=== PATIENT | female | born 1950 | race Caucasian/White ===

== ENCOUNTER 2019-10-04 12:29 | Inpatient (IN) | payer OTHER, MEDICARE ==
[2019-10-04] MEDS ORDERED: FAMOTIDINE 20 MG/2 ML VIAL IV ONE (13:16)
[2019-10-04] MEDS ORDERED: HYDROMORPHONE HCL 1 MG/ML INJ ONE (13:16)
[2019-10-04] MEDS ORDERED: NA CHLORIDE 0.9% 1,000 ML ONE (13:16)
[2019-10-04] MEDS ORDERED: ONDANSETRON 4 MG/2 ML VIAL ONE (13:16)
[2019-10-04 13:26] LABS: Absolute Lymphocytes (CBC) 2.4 K/uL (0.7-4.9); Basophils % 1.2 % (0-1.3); Hematocrit 41.4 % (36.0-45.0); Lymphocytes % 37.9 % (15.3-44.8); MPV 8.9 fL (7.6-11.3); RBC Red Blood Cell Count 4.73 M/uL (3.86-4.86)
--- NOTE | 2019-10-04 13:30 | RAD REPORT ---
EXAM DESCRIPTION: RAD - Chest Single View - 10/04/2019 12:59 pm CLINICAL HISTORY: CHEST PAIN COMPARISON: Chest Pa And Lat (2 Views) dated 09/22/2018 TECHNIQUE: AP portable chest image was obtained 10/04/2019 12:59 pm . FINDINGS: Lungs are clear. Heart and vasculature are normal. No measurable pleural effusion and no p neumothorax. No acute bony abnormality seen. No acute aortic finding. Mediastinal and hilar granuloma tous type calcifications are seen. IMPRESSION: No acute cardiopulmonary process. No significant change from comparison.
[2019-10-04 13:33] LABS: ALT/SGPT 23 U/L (12-78); AST/SGOT 21 U/L (15-37); Albumin 3.9 g/dL (3.4-5.0); Alkaline Phosphatase 95 U/L (45-117); BUN Blood Urea Nitrogen 16 mg/dL (7-18); Bicarbonate 27 mmol/L (21-32); Bilirubin Direct 0.2 mg/dL (0-0.2); Bilirubin Total 0.5 mg/dL (0.2-1.0); Glucose Level 91 mg/dL (74-106); Magnesium 2.2 mg/dL (1.8-2.4); NT PRO-BNP 103 pg/mL (<125); Potassium 3.9 mmol/L (3.5-5.1); Protein, Total 8.1 g/dL (6.4-8.2); Sodium Level 144 mmol/L (136-145); Troponin (Emerg Dept Use Only) < 0.02 ng/mL (0.0-0.045)
[2019-10-04 13:35] LABS: Protime INR 1.01
--- NOTE | 2019-10-04 14:35 | EDPHYS ---
Physician Documentation [facility] Name: Mary Roberson Age: 68 yrs Sex: Female : 1950 Arrival Date: 10/04/2019 Time: 12:35 Bed 7 Private MD: ED Physician Maxim Glasgow HPI: 10/03 14:32 This 68 yrs old Female presents to ER via EMS with complaints of Chest Pain > ma2 29 y/o. 14:32 The patient or guardian reports chest pain that is located primarily in the substernal ma2 area. Onset: gradually, 1 hour(s) ago. Associated signs and symptoms: Pertinent negatives: abdominal pain, diaphoresis, dizziness, lower extremity swelling. Severity of pain: At its worst the pain was moderate in the emergency department the pain has resolved. The patient has not experienced similar symptoms in the past. Historical: - Allergies: 12:25 unknown antibiotics; rb1 - Home Meds: 12:28 losartan 100 mg oral tab 1 tab once daily [Active]; amlodipine 10 mg tab 1 tab once rb1 daily [Active]; carvedilol 6.25 mg oral tab 1 tab 2 times per day [Active]; atorvastatin 10 mg oral tab 1 tab once daily [Active]; famotidine 20 mg Oral tab 1 tab 2 times per day [Active]; Ventolin HFA 90 mcg/actuation Nebulizer HFAA 1 puff twice a day [Active]; Osphena 60 mg oral tab 0.5 tab every other day [Active]; aspirin 81 mg Oral chew 1 tab once daily [Active]; Tylenol Arthritis Pain 650 mg oral TbER 2 tabs twice a day [Active]; cetirizine 10 mg oral tab 1 tab once daily [Active]; ClearLax 17 gram/dose oral powd once daily [Active]; vitamin E 400 unit Oral cap daily [Active]; Emergen-C 1,000 mg oral pwep daily [Active]; Hair,Skin and Nails 5000 mcg oral tab [Active]; CoQ-10 100 mg oral cap [Active]; multi-probiotics [Active]; Cosamin DS oral oral [Active]; melatonin 0.5 mg Oral tab [Active]; - PMHx: 12:25 Hypertension; Fibromyalgia; carotid blockage; rb1 - PSHx: 12:25 Tonsillectomy; Appendectomy; Tubal ligation; right knee; rb1 - Immunization history:: Adult Immunizations up to date. - Social history:: Smoking status: Patient/guardian denies using Patient/guardian denies using alcohol, street drugs, The patient lives with family. - Family history:: not pertinent. ROS: 14:32 Constitutional: Negative for fever, chills, and weight loss. ma2 14:32 All other systems are negative. Exam: 14:32 Constitutional: This is a well developed, well nourished patient who is awake, alert, ma2 and in no acute distress. Chest/axilla: Normal chest wall appearance and motion. Nontender with no deformity. No lesions are appreciated. Cardiovascular: Regular rate and rhythm with a normal S1 and S2. No gallops, murmurs, or rubs. Normal PMI, no JVD. No pulse deficits. Respiratory: Lungs have equal breath sounds bilaterally, clear to auscultation and percussion. No rales, rhonchi or wheezes noted. No increased work of breathing, no retractions or nasal flaring. Abdomen/GI: Soft, non-tender, with normal bowel sounds. No distension or tympany. No guarding or rebound. No evidence of tenderness throughout. MS/ Extremity: Pulses equal, no cyanosis. Neurovascular intact. Full, normal range of motion. Neuro: Awake and alert, GCS 15, oriented to person, place, time, and situation. Cranial nerves II-XII grossly intact. Motor strength 5/5 in all extremities. Sensory grossly intact. Cerebellar exam normal. Normal gait. Vital Signs: 12:25 BP 182 / 64; Pulse 68; Resp 16; Temp 97.9(O); Pulse Ox 100% on R/A; rb1 12:28 BP 182 / 64; Pulse 68; Resp 16; Temp 97.9(O); Pulse Ox 100% on R/A; Weight 63.5 kg (R); rb1 Height 5 ft. 0 in. (152.40 cm) (R); 13:25 BP 178 / 65; Pulse 63; Resp 17; Pulse Ox 98% on R/A; rb1 14:25 BP 188 / 70; Pulse 67; Resp 17; Pulse Ox 99% on R/A; rb1 15:25 BP 186 / 72; Pulse 67; Resp 17; Pulse Ox 99% on R/A; rb1 12:28 Body Mass Index 27.34 (63.50 kg, 152.40 cm) rb1 MDM: 12:36 Patient medically screened. ma2 14:32 Differential diagnosis: abnormal EKG, gastroesophageal reflux disease (GERD), pleurisy, ma2 stable angina. HEART Score: History:. The patient was given aspirin in the Emergency Department. AMRITA Risk Score: not applicable. Data reviewed: vital signs, nurses notes. Counseling: I had a detailed discussion with the patient and/or guardian regarding: the historical points, exam findings, and any diagnostic results supporting the discharge/admit diagnosis, the presence of at least one elevated blood pressure reading (>120/80) during this emergency department visit, the need for outpatient follow up. Response to treatment: the patient's symptoms have markedly improved after treatment. 10/03 12:36 Order name: Basic Metabolic Panel; Complete Time: 14:17 ma2 10/03 12:36 Order name: CBC with Diff; Complete Time: 14:17 ma2 10/03 12:36 Order name: LFT's; Complete Time: 14:17 ma2 10/03 12:36 Order name: Magnesium; Complete Time: 14:17 ma2 10/03 12:36 Order name: NT PRO-BNP; Complete Time: 14:17 ma2 10/03 12:36 Order name: PT-INR; Complete Time: 14:17 ma2 10/03 12:36 Order name: Troponin (emerg Dept Use Only); Complete Time: 14:17 ma2 10/03 14:44 Order name: Basic Metabolic Panel EDMS 10/03 14:44 Order name: Basic Metabolic Panel EDMS 10/03 14:44 Order name: CBC with Automated Diff EDMS 10/03 14:44 Order name: CBC with Automated Diff EDMS 10/03 14:44 Order name: Troponin I EDMS 10/03 14:44 Order name: Troponin I EDMS 10/03 14:45 Order name: Troponin I EDMS 10/03 12:36 Order name: XRAY Chest (1 view); Complete Time: 14:17 ma2 10/03 12:36 Order name: EKG; Complete Time: 12:37 ma2 10/03 12:36 Order name: Cardiac monitoring; Complete Time: 13:27 ma2 10/03 12:36 Order name: EKG - Nurse/Tech; Complete Time: 13:27 ma2 10/03 12:36 Order name: IV Saline Lock; Complete Time: 13:27 ma2 10/03 12:36 Order name: Labs collected and sent; Complete Time: 13:27 ma2 10/03 14:44 Order name: CONS Physician Consult EDCT 10/03 14:44 Order name: Regular EDMS 10/03 14:44 Order name: EKG Electrocardiogram EDCT 10/03 14:44 Order name: EKG Electrocardiogram EDCT 10/03 14:44 Order name: EKG Electrocardiogram EDCT 10/03 14:44 Order name: EKG Electrocardiogram EDCT 10/03 12:36 Order name: O2 Per Protocol; Complete Time: 13:28 ma2 10/03 12:36 Order name: O2 Sat Monitoring; Complete Time: 14:10 ma2 Administered Medications: 13:20 Drug: NS 0.9% 1000 ml Route: IV; Rate: 1 bolus; Site: left hand; rb1 13:20 Drug: Dilaudid 1 mg Route: IVP; Site: left hand; rb1 13:35 Follow up: Response: No adverse reaction; Pain is decreased rb1 13:20 Drug: Zofran (Ondansetron) 4 mg Route: IVP; Site: left hand; rb1 13:35 Follow up: Response: No adverse reaction rb1 13:20 Drug: Pepcid 20 mg Route: IVP; Site: left hand; rb1 13:35 Follow up: Response: No adverse reaction rb1 Disposition: 10/04/19 14:35 Hospitalization ordered by Feliciano Diallo for Observation. Preliminary diagnosis is Chest pain on breathing. - Bed requested for Telemetry/MedSurg (observation). - Status is Observation. rb1 - Condition is Stable. - Problem is new. - Symptoms are unchanged. Signatures: Dispatcher [employer] [facility] Harper Miller RN RN dw Barber, Rebecca, RN RN rb1 Maxim Glagsow MD MD ma2 Corrections: (The following items were deleted from the chart) 15:07 14:35 Hospitalization Ordered by Feliciano Diallo MD for Observation. Preliminary diagnosis dw is Chest pain on breathing. Bed requested for Telemetry/MedSurg (observation). Status is Observation. Condition is Stable. Problem is new. Symptoms are unchanged. ma2 16:00 15:07 10/04/2019 14:35 Hospitalization Ordered by Feliciano Diallo MD for Observation. rb1 Preliminary diagnosis is Chest pain on breathing. Bed requested for Telemetry/MedSurg (observation). Status is Observation. Condition is Stable. Problem is new. Symptoms are unchanged. dw
--- NOTE | 2019-10-04 14:35 | ER ---
Nurse's Notes [facility] Name: Mary Roberson Age: 68 yrs Sex: Female : 1950 Arrival Date: 10/04/2019 Time: 12:35 Bed 7 Private MD: Diagnosis: Chest pain on breathing Presentation: 10/03 12:28 Chief complaint: EMS states: Pt. is A \T\ O x 4, c/o SOB and chest pain that radiates to rb1 the back and jaw. BP 226/92, EMS administered Nitro 0.4 mg SL x 1. BP 164/98, P 70, BS 86. Coronavirus screen: The patient has NOT traveled to [place] in the past 14 days. The patient has NOT had contact with known and/or suspected case of Coronavirus. Ebola Screen: Patient negative for fever greater than or equal to 101.5 degrees Fahrenheit, and additional compatible Ebola Virus Disease symptoms. Initial Sepsis Screen: Does the patient meet any 2 criteria? No. Patient's initial sepsis screen is negative. Does the patient have a suspected source of infection? No. Patient's initial sepsis screen is negative. Risk Assessment: Do you want to hurt yourself or someone else? Patient reports no desire to harm self or others. 12:28 Method Of Arrival: EMS: [facility] rb1 12:28 Acuity: LAURIE 3 rb1 Triage Assessment: 12:25 General: Appears in no apparent distress. comfortable, Behavior is calm, cooperative. rb1 Pain: Complains of pain in chest Pain radiates to back and jaw. Neuro: Level of Consciousness is awake, alert, obeys commands, Oriented to person, place, time, situation. Cardiovascular: Capillary refill < 3 seconds is brisk in bilateral fingers. Respiratory: Airway is patent Respiratory effort is even, unlabored, Respiratory pattern is regular, symmetrical. GI: No signs and/or symptoms were reported involving the gastrointestinal system. : No signs and/or symptoms were reported regarding the genitourinary system. Derm: Skin is pink, warm \T\ dry. Historical: - Allergies: 12:25 unknown antibiotics; rb1 - Home Meds: 12:28 losartan 100 mg oral tab 1 tab once daily [Active]; amlodipine 10 mg tab 1 tab once rb1 daily [Active]; carvedilol 6.25 mg oral tab 1 tab 2 times per day [Active]; atorvastatin 10 mg oral tab 1 tab once daily [Active]; famotidine 20 mg Oral tab 1 tab 2 times per day [Active]; Ventolin HFA 90 mcg/actuation Nebulizer HFAA 1 puff twice a day [Active]; Osphena 60 mg oral tab 0.5 tab every other day [Active]; aspirin 81 mg Oral chew 1 tab once daily [Active]; Tylenol Arthritis Pain 650 mg oral TbER 2 tabs twice a day [Active]; cetirizine 10 mg oral tab 1 tab once daily [Active]; ClearLax 17 gram/dose oral powd once daily [Active]; vitamin E 400 unit Oral cap daily [Active]; Emergen-C 1,000 mg oral pwep daily [Active]; Hair,Skin and Nails 5000 mcg oral tab [Active]; CoQ-10 100 mg oral cap [Active]; multi-probiotics [Active]; Cosamin DS oral oral [Active]; melatonin 0.5 mg Oral tab [Active]; - PMHx: 12:25 Hypertension; Fibromyalgia; carotid blockage; rb1 - PSHx: 12:25 Tonsillectomy; Appendectomy; Tubal ligation; right knee; rb1 - Immunization history:: Adult Immunizations up to date. - Social history:: Smoking status: Patient/guardian denies using Patient/guardian denies using alcohol, street drugs, The patient lives with family. - Family history:: not pertinent. Screenin:28 Abuse screen: Denies threats or abuse. Nutritional screening: No deficits noted. rb1 Tuberculosis screening: No symptoms or risk factors identified. Fall Risk None identified. Assessment: 12:28 General: See triage assessment. rb1 12:55 Reassessment: Called lab to come and draw the labs due to the pt. being a difficult rb1 stick. 13:47 Reassessment: Patient appears in no apparent distress at this time. Patient and/or rb1 family updated on plan of care and expected duration. Pain level reassessed. Patient is alert, oriented x 3, equal unlabored respirations, skin warm/dry/pink. Family at the bedside. 14:47 Reassessment: Patient appears in no apparent distress at this time. No changes from rb1 previously documented assessment. 15:25 Reassessment: Called report to ROSE Bennett. Information from the SBAR was given. All rb1 questions asked and answered. 15:31 Reassessment: Patient appears in no apparent distress at this time. Patient and/or rb1 family updated on plan of care and expected duration. Pain level reassessed. Patient is alert, oriented x 3, equal unlabored respirations, skin warm/dry/pink. Vital Signs: 12:25 BP 182 / 64; Pulse 68; Resp 16; Temp 97.9(O); Pulse Ox 100% on R/A; rb1 12:28 BP 182 / 64; Pulse 68; Resp 16; Temp 97.9(O); Pulse Ox 100% on R/A; Weight 63.5 kg (R); rb1 Height 5 ft. 0 in. (152.40 cm) (R); 13:25 BP 178 / 65; Pulse 63; Resp 17; Pulse Ox 98% on R/A; rb1 14:25 BP 188 / 70; Pulse 67; Resp 17; Pulse Ox 99% on R/A; rb1 15:25 BP 186 / 72; Pulse 67; Resp 17; Pulse Ox 99% on R/A; rb1 12:28 Body Mass Index 27.34 (63.50 kg, 152.40 cm) rb1 ED Course: 12:25 Arm band placed on right wrist. rb1 12:28 Patient has correct armband on for positive identification. Placed in gown. Bed in low rb1 position. Call light in reach. Side rails up X 1. quality assurance monitor chassis on. Pulse ox on. NIBP on. Warm blanket given. 12:28 Maintain EMS IV. Dressing intact. Good blood return noted. Site clean \T\ dry. Gauge \T\ rb 1 site: 18 G L hand. 12:35 Patient arrived in ED. rb1 12:35 Flavia Wells, RN is Primary Nurse. rb1 12:36 Maxim Glasgow MD is Attending Physician. ma2 12:39 Triage completed. rb1 12:57 X-ray completed. Portable x-ray completed in exam room. Patient tolerated procedure jb2 well. 12:58 EKG done, by technical training coordinator. reviewed by Maxim Glasgow MD. at1 13:04 XRAY Chest (1 view) In Process Unspecified. EDMS 14:35 Feliciano Diallo MD is Hospitalizing Provider. ma2 15:38 No provider procedures requiring assistance completed. Patient admitted, IV remains in rb1 place. Administered Medications: 13:20 Drug: NS 0.9% 1000 ml Route: IV; Rate: 1 bolus; Site: left hand; rb1 13:20 Drug: Dilaudid 1 mg Route: IVP; Site: left hand; rb1 13:35 Follow up: Response: No adverse reaction; Pain is decreased rb1 13:20 Drug: Zofran (Ondansetron) 4 mg Route: IVP; Site: left hand; rb1 13:35 Follow up: Response: No adverse reaction rb1 13:20 Drug: Pepcid 20 mg Route: IVP; Site: left hand; rb1 13:35 Follow up: Response: No adverse reaction rb1 Outcome: 14:35 Decision to Hospitalize by Provider. ma2 15:38 Admitted to Tele accompanied by tech, via wheelchair, room 412, with chart, Report rb1 called to ROSE Bennett 15:38 Condition: stable 15:38 Instructed on the need for admit. 15:42 Patient left the ED. rb1 Signatures: Dispatcher [employer] EDMS David Andino2 Alexandrea Watson, electronic news gathering camera person EKG Tat1 Flavia Wells, RN RN rb1 Maxim Glasgow MD MD ma2 Corrections: (The following items were deleted from the chart) 16:01 16:00 Patient left the ED. rb1 rb1
[2019-10-04 15:53] VITALS: BMI 27.3
[2019-10-04] MEDS: cloNIDine HCL 0.1 MG TAB PO PRN (16:38)
--- NOTE | 2019-10-04 18:13 | P.HP ---
Certification for Inpatient Patient admitted to: Observation With expected LOS: <2 Midnights Practitioner: I am a practitioner with admitting privileges, knowledge of patient current condition, hospital course, and medical plan of care. Services: Services provided to patient in accordance with Admission requirements found in Title 42 Section 412.3 of the Code of Federal Regulations Patient History Date of Service: 10/04/19 Reason for admission: RIGHT SIDE CHEST PAIN History of Present Illness: HAS HTN THAT IS LABILE, COMES WITH R SIDE CHEST WALL PAIN, RADIATION TO RIGHT SIDE OF JAW FOR AN HOUR, SHE RECEIVED PAIN MEDS FROM ER AND HAD RELIEF. SHE HAS NORMAL EKG AND NORMAL ENZYMES. HER BP WAS HIGH AT 200 SYSTOLIC. SHE IS NOW PAINFREE. Allergies No Known Allergies Allergy (Verified 03/27/17 09:29) Home Medications: Amlodipine [Norvasc*] 10 mg PO DAILY 03/26/17 Ascorbic Acid/Multivit-Min [Emergen-C 1,000 mg Packet] 1 packet PO SEECOM Cholecalciferol (Vitamin D3) [Vitamin D3] 1 cap PO DAILY 03/26/17 carvediloL [Coreg*] 12.5 mg PO BID 03/26/17 Acetaminophen [Tylenol Arthritis] 2 tab PO BEDTIME 10/04/19 Atorvastatin Calcium 1 tab PO BEDTIME 10/04/19 Famotidine 1 tab PO BID 10/04/19 Losartan Potassium 1 tab PO DAILY 10/04/19 - Past Medical/Surgical History Has patient received pneumonia vaccine in the past: Yes Diabetic: No -: HTN -: Fibromyalgia -: carotid blockage -: COPD -: Tonsillectomy -: Appy -: Tubal ligation -: Total knee Sx, Right - Social History Smoking Status: Former smoker Alcohol use: Yes CD- Drugs: No Caffeine use: Yes Place of Residence: Home Review of Systems 10-point ROS is otherwise unremarkable Physical Examination - Vital Signs Temperature: 96.9 F Blood Pressure: 157/70 Pulse: 69 Respirations: 16 Pulse Ox (%): 100 - Physical Exam General: Alert, Mild distress HEENT: Atraumatic, PERRLA, Mucous membr. moist/pink, EOMI, Sclerae nonicteric Neck: Supple, 2+ carotid pulse no bruit, No LAD, Without JVD or thyroid abnormality Respiratory: Clear to auscultation bilaterally, Normal air movement Cardiovascular: Regular rate/rhythm, Normal S1 S2 Gastrointestinal: Normal bowel sounds, No tenderness Musculoskeletal: No tenderness Integumentary: No rashes Neurological: Normal gait, Normal speech, Normal strength at 5/5 x4 extr, Normal tone, Normal affect Lymphatics: No axilla or inguinal lymphadenopathy - Studies Laboratory Data (last 24 hrs) 10/04/19 13:05: PT 12.0, INR 1.01 10/04/19 13:05: WBC 6.4, Hgb 14.0, Hct 41.4, Plt Count 247 10/04/19 13:05: Sodium 144, Potassium 3.9, BUN 16, Creatinine 0.66, Glucose 91, Magnesium 2.2, Total Bilirubin 0.5, AST 21, ALT 23, Alkaline Phosphatase 95 Assessment and Plan - Problems (Diagnosis) (1) Atypical chest pain Current Visit: Yes Status: Acute Plan: ORDER AOR DISSECTION PROTOCOL PAIN SEEMS NON CARDIAC IN ORIGIN. DR. FERREIRA OR COLLIN WILL SEE HER. (2) Labile essential hypertension Current Visit: Yes Status: Chronic Plan: CHRONIC ISSUE. RENAL DOPPLER ORDER. 24 HOUR URINE TEST FOR BP. - Advance Directives Does patient have a Living Will: Yes Does patient have a Durable POA for Healthcare: Yes
--- NOTE | 2019-10-04 19:30 | RAD REPORT ---
EXAM DESCRIPTION: CT - Angio Aorta For Dissection - 10/04/2019 7:03 pm CLINICAL HISTORY: . Chest and ABD pain COMPARISON: 2017 TECHNIQUE: Computed tomography angiography of the chest, abdomen pelvis were obtained. 100 cc Isovue 370 was administered intravenously. Coronal and sagittal reconstruction were performed. MIP 3D reconstruction was performed All CT scans are performed using dose optimization technique as appropriate and may include automated exposure control or mA/KV adjustment according to patient size. FINDINGS: An aortic dissection is not seen. An aortic aneurysm is not displayed. High-grade stenosis celiac artery. SMA and CASSY are patent . 2 left renal arteries. A high-grade stenosis inferior left renal artery. Moderate stenosis proximal l eft renal artery 7 x 3 millimeter right middle lobe nodule unchanged likely benign. Mild centrilobular emphysema A 10 millimeter nodule right lobe of thyroid gland A pericardial effusion is not seen. A pleural effusion is not noted. The liver,spleen, pancreas adrenals kidneys demonstrate no significant abnormality. No evidence of diverticulitis. A moderate amount stool within the colon IMPRESSION: Negative for an aortic dissection. 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 Follow-up ultrasound in 1 year is recommende d for re-evaluation
[2019-10-04] MEDS ORDERED: ACETAMINOPHEN 500 MG TAB PO ONE (20:11)
[2019-10-04 20:52] LABS: MPV 8.3 fL (7.6-11.3)
[2019-10-04 20:54] LABS: Platelet Estimate ADEQ
[2019-10-04] MEDS: ACETAMINOPHEN PO SCH (21:00)
[2019-10-04] MEDS ORDERED: ACETAMINOPHEN 500 MG TAB PO PRN (21:00)
[2019-10-04] MEDS: carvediloL 12.5 MG TAB PO SCH (21:22)
[2019-10-04] MEDS: ATORVASTATIN 10 MG TAB PO SCH (21:26)
[2019-10-04] MEDS: ENOXAPARIN 40 MG/0.4 ML SQ SCH (21:27)
[2019-10-04] MEDS: FAMOTIDINE 20 MG TAB PO SCH (22:41)
[2019-10-04] MEDS ORDERED: MELATONIN 3 MG TABLET PO ONE (22:48)
[2019-10-05 04:25] LABS: Absolute Lymphocytes (CBC) 2.5 K/uL (0.7-4.9); Basophils % 1.1 % (0-1.3); Hematocrit 34.8 % (36.0-45.0); Lymphocytes % 41.5 % (15.3-44.8); MPV 8.9 fL (7.6-11.3); RBC Red Blood Cell Count 3.93 M/uL (3.86-4.86)
[2019-10-05 04:42] LABS: BUN Blood Urea Nitrogen 14 mg/dL (7-18); Bicarbonate 29 mmol/L (21-32); Glucose Level 92 mg/dL (74-106); Potassium 3.9 mmol/L (3.5-5.1); Sodium Level 144 mmol/L (136-145)
--- NOTE | 2019-10-05 08:26 | EKG ---
Test Date: 2019-10-04 Test Time: 12:36:24 Crawler Tractor Operator: JAYDEN MEASUREMENT RESULTS: Intervals: Rate: 60 AL: 186 QRSD: 88 QT: 408 QTc: 408 [place]: P: 1 AL: 186 QRS: 19 T: 25 INTERPRETIVE STATEMENTS: Normal sinus rhythm Normal ECG Compared to ECG 03/26/2017 09:58:57 No significant changes Electronically Signed On 10-05-19 08:25:02 TECHNICAL TRAINING COORDINATOR by Jose Majano
[2019-10-05] MEDS ORDERED: HOME MED 1 EA UNK (Cholecalciferol (Vitamin D3) [Vitamin D3] 1 CAP) PO SCH (09:00)
[2019-10-05] MEDS ORDERED: HOME MED 1 EA UNK (Losartan Potassium [Losartan Potassium] 1 TAB) PO SCH (09:00)
[2019-10-05] MEDS ORDERED: VITAMIN D 5,000 UNIT CAP PO SCH (09:00)
--- NOTE | 2019-10-05 09:04 | EKG ---
Test Date: 2019-10-05 Test Time: 08:25:12 Admissions Coordinator: JAYDEN MEASUREMENT RESULTS: Intervals: Rate: 56 SD: 216 QRSD: 84 QT: 406 QTc: 391 [place]: P: 18 SD: 216 QRS: 18 T: 48 INTERPRETIVE STATEMENTS: Sinus bradycardia with 1st degree AV block Cannot rule out Anterior infarct, age undetermined Abnormal ECG Compared to ECG 10/04/2019 12:36:24 First degree AV block now present Myocardial infarct finding now present Sinus rhythm no longer present Electronically Signed On 10-05-19 09:03:46 BRAND EXECUTIVE by Jose Majano
[2019-10-05] MEDS ORDERED: REGADENOSON 0.4 MG/5 ML SYR IV ONE (09:18)
--- NOTE | 2019-10-05 09:18 | CON ---
History Of Present Illness: Ms. Roberson was having chest pain and came to the hospital. Since being he re, EKGs and enzymes look okay. 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 The patie nt does not have any history of atherosclerotic vascular disease that required any interventions. No stents or heart attacks or bypasses or strokes. She has longstanding hypertension, but her blood pr essure has been more labile recently. She does not have diabetes. She was a cigarette smoker but qu it more than 20 years ago. She has dyslipidemia. Medicine List: 1.Vitamin D3. 2.Coreg 12.5 b.i.d. 3.Amlodipine. 4.Atorvastatin 10. 5.Losartan 100. 6.Famotidine 20 b.i.d. 7.Melatonin at bedtime. 8.She uses Tylenol p.r.n. Physical Examination: Vital Signs: She is 5 feet tall, 140 pounds. General: Alert, oriented, pleasant, not in distress. Heart: No carotid bruit. Lungs: Clear. Cardiac: Normal. I do not appreciate any abdominal bruit. Since she has atherosclerosis noted on t he CT angio, I would recommend we do a pharmacologic stress test today and then consider either doing an angiogram of the aorta with possible stent to the renal artery and celiac artery, I think that in combination with a cardiac catheterization. Thank you very much for your kind referral of Ms. Roberson. I will follow her with you. MARTÍNEZ Voice ID: [id number] Report ID: [id number]
--- NOTE | 2019-10-05 11:26 | ECHO ---
HEIGHT: 5 ft 0 in WEIGHT: 140 lb 0 oz DATE OF STUDY: 10/05/[address]: Jose Majano MD 2-DIMENSIONAL: YES M.MODE: YES DOPPLER: YES COLOR FLOW: YES TDS: NO PORTABLE: NO DEFINITY: NO BUBBLE STUDY: NO DIAGNOSIS: HYPERTENSION/ CHEST PAIN CARDIAC HISTORY: CATHERIZATION: NO SURGERY: NO PROSTHETIC VALVE: NO PACEMAKER: NO MEASUREMENTS (cm) DIASTOLIC (NORMALS) SYSTOLIC (NORMALS) IVSd 1.1 (0.6-1.2) LA Diam 3.5 (1.9-4.0) LVEF 87% LVIDd 4.4 (3.5-5.7) LVIDs 1.9 (2.0-3.5) %FS 56% LVPWd 1.0 (0.6-1.2) Ao Diam 2.3 (2.0-3.7) 2 DIMENSIONAL ASSESSMENT: RIGHT ATRIUM: NORMAL LEFT ATRIUM: NORMAL RIGHT VENTRICLE: NORMAL LEFT VENTRICLE: NORMAL TRICUSPID VALVE: NORMAL MITRAL VALVE: NORMAL PULMONIC VALVE: NORMAL AORTIC VALVE: NORMAL PERICARDIAL EFFUSION: NONE AORTIC ROOT: NORMAL LEFT VENTRICULAR WALL MOTION: NORMAL. DOPPLER/COLOR FLOW: NORMAL. COMMENTS: NORMAL 2D ECHO WITH DOPPLER. TECHNOLOGIST: BETY GARNER
[2019-10-05] MEDS: FAMOTIDINE 20 MG TAB PO SCH ×2 (11:59→20:37)
[2019-10-05] MEDS: carvediloL 12.5 MG TAB PO SCH ×2 (11:59→20:37)
[2019-10-05] MEDS: LOSARTAN POTASSIUM 50 MG TABLET PO SCH (11:59)
[2019-10-05] MEDS: ENOXAPARIN 40 MG/0.4 ML SQ SCH (11:59)
[2019-10-05] MEDS: AMLODIPINE 10 MG TAB PO SCH (11:59)
--- NOTE | 2019-10-05 12:07 | RAD REPORT ---
EXAM DESCRIPTION: NM - Rest Stress Cardiac Imaging - 10/05/2019 12:00 pm CLINICAL HISTORY: CP Chest pain. COMPARISON: No comparisons TECHNIQUE: The patient was administered approximately 10mCi of Tc 99m Sestamibi prior to resting SPE CT imaging of the heart. The patient was then administered approximately 30 mCi of Tc 99m Sestamibi f ollowing exercise or pharmacologic stress. Multiplanar SPECT images were reviewed. FINDINGS: No stress induced ischemic defect is seen to suggest stress induced ischemia. No fixed def ect is seen to suggest hibernating myocardium or scarred myocardium. The end diastolic volume is 73 ml, the end systolic volume is 18 ml, and the ejection fraction is 75 %. IMPRESSION: No stress induced ischemia.
--- NOTE | 2019-10-05 13:02 | TREADPHA ---
DX: HYPERTENSION, CHEST PAIN Date of Study: 10/05/2019 Ht: 5 0 Wt: 140 lb 0 oz Consulting Physician: COLLIN MEDICATIONS: TYLENOL, NORVASC, LIPITOR, COREG, CATAPRES, LOVENOX, COZAAR HISTORY: 68 YEAR OLD FEMALE WITH HISTORY OF HYPERTENSION, HIGH CHOLESTEROL, GERD, AND FIBROMYALGIA. ADMITTED FOR SHORTNESS OF BREATH AND CHEST PAIN. DENIES PAIN AT TIME OF TESTING. PHYSICIAL EXAMINATION: RESTING B.P.: 173/65 RESTING H.R.: 60 RESTING EKG: SINUS WITH FIRST DEGREE AV BLOCK. PROTOCOL: LEXISCAN EXERCISE TIME: 3:30 B.P. AT PEAK STRESS: 159/60 IMPRESSION: LEXISCAN STRESS TEST PERFORMED. CARDIOLITE INJECTED PER PROTOCOL. NO SUPRAVENTRICULAR TACHYCARDIA, VENTRICULAR TACHYCARDIA OR ARRYTHMIA NOTED. PATIENT DENIED CHEST PAIN. TOLERATED WELL. SEE NUCLEAR MEDICINE REPORT. NON DIAGNOSTIC EKG WITH LEXISCAN STRESS.
[2019-10-05] MEDS: ATORVASTATIN 10 MG TAB PO SCH (20:37)
[2019-10-05] MEDS: cloNIDine HCL 0.1 MG TAB PO PRN (20:38)
[2019-10-05] MEDS: ACETAMINOPHEN PO SCH (20:41)
[2019-10-05] MEDS ORDERED: MELATONIN 0.5 MG PO SCH (21:00)
--- NOTE | 2019-10-05 21:05 | P.PN ---
Subjective Date of Service: 10/05/19 Chief Complaint: BP HIGH. Subjective: No C/O voiced SHE IS STABLE. WAITING FOR ST TEST THIS AM. DONE LATER AND IT NORMAL. SHE HAS BILATERAL RENAL ARTERY STENOSIS THAT SHE WILL GET STENTS IN AM AFTER ANGIOGRAM CONFIRMATION. Review of Systems 10-point ROS is otherwise unremarkable Physical Examination - Vital Signs Temperature: 97.2 F Blood Pressure: 188/81 Pulse: 65 Respirations: 16 Pulse Ox (%): 98 - Physical Exam General: In no apparent distress HEENT: Atraumatic, PERRLA, EOMI Neck: Supple, JVD not distended Respiratory: Clear to auscultation bilaterally, Normal air movement Cardiovascular: Regular rate/rhythm, Normal S1 S2 Gastrointestinal: Normal bowel sounds, No tenderness Musculoskeletal: No tenderness Integumentary: No rashes Neurological: Normal speech, Normal tone, Normal affect Lymphatics: No axilla or inguinal lymphadenopathy - Studies Medications List Reviewed: Yes Assessment And Plan - Current Problems (Diagnosis) (1) Atypical chest pain Current Visit: Yes Status: Acute Plan: ORDER AOR DISSECTION PROTOCOL PAIN SEEMS NON CARDIAC IN ORIGIN. DR. FERREIRA OR COLLIN WILL SEE HER. NEG ST TEST. (2) Labile essential hypertension Current Visit: Yes Status: Chronic Plan: CHRONIC ISSUE. RENAL DOPPLER ORDER. 24 HOUR URINE TEST FOR BP. STENTS FOR RENAL ARTERY STENOSIS IN AM.
[2019-10-06 04:23] LABS: Absolute Lymphocytes (CBC) 2.3 K/uL (0.7-4.9); Basophils % 1.6 % (0-1.3); Hematocrit 37.3 % (36.0-45.0); Lymphocytes % 40.7 % (15.3-44.8); MPV 8.9 fL (7.6-11.3); RBC Red Blood Cell Count 4.21 M/uL (3.86-4.86)
[2019-10-06] MEDS: AMLODIPINE 10 MG TAB PO SCH (06:10)
[2019-10-06] MEDS: LOSARTAN POTASSIUM 50 MG TABLET PO SCH (06:10)
[2019-10-06] MEDS: carvediloL 12.5 MG TAB PO SCH (06:11)
[2019-10-06] MEDS: FAMOTIDINE 20 MG TAB PO SCH (07:09)
[2019-10-06] MEDS ORDERED: HEPA 1000U/500MLS 2,000 UNIT/1,000 ML BAG IV ONE (08:06)
[2019-10-06] MEDS ORDERED: NA CHLORIDE 0.9% 500 ML ONE (08:30)
[2019-10-06] MEDS ORDERED: MIDAZOLAM HCL 2 MG/2 ML INJ ONE ×2 (08:35→08:52)
[2019-10-06] MEDS ORDERED: FENTANYL CITR 100 MCG/2 ML ONE (08:35)
[2019-10-06] MEDS ORDERED: ACETYLCYST 20% 4 ML VIAL IH ONE (09:19)
[2019-10-06 10:22] VITALS: O2SAT 97
[2019-10-06] MEDS ORDERED: NA CHLORIDE 0.9% 1,000 ML IV ONE (10:46)
[2019-10-06] MEDS ORDERED: ACETYLCYST 20% 800 MG/4 ML VIAL PO ONE (10:46)
--- NOTE | 2019-10-06 10:47 | OP ---
Surgeon: Peter Monahan MD Zinc Plate Grainer: Padmini Freeman. Patient will receive the IV fluid hydration as well as Mucomyst. She received approximately 250 cc o f contrast and did not want to do an intervention today to avoid an excessive dye load. Procedures: Abdominal angiogram with runoff, bilateral selective renal angiogram and selective sandro c artery angiogram. Indication: Abnormal CT angiogram of the abdomen, abdominal pain, and hypertension. Patient was bro ught to the cath lab technologist as an inpatient on 10/06/2019. She was prepped and draped in routine sterile fa shion, given Versed for sedation. A 6-Spanish sheath introduced in the right common femoral artery jones ccessfully. A pigtail catheter was advanced in the mid abdominal aorta. Angiography was done reveal ing possible celiac artery stenosis and obvious bilateral renal artery stenosis. Multiple views were obtained in lateral views and as well as GHANAIAN caudal views and then selective angiography was done us ing a PERKINS catheter into the celiac artery showing about a 50% celiac artery stenosis in the celiac t runk, although I could not tell for sure if this could be the arcuate ligament as well. Following th at, the renal arteries were selected. There was an accessory left renal artery that was small and pa tent. The main left renal artery and right renal artery were both selected and angiography was done showing bilateral renal artery stenosis about 80% to 90%. The aorta and the iliacs were normal. Complications: None. Blood Loss: 5 cc. A StarClose was used to close the procedure. Anesthesia: Total conscious sedation was 30 minutes. 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 Plan: To do a staged renal artery stent. EDUARDO/AUREA Voice ID: [id number] Report ID: [id number]
[2019-10-06 16:44] VITALS: BP 172/72; TEMP 96.9
[2019-10-06] MEDS ORDERED: ACETAMINOPHEN 325 MG TABLET PO PRN (16:45)
[2019-10-06] MEDS ORDERED: NITROGLYCERIN 0.4 MG/TAB SL PRN (16:46)
[2019-10-06] MEDS ORDERED: NA CHLORIDE 0.9% 1,000 ML IV SCH (17:00)
[2019-10-06 17:36] LABS: Potassium 3.7 mmol/L (3.5-5.1)
--- NOTE | 2019-10-06 21:47 | P.DS ---
Admission Date: 10/06/19 Discharge Date: 10/06/19 Disposition: ROUTINE DISCHARGE Discharge Condition: FAIR Reason for Admission: BP HIGH. - Problems (1) Atypical chest pain Status: Acute (2) Labile essential hypertension Status: Chronic Brief History of Present Illness: HAS HTN THAT IS LABILE, COMES WITH R SIDE CHEST WALL PAIN, RADIATION TO RIGHT SIDE OF JAW FOR AN HOUR, SHE RECEIVED PAIN MEDS FROM ER AND HAD RELIEF. SHE HAS NORMAL EKG AND NORMAL ENZYMES. HER BP WAS HIGH AT 200 SYSTOLIC. SHE IS NOW PAINFREE. Hospital Course: MS FRENCH COMES WITH CHEST PAIN THAT IS ATYPICAL. SHE HAS HAD FLUCTUATING BP. I ORDERED CT ANGIO THAT PROVED THAT SHE HAS BILATERAL RENAL ARTERY STNOSIS. THIS WAS CONFIRMED BY DR. MONAHAN WITH ANGIOGRAM. TO REDUCE ONE TIME ANGIOGRAM LOAD PATIENT WILL GO THROUGH SPEARATE STENTING OF BOTH ARTERIES. SHE IS STABLE FOR DC. Vital Signs/Physical Exam: Temp Pulse Resp BP Pulse Ox 96.9 F 64 18 172/72 H 98 10/06/19 16:00 10/06/19 16:00 10/06/19 16:00 10/06/19 16:00 10/06/19 16:00 Laboratory Data at Discharge: WBC 5.7 K/uL (4.3-10.9) 10/06/19 03:39 Hgb 12.6 g/dL (12.0-15.0) 10/06/19 03:39 Hct 37.3 % (36.0-45.0) 10/06/19 03:39 Plt Count 191 K/uL (152-406) 10/06/19 03:39 PT 12.0 SECONDS (9.2-12.8) 10/04/19 13:05 INR 1.01 10/04/19 13:05 Sodium 143 mmol/L (136-145) 10/06/19 17:06 Potassium 3.7 mmol/L (3.5-5.1) 10/06/19 17:06 BUN 11 mg/dL (7-18) 10/06/19 17:06 Creatinine 0.66 mg/dL (0.55-1.3) 10/06/19 17:06 Glucose 96 mg/dL (74-106) 10/06/19 17:06 Magnesium 2.2 mg/dL (1.8-2.4) 10/04/19 13:05 Total Bilirubin 0.5 mg/dL (0.2-1.0) 10/04/19 13:05 AST 21 U/L (15-37) 10/04/19 13:05 ALT 23 U/L (12-78) 10/04/19 13:05 Alkaline Phosphatase 95 U/L (45-117) 10/04/19 13:05 Troponin I < 0.02 ng/mL (0.0-0.045) 10/04/19 20:44 Home Medications: Amlodipine [Norvasc*] 10 mg PO DAILY 03/26/17 Cholecalciferol (Vitamin D3) [Vitamin D3] 1 cap PO DAILY 03/26/17 carvediloL [Coreg*] 12.5 mg PO BID 03/26/17 Acetaminophen [Tylenol Arthritis] 2 tab PO BEDTIME 10/04/19 Atorvastatin Calcium 1 tab PO BEDTIME 10/04/19 Famotidine 1 tab PO BID 10/04/19 Losartan Potassium 1 tab PO DAILY 10/04/19 Melatonin 0.5 mg PO BEDTIME 10/04/19 Patient Discharge Instructions: DR. MONAHAN WILL TAKE CARE OF THE STENOSIS LATER ON. Diet: AHA Followup: Peter Monahan MD [ACTIVE - CAN ADMIT] - (call to schedule an appointment) Feliciano Diallo MD [Primary Care Provider] - (call to schedule an appointment )
[2019-10-07] MEDS ORDERED: NA CHLORIDE 0.9% 1,000 ML IV SCH (01:00)
[2019-10-11 09:53] LABS: Urine 24HR Volume Metan 2650 mL
[2019-10-11 15:18] LABS: Ur Total Volume (Vanillylmande 2650 mL/24 h
[2019-10-12 12:18] LABS: 24 HR VOLUME 2650 mL/24 h; Epinephrine Level REPORT
== END 2019-10-06 18:14 | disposition home or self-care (01) | DRG 313 ==
LOC: ER 12:29 → ERHOLD 14:41 → 4TH 15:32 → OBSVTOIN 10-06 15:38
PROVIDERS: ADMIT Internal Medicine; ATTEND Internal Medicine
PROC: B40DYZZ Plain Radiography of Aorta and Bilateral Lower Extremity Arteries using Other Contrast (ICD-10-PCS; principal; 2019-10-06)
PROC: B40 Imaging, Lower Arteries, Plain Radiography (ICD-10-PCS; 2019-10-06)
PROC: B40BYZZ Plain Radiography of Other Intra-Abdominal Arteries using Other Contrast (ICD-10-PCS; 2019-10-06)
DX: R07.89 Other chest pain (principal); I10 Essential (primary) hypertension; I70.1 Atherosclerosis of renal artery
CPT/HCPCS: 36252; 36415; 71045; 71275; 74175; 78452; 80048; 80076; 82384; 83735; 83835; 83880; 84484; 84585; 85025; 85049; 85610; 93005; 93017; 93306; 96374; 96375; 99285; A9500; C1760; C1887; C1893; G0378; J1170; J1650; J2250; J2405; J2785; J3010; J7030; J7040; Q9967

== ENCOUNTER 2019-10-13 06:25 | Day surgery (SDC) | payer OTHER, MEDICARE ==
[2019-10-13] MEDS ORDERED: HEPA 1000U/500MLS 1,000 UNIT/500 ML BAG IV ONE (06:52)
[2019-10-13] MEDS ORDERED: LIDOCAINE 1% MPF 30 ML VIAL ONE (06:53)
[2019-10-13] MEDS ORDERED: NA CHLORIDE 0.9% 500 ML ONE (06:59)
[2019-10-13] MEDS ORDERED: MIDAZOLAM HCL 2 MG/2 ML INJ ONE (07:18)
[2019-10-13] MEDS ORDERED: FENTANYL CITR 100 MCG/2 ML ONE (07:18)
[2019-10-13] MEDS ORDERED: ATROPINE SULF 1 MG/10 ML SYR IV ONE (07:19)
[2019-10-13] MEDS ORDERED: HEPARIN 5000 UNIT/ML 1 ML VIAL ONE (08:04)
[2019-10-13] MEDS ORDERED: PRASUGREL (EFFIENT) 10 MG TAB ONE (08:05)
[2019-10-13] MEDS ORDERED: ACETAMINOPHEN 325 MG TABLET ONE (08:46)
--- NOTE | 2019-10-13 09:30 | OP ---
Date of Procedure: 10/13/2019 Surgeon: Peter Monahan MD Corrections Lieutenant: Kannan Hager. Procedure: Right renal artery stent. Indication: Right renal artery stenosis of 80% with uncontrolled hypertension. The patient also has known celiac artery stenosis as well as left renal artery stenosis. She had an angiography approxim ately 2 weeks ago with significant amount of contrast. We decided to do her renal stent in a staged manner. She was brought to the labor law professor today as an outpatient, prepped and draped in the routine st erile fashion, given Versed for sedation. A 6-Polish sheath introduced in the right common femoral a rtery successfully. Angiography there was normal. Angio-Seal was used to close the case. A 6-Frenc h short renal guide was used to cannulate the ostium of the right renal artery. A [place] wire was us ed to cross the lesion. A 5 x 12 Herculink biliary stent was deployed at 11 atmosphere with 0% resid ual. There were no complications. Blood Loss: 5 mL. Postoperative Diagnosis: Successful primary stent of the right renal artery. The patient received h eparin 5000 units. She received Effient 60 mg. She will be at bedrest for 2 hours and go home today . She will see me in the office in 2 weeks. Anesthesia: Total conscious sedation was 30 minutes. EDUARDO/AUREA Voice ID: [id number] Report ID: [id number]
[2019-10-13 09:56] VITALS: TEMP 97
[2019-10-13 10:01] VITALS: O2SAT 98
[2019-10-13 10:48] VITALS: BP 137/52
== END 2019-10-13 10:50 | disposition home or self-care (01) ==
LOC: OR 06:25 → CCL 06:25
DX: I70.1 Atherosclerosis of renal artery (principal); I77.4 Celiac artery compression syndrome; E78.5 Hyperlipidemia, unspecified; Z79.899 Other long term (current) drug therapy; Z87.891 Personal history of nicotine dependence
CPT/HCPCS: 36200; 36251; 37236; 85347; C1725; C1760; J1644; J2250; J3010; J7040

== ENCOUNTER 2019-12-08 21:28 | Observation (INO) | payer OTHER, MEDICARE ==
--- OUTSIDE RECORDS SUMMARY | 2019-12-08 21:30 | XMS REPORT | Clinical Summary ---
:1950 Author Organization [facility] Address [address] [place] [address] Care Team Providers Name Role Phone MD Imani Primary Care Provider Allergies Active Allergy Reactions Severity Noted Date Comments Levofloxacin Other (See Comments) 05/20/2018 CAUSES SHOULDER AND KNEE PAIN Medications Medication Sig Dispensed Refills Start Date End Date Status amLODIPine (NORVASC) Take 10 mg by 0 02/22/2018 Active 10 mg tablet mouth every evening. atorvastatin 0 02/12/2018 Active (LIPITOR) 10 MG tablet betamethasone 0 04/06/2018 Activ e dipropionate (DIPROLENE) 0.05 % ointment carvedilol (COREG) Take 6.25 mg by 0 02/27/2018 Active 6.25 MG tablet mouth 2 (two) times a day with meals. VOLTAREN 1 % gel 0 03/18/2018 Ac tive DULoxetine (CYMBALTA) Take 30 mg by 0 04/29/2018 Active 30 MG capsule mouth every evening. TOTAL DOSE 90 MG DULoxetine (CYMBALTA) Take 60 mg by 0 03/30/2018 Active 60 MG capsule mouth every evening. TOTAL DOSE 90 MG ketoconazole 0 04/06/2018 Active (NIZORAL) 2 % cream hydrocortisone 2.5 % 0 04/06/2018 Active cream losartan-hydrochlorot 0 02/12/2018 Active hiazide (HYZAAR) 100-12.5 mg per tablet mupirocin (BACTROBAN) 0 04/09/2018 Active 2 % ointment LYRICA 75 mg capsule Take 50 mg by 0 03/18/2018 Active mouth daily. ranitidine (ZANTAC) Take 150 mg by 0 Active 150 MG tablet mouth 2 (two) times a day. docusate sodium Take 1 capsule 60 capsule 0 10/21/2018 Active (COLACE) 100 MG (100 mg total) capsuleIndications: by mouth 2 (two) Presence of right times a day. artificial knee joint albuterol sulfate Inhale 2 (two) 0 Active (VENTOLIN HFA INHL) times a day. ospemifene (OSPHENA) Take 1 tablet by 0 05/03/2018 Active 60 mg tablet mouth every other day. naltrexone HCl Take 2 capsules 0 06/17/2018 Active (NALTREXONE ORAL) by mouth daily. promethazine/dextrome Take by mouth 4 0 Active thorphan (four) times a (PROMETHAZINE-DM day. ORAL) fluticasone (FLONASE) 2 sprays by Each 0 Active 50 mcg/actuation Nare route nasal spray daily. acetaminophen Take by mouth. 0 A ctive (TYLENOL ARTHRITIS ORAL) NON FORMULARY 0 Active NON FORMULARY 0 Active omega-3s/dha/epa/fish Take by mouth. 0 Active oil (OMEGA 3 ORAL) NON FORMULARY 0 Active calcium carb,gluc/mag Take by mouth. 0 Active ox,gluc (CALCIUM MAGNESIUM ORAL) ubidecarenone (CO Take by mouth. 0 Active Q-10 ORAL) NON FORMULARY 0 Active HYDROcodone-acetamino 1-2 tablets by 90 tablet 0 12/23/2018 phen (NORCO) 7.5-325 mouth every 4-6 mg per hours as needed tabletIndications: for post op pain Presence of right artificial knee joint amoxicillin (AMOXIL) Take two tablets 4 capsule 0 01/10/2019 0 01/11/2019 500 MG one hour prior capsuleIndications: to dental Presence of right procedure and artificial knee joint two tablets after. Active Problems Problem Noted Date Osteoarthritis of right knee 09/15/2018 Overview: Added automatically from request for erika franco [id number] Lumbar spondylosis 05/26/2016 Encounters Date Type Specialty Care Team Description 02/22/2019 Office Visit Orthopedic Surgery [facility], Pres ence of right artificial knee joint (Primary Dx) 01/10/2019 Office Visit Orthopedic Surgery [facility], Pres ence of right artificial knee joint (Primary Dx) 12/23/2018 Telephone Orthopedic Surgery [facility], Pres ence of right MD artificial knee joint (Primary Dx) after 12/07/2018 Family History Medical History Relation Name Comments Cancer Father Radha Lam Prostate, Rectal Heart disease Father Radha Lam Clotting disorder Mother Anna Padgett Too l viraj ago, can t remember Relation Name Status Comments Father Radha Lam Mother Anna Padgett Social History Tobacco Use Types Packs/Day Years Used Date Former Smoker Cigarettes 0.25 30 08/03/1968 - 0 08/03/1999 Smokeless Tobacco: Never Used Alcohol Use Drinks/Week oz/Week Comments No Sex Assigned at Date Recorded Not on file Job Start Date Occupation Industry Not on file Not on file Not on file Travel History Travel Start Travel End No recent travel history available. Last Filed Vital Signs Vital Sign Reading Time Taken Comments Blood Pressure - - Pulse - - Temperature - - Respiratory Rate - - Oxygen Saturation - - Inhaled Oxygen Concentration - - Weight 71.2 kg (157 lb) 02/22/2019 2:48 PM CDT Height 157.5 cm (5' 2") 02/22/2019 2:48 PM CDT Body Mass Index 28.72 02/22/2019 2:48 PM CDT Plan of Treatment Health Maintenance Due Date Last Done Comments BREAST CANCER SCREENING 12/15/1999 COLONOSCOPY SCREENING 12/15/1999 SHINGLES VACCINES (#1) 12/15/1999 65+ PNEUMOCOCCAL VACCINE (1 of 2 - PCV13) 2014 INFLUENZA VACCINE 03/03/2020 Implants Implanted Type Area Sales Engineering Manager Device Shelf Model / Identifier Expiration Serial / Lot Date Biomet Cc Cruciate Tray 67mm - [id number] IMPLANT Right: [employer] 08/25/2028 [id number] / Implanted: Qty: 1 on 10/20/2018 by [facility] at [facility] DEVICES Knee / [id number] Van Ps Open Intl Fem-Rt 60 - [id number] [id number] IMPLANT Right: [employer] 09/28/2027 [id number] / Implanted: Qty: 1 on 10/20/2018 by [facility] at [facility] DEVICES Knee / [id number] Patella, Series A Asymmetric Pat 31x8 ,Ea - [id number] IPM IMPL ANT Right: [employer] 08/20/2023 [id number] / Implanted: Qty: 1 on 10/20/2018 by [facility] at [facility] DEVICES Knee / [id number] Vangrd Ps Tib Brg 10x63/67 - [id number] IPM IMPLANT Right: [employer] 11/11/2022 [id number] / Implanted: Qty: 1 on 10/20/2018 by [facility] at [facility] DEVICES Knee / [id number] Cement Bone Biomet R 40g - [id number] Surgical Right: [employer]ISA [employer] 05/02/2022 [id number] / Implanted: Qty: 2 on 10/20/2018 by [facility] at [facility] Bone Cement Knee / [id number] Results Not on fileafter 12/07/2018 Insurance Payer Benefit Plan / Subscriber ID Effective Dates Phone Addre ss Type Group MEDICARE MEDICARE PART A xxxxxxxxxxx 2014-Present [place], [place] Medicare AND B AARP AARP SUPPLEMENT xxxxxxxxxxx 2016-Presen Commercial t Advance Directives For more information, please contact: [phone] Type Date Recorded Patient Sql Ssis Developer Explanati on Advance Directives, Living Will 10/14/2018 7:09 AM and Medical Power of Mold Tooler
[2019-12-08] MEDS ORDERED: HYDRALAZINE HCL 20 MG/ML VIAL ONE (22:49)
[2019-12-08 23:18] LABS: Absolute Lymphocytes (CBC) 2.1 K/uL (0.7-4.9); Basophils % 1.4 % (0-1.3); Lymphocytes % 36.4 % (15.3-44.8); Protime INR 0.95; RBC Red Blood Cell Count 3.94 M/uL (3.86-4.86)
--- NOTE | 2019-12-08 23:20 | RAD REPORT ---
EXAM DESCRIPTION: RAD - Chest Single View - 12/08/2019 10:48 pm CLINICAL HISTORY: high bp Chest pain. COMPARISON: Chest Single View dated 10/04/2019; Chest Pa And Lat (2 Views) dated 09/22/2018 FINDINGS: Portable technique limits examination quality. The lungs are grossly clear. The heart is normal in size. No displaced fractures. IMPRESSION: No acute intrathoracic process suspected.
[2019-12-08 23:29] LABS: ALT/SGPT 19 U/L (12-78); AST/SGOT 13 U/L (15-37); Albumin 3.6 g/dL (3.4-5.0); Alkaline Phosphatase 83 U/L (45-117); BUN Blood Urea Nitrogen 23 mg/dL (7-18); Bicarbonate 26 mmol/L (21-32); Bilirubin Direct < 0.1 mg/dL (0-0.2); Bilirubin Total 0.3 mg/dL (0.2-1.0); Glucose Level 100 mg/dL (74-106); Magnesium 2.2 mg/dL (1.8-2.4); NT PRO-BNP 286 pg/mL (<125); Protein, Total 7.2 g/dL (6.4-8.2); Sodium Level 143 mmol/L (136-145); Troponin (Emerg Dept Use Only) < 0.02 ng/mL (0.0-0.045)
[2019-12-08 23:47] LABS: Urine Blood NEGATIVE (NEG); Urine Glucose NEGATIVE (NEG); Urine Protein NEGATIVE (NEG)
[2019-12-09] MEDS ORDERED: MORPHINE 4 MG/ML SYR ONE (01:03)
[2019-12-09] MEDS ORDERED: ASPIRIN 81 MG CHEWABLE TABLET ONE (01:03)
--- NOTE | 2019-12-09 01:04 | ER ---
Nurse's Notes [facility] Name: Mary Roberson Age: 68 yrs Sex: Female : 1950 Arrival Date: 12/08/2019 Time: 21:32 Bed 14 Private MD: Diagnosis: Chest pain, unspecified;Unspecified abdominal pain;Hypertensive heart disease Presentation: 12/07 21:59 Chief complaint: Patient states: I checked my BP its 224/85mmHg and its continually rr5 high and I am having shortness of breath, abdominal pain, shoulder blade pain. denies chest pain. Coronavirus screen: Proceed with normal triage. Ebola Screen: Patient negative for fever greater than or equal to 101.5 degrees Fahrenheit, and additional compatible Ebola Virus Disease symptoms Patient denies exposure to infectious person. Patient denies travel to an Ebola-affected area in the 21 days before illness onset. Initial Sepsis Screen: Does the patient meet any 2 criteria? No. Patient's initial sepsis screen is negative. Does the patient have a suspected source of infection? No. Patient's initial sepsis screen is negative. Risk Assessment: Do you want to hurt yourself or someone else? Patient reports no desire to harm self or others. Note october 13 2019 had a angioplasty under dr. olivares. Onset of symptoms was October 2019. 21:59 Method Of Arrival: Ambulatory rr5 21:59 Acuity: LAURIE 3 rr5 Triage Assessment: 12/08 00:04 General: Appears in no apparent distress. comfortable, Behavior is calm, cooperative. mg2 Respiratory: Onset: The symptoms/episode began/occurred gradually, the patient has mild shortness of breath. Historical: - Allergies: 12/07 22:10 Levaquin; rr5 - Home Meds: 22:10 amlodipine 10 mg tab 1 tab once daily [Active]; aspirin 81 mg Oral chew 1 tab once rr5 daily [Active]; atorvastatin 10 mg Oral tab 1 tab once daily [Active]; carvedilol 6.25 mg Oral tab 1 tab 2 times per day [Active]; cetirizine 10 mg Oral tab 1 tab once daily [Active]; ClearLax 17 gram/dose Oral powd once daily [Active]; CoQ-10 100 mg Oral cap [Active]; Cosamin DS Oral [Active]; Emergen-C 1,000 mg Oral pwep daily [Active]; famotidine 20 mg Oral tab 1 tab 2 times per day [Active]; Hair,Skin and Nails 5000 mcg Oral tab [Active]; losartan 100 mg Oral tab 1 tab once daily [Active]; melatonin 0.5 mg Oral tab [Active]; multi-probiotics [Active]; Osphena 60 mg Oral tab 0.5 tab Every other day [Active]; Tylenol Arthritis Pain 650 mg Oral TbER 2 tabs twice a day [Active]; Ventolin HFA 90 mcg/actuation Nebulizer HFAA 1 puff twice a day [Active]; vitamin E 400 unit Oral cap daily [Active]; clopidogrel oral oral [Active]; - PMHx: 22:10 Fibromyalgia; Hypertension; GERD; Carotid blockage; renal artery blockage; rr5 - Immunization history:: Adult Immunizations up to date. - Social history:: Smoking status: Patient/guardian denies using alcohol, street drugs, tobacco products. Screenin:18 Abuse screen: Denies threats or abuse. Denies injuries from another. Nutritional mg2 screening: No deficits noted. Tuberculosis screening: No symptoms or risk factors identified. Fall Risk IV access (20 points). Assessment: 23:00 General: Appears in no apparent distress. comfortable. Pain: Complains of pain in head. mg2 Neuro: Level of Consciousness is awake, alert, obeys commands, Oriented to person, place, time, situation. Respiratory: Airway is patent Respiratory effort is even, unlabored, Breath sounds are coarse. 23:56 Cardiovascular: Rhythm is regular. Respiratory: Reports shortness of breath. GI: No mg2 signs and/or symptoms were reported involving the gastrointestinal system. : No signs and/or symptoms were reported regarding the genitourinary system. EENT: No signs and/or symptoms were reported regarding the EENT system. Derm: Skin is intact, is healthy with good turgor, Skin is pink, warm \T\ dry. normal. Musculoskeletal: Circulation, motion, and sensation intact. Capillary refill < 3 seconds. 12/08 00:03 Reassessment: Patient appears in no apparent distress at this time. Patient and/or mg2 family updated on plan of care and expected duration. Pain level reassessed. Patient is alert, oriented x 3, equal unlabored respirations, skin warm/dry/pink. 01:53 Reassessment: patient got nauseous after using the restroom, provider informed and mg2 ordered to give Zofran. Vital Signs: 12/07 21:59 BP 223 / 78; Pulse 66; Resp 18; Temp 98; Pulse Ox 96% ; Weight 64.86 kg; Height 5 ft. 0 rr5 in. (152.40 cm); Pain 6/10; 23:17 BP 167 / 59 RA; Pulse 69; Resp 18; Pulse Ox 97% on R/A; mg2 23:17 BP 162 / 53 LA (auto/reg); Pulse 66; Resp 18; Pulse Ox 99% on R/A; mg2 12/08 00:53 BP 190 / 70; Pulse 62; Resp 18; Pulse Ox 98% on R/A; mg2 01:00 BP 200 / 67; Pulse 62; Resp 18; Pulse Ox 100% on R/A; mg2 02:05 BP 151 / 51; Pulse 50; Resp 18; Pulse Ox 99% on R/A; mg2 02:22 BP 142 / 51; Pulse 55; Resp 18; Temp 98; Pulse Ox 100% on R/A; mg2 12/07 21:59 Body Mass Index 27.93 (64.86 kg, 152.40 cm) rr5 ED Course: 12/07 21:32 Patient arrived in ED. bp1 22:07 Triage completed. rr5 22:11 Arm band placed on right wrist. rr5 22:14 Devan Rendon PA is PHCP. cp 22:14 Ra Schroeder MD is Attending Physician. cp 22:32 Venkata Alvarez RN is Primary Nurse. mg2 22:35 No provider procedures requiring assistance completed. Inserted saline lock: 20 gauge mg2 in right antecubital area, using aseptic technique. Blood collected. by ROSE Stephens. 22:48 XRAY Chest (1 view) In Process Unspecified. EDMS 23:13 Radiology exam delayed due to lab results not completed at this time. (BUN/Creatinine). kw1 23:19 Patient has correct armband on for positive identification. mg2 12/08 00:12 CT Aorta for Dissection In Process Unspecified. EDMS 01:03 Feliciano Diallo MD is Hospitalizing Provider. cp 02:23 Patient admitted, IV remains in place. mg2 Administered Medications: 12/07 22:47 Drug: hydrALAZINE 10 mg Route: IV; Rate: calculated rate; Site: right antecubital; mg2 12/08 00:04 Follow up: Response: No adverse reaction; Blood pressure is lowered; IV Status: mg2 Completed infusion 01:02 Drug: Aspirin Chewable Tablet 243 mg Route: PO; mg2 01:53 Follow up: Response: No adverse reaction mg2 01:03 Drug: morphine 4 mg Route: IVP; Site: right antecubital; mg2 01:53 Follow up: Response: No adverse reaction mg2 01:23 Drug: hydrALAZINE 10 mg Route: IV; Rate: calculated rate; Site: right antecubital; mg2 01:51 Follow up: Response: No adverse reaction; IV Status: Completed infusion mg2 01:50 Drug: Zofran (Ondansetron) 4 mg Route: IVP; Site: right antecubital; mg2 Outcome: 01:04 Decision to Hospitalize by Provider. cp 02:26 Admitted to Med/surg accompanied by nurse, via wheelchair, room 214, with chart, Report mg2 called to ROSE Hyatt 02:26 Condition: stable 02:26 Instructed on the need for admit, Demonstrated understanding of instructions. 02:35 Patient left the ED. mg2 Signatures: Dispatcher [employer] EDMS Devan Rendon PA PA cp Ayana Ochoa kw1 Venkata Alvarez RN RN mg2 Angelo Vazquez RN RN rr5 Magi Almodovar Corrections: (The following items were deleted from the chart) 12/07 22:40 22:10 PSHx: Angioplasty; rr5 rr5 23:57 23:00 Neuro: Level of Consciousness is awake, alert, obeys commands, Oriented to mg2 person, place, time, situation, mg2
--- NOTE | 2019-12-09 01:04 | EDPHYS ---
Physician Documentation [facility] Name: Mary Roberson Age: 68 yrs Sex: Female : 1950 Arrival Date: 12/08/2019 Time: 21:32 Bed 14 Private MD: ED Physician Ra Schroeder HPI: 12/07 22:25 This 68 yrs old Female presents to ER via Ambulatory with complaints of High cp Blood Pressure, Shortness Of Breath, Abdominal Pain, Back Pain. 22:25 The patient has elevated blood pressure and discovered this at home, with a home device.cp 22:25 Associated signs and symptoms: Pertinent positives: chest tightness, shortness of cp breath, abdominal pain, Pertinent negatives: vomiting. Severity of symptoms: in the emergency department the blood pressure is improved, mildly. Historical: - Allergies: 22:10 Levaquin; rr5 - Home Meds: 22:10 amlodipine 10 mg tab 1 tab once daily [Active]; aspirin 81 mg Oral chew 1 tab once rr5 daily [Active]; atorvastatin 10 mg Oral tab 1 tab once daily [Active]; carvedilol 6.25 mg Oral tab 1 tab 2 times per day [Active]; cetirizine 10 mg Oral tab 1 tab once daily [Active]; ClearLax 17 gram/dose Oral powd once daily [Active]; CoQ-10 100 mg Oral cap [Active]; Cosamin DS Oral [Active]; Emergen-C 1,000 mg Oral pwep daily [Active]; famotidine 20 mg Oral tab 1 tab 2 times per day [Active]; Hair,Skin and Nails 5000 mcg Oral tab [Active]; losartan 100 mg Oral tab 1 tab once daily [Active]; melatonin 0.5 mg Oral tab [Active]; multi-probiotics [Active]; Osphena 60 mg Oral tab 0.5 tab Every other day [Active]; Tylenol Arthritis Pain 650 mg Oral TbER 2 tabs twice a day [Active]; Ventolin HFA 90 mcg/actuation Nebulizer HFAA 1 puff twice a day [Active]; vitamin E 400 unit Oral cap daily [Active]; clopidogrel oral oral [Active]; - PMHx: 22:10 Fibromyalgia; Hypertension; GERD; Carotid blockage; renal artery blockage; rr5 - Immunization history:: Adult Immunizations up to date. - Social history:: Smoking status: Patient/guardian denies using alcohol, street drugs, tobacco products. ROS: 22:30 Constitutional: Negative for body aches, chills, fever, poor PO intake. cp 22:30 Eyes: Negative for injury, pain, redness, and discharge. cp 22:30 ENT: Negative for drainage from ear(s), ear pain, sore throat, difficulty swallowing, difficulty handling secretions. 22:30 Cardiovascular: Positive for chest tightness, Negative for edema, palpitations. 22:30 Respiratory: Positive for shortness of breath, Negative for cough, wheezing. 22:30 Abdomen/GI: Positive for abdominal pain, Negative for vomiting, diarrhea, constipation. 22:30 Back: Positive for pain at rest, of the between scapula. 22:30 : Negative for urinary symptoms. 22:30 Skin: Negative for rash. 22:30 Neuro: Positive for headache, Negative for altered mental status, dizziness, syncope, weakness. 22:30 All other systems are negative. Exam: 22:33 ECG was reviewed by the Attending Physician. cp 22:40 Constitutional: The patient appears in no acute distress, alert, awake, cp non-diaphoretic, non-toxic, well developed, well nourished. 22:40 Head/Face: Normocephalic, atraumatic. cp 22:40 Eyes: Periorbital structures: appear normal, Pupils: equal, round, and reactive to cp light and accomodation, Extraocular movements: intact throughout, Conjunctiva: normal, no exudate, no injection, Sclera: no appreciated abnormality, Lids and lashes: appear normal, bilaterally. 22:40 ENT: External ear(s): are unremarkable, Nose: is normal, Mouth: Lips: moist, Oral cp mucosa: pink and intact, moist, Posterior pharynx: is normal, airway is patent, no erythema, no exudate. 22:40 Chest/axilla: Inspection: normal, Palpation: is normal, no crepitus, no tenderness. 22:40 Cardiovascular: Rate: normal, Rhythm: regular, Edema: is not appreciated, JVD: is not appreciated. 22:40 Respiratory: the patient does not display signs of respiratory distress, Respirations: normal, no use of accessory muscles, no retractions, labored breathing, is not present, Breath sounds: are clear throughout, no decreased breath sounds, no stridor, no wheezing. 22:40 Abdomen/GI: Inspection: abdomen appears normal, Bowel sounds: active, all quadrants, Palpation: soft, in all quadrants, moderate abdominal tenderness, in the right upper quadrant and left upper quadrant, rebound tenderness, is not appreciated, voluntary guarding, is elicited in the right upper quadrant and left upper quadrant. 22:40 Back: pain, that is mild, of the between scapula, ROM is normal, vertebral tenderness, is not appreciated. 22:40 Skin: no rash present. 22:40 Neuro: Orientation: to person, place \T\ time. Mentation: is normal, Cerebellar function: is grossly normal, Motor: moves all fours, strength is normal, Sensation: is normal. Vital Signs: 21:59 BP 223 / 78; Pulse 66; Resp 18; Temp 98; Pulse Ox 96% ; Weight 64.86 kg; Height 5 ft. 0 rr5 in. (152.40 cm); Pain 6/10; 23:17 BP 167 / 59 RA; Pulse 69; Resp 18; Pulse Ox 97% on R/A; mg2 23:17 BP 162 / 53 LA (auto/reg); Pulse 66; Resp 18; Pulse Ox 99% on R/A; mg2 12/08 00:53 BP 190 / 70; Pulse 62; Resp 18; Pulse Ox 98% on R/A; mg2 01:00 BP 200 / 67; Pulse 62; Resp 18; Pulse Ox 100% on R/A; mg2 02:05 BP 151 / 51; Pulse 50; Resp 18; Pulse Ox 99% on R/A; mg2 02:22 BP 142 / 51; Pulse 55; Resp 18; Temp 98; Pulse Ox 100% on R/A; mg2 12/07 21:59 Body Mass Index 27.93 (64.86 kg, 152.40 cm) rr5 MDM: 12/07 22:21 Patient medically screened. cp 23:00 Differential diagnosis: hypertensive crisis, Malignant HTN, aortic dissection. cp 12/08 00:50 Data reviewed: vital signs, nurses notes, lab test result(s), EKG, radiologic studies, cp CT scan, plain films, I have discussed the patient's presentation/case with the attending Emergency Department Physician; and as a result, I will admit patient. Physician consultation: Feliciano Diallo MD was called at 00:51, left message on voicemail. 12/07 22:19 Order name: Basic Metabolic Panel; Complete Time: 23:50 mg2 12/07 23:56 Interpretation: Normal except: CL 109; BUN 23; GFR 80. cp 12/07 22:19 Order name: CBC with Diff; Complete Time: 23:50 mg2 12/07 22:19 Order name: LFT's; Complete Time: 23:50 mg2 12/07 22:19 Order name: Magnesium; Complete Time: 23:50 mg2 12/07 22:19 Order name: NT PRO-BNP; Complete Time: 23:50 mg2 12/07 22:19 Order name: PT-INR; Complete Time: 23:50 mg2 12/07 22:19 Order name: Troponin (emerg Dept Use Only); Complete Time: 23:50 mg2 12/07 22:58 Order name: Urine Dipstick--Ancillary (enter results); Complete Time: 23:50 ar5 12/08 01:49 Order name: Basic Metabolic Panel EDMS 12/08 01:49 Order name: Basic Metabolic Panel EDMS 12/08 01:49 Order name: CBC with Automated Diff EDMS 12/08 01:49 Order name: CBC with Automated Diff EDMS 12/08 01:49 Order name: Troponin I EDMS 12/08 01:49 Order name: Troponin I EDMS 12/07 22:19 Order name: XRAY Chest (1 view); Complete Time: 23:50 mg2 12/07 22:19 Order name: EKG; Complete Time: 22:20 mg2 12/07 22:19 Order name: Cardiac monitoring; Complete Time: 22:34 mg2 12/07 22:19 Order name: EKG - Nurse/Tech; Complete Time: 22:34 mg2 12/07 22:37 Order name: CT Aorta for Dissection cp 12/08 01:49 Order name: EKG Electrocardiogram EDMS 12/08 01:49 Order name: EKG Electrocardiogram EDMS 12/08 01:49 Order name: EKG Electrocardiogram EDMS 12/08 01:49 Order name: EKG Electrocardiogram EDMS 12/08 01:49 Order name: EKG Electrocardiogram EDMS 12/08 01:49 Order name: Troponin I EDMS 12/07 22:19 Order name: IV Saline Lock; Complete Time: 22:34 mg2 12/07 22:19 Order name: Labs collected and sent; Complete Time: 22:34 mg2 12/07 22:19 Order name: O2 Per Protocol; Complete Time: 22:35 mg2 12/07 22:19 Order name: O2 Sat Monitoring; Complete Time: 22:35 mg2 12/07 22:36 Order name: Blood Pressure Recheck: bilateral upper extremity; Complete Time: 22:48 cp 12/07 22:36 Order name: Urine Dipstick-Ancillary (obtain specimen); Complete Time: 22:39 cp EC/07 22:33 Rate is 57 beats/min. Rhythm is regular. ID interval is prolonged at 226 msec. QRS cp interval is normal. QT interval is normal. Interpreted by me. Reviewed by me. Administered Medications: 22:47 Drug: hydrALAZINE 10 mg Route: IV; Rate: calculated rate; Site: right antecubital; mg2 12/08 00:04 Follow up: Response: No adverse reaction; Blood pressure is lowered; IV Status: mg2 Completed infusion 01:02 Drug: Aspirin Chewable Tablet 243 mg Route: PO; mg2 01:53 Follow up: Response: No adverse reaction mg2 01:03 Drug: morphine 4 mg Route: IVP; Site: right antecubital; mg2 01:53 Follow up: Response: No adverse reaction mg2 01:23 Drug: hydrALAZINE 10 mg Route: IV; Rate: calculated rate; Site: right antecubital; mg2 01:51 Follow up: Response: No adverse reaction; IV Status: Completed infusion mg2 01:50 Drug: Zofran (Ondansetron) 4 mg Route: IVP; Site: right antecubital; mg2 Disposition: 02:44 Co-signature as Attending Physician, Ra Schroeder MD. rn Disposition: 12/09/19 01:04 Hospitalization ordered by Feliciano Diallo for Observation. Preliminary diagnosis are Chest pain, unspecified, Unspecified abdominal pain, Hypertensive heart disease. - Bed requested for Telemetry/MedSurg (observation). - Status is Observation. mg2 - Condition is Stable. - Problem is new. - Symptoms have improved. Signatures: Dispatcher [employer] EDHarper Garcia RN RN dw Nieto, Roman, MD MD rn Page, Corey, PA PA cp Gardose, Michele, RN RN mg2 Angelo Vazquez RN RN rr5 Corrections: (The following items were deleted from the chart) 12/07 22:40 22:10 PSHx: Angioplasty; rr5 rr5 12/08 02:14 01:04 Hospitalization Ordered by Feliciano Diallo MD for Observation. Preliminary diagnosis dw is Chest pain, unspecified; Unspecified abdominal pain; Hypertensive heart disease. Bed requested for Telemetry/MedSurg (observation). Status is Observation. Condition is Stable. Problem is new. Symptoms have improved. cp 02:35 02:14 12/09/2019 01:04 Hospitalization Ordered by Feliciano Diallo MD for Observation. mg2 Preliminary diagnosis is Chest pain, unspecified; Unspecified abdominal pain; Hypertensive heart disease. Bed requested for Telemetry/MedSurg (observation). Status is Observation. Condition is Stable. Problem is new. Symptoms have improved. dw
[2019-12-09] MEDS ORDERED: HYDRALAZINE HCL 20 MG/ML VIAL ONE (01:27)
[2019-12-09] MEDS ORDERED: ACETAMINOPHEN 500 MG TAB PO PRN (01:45)
[2019-12-09] MEDS ORDERED: ONDANSETRON 4 MG/2 ML VIAL IV PRN (01:45)
[2019-12-09] MEDS ORDERED: MORPHINE 4 MG/ML SYR IV PRN (01:45)
[2019-12-09] MEDS ORDERED: ONDANSETRON 4 MG/2 ML VIAL ONE (01:51)
[2019-12-09 04:23] VITALS: BMI 28.0
[2019-12-09] MEDS: cloNIDine HCL 0.1 MG TAB PO PRN ×2 (08:25→11:30)
[2019-12-09] MEDS ORDERED: ASPIRIN EC 81 MG TAB PO SCH (09:00)
[2019-12-09] MEDS ORDERED: ALBUTEROL SULFATE IH PRN (09:02)
[2019-12-09] MEDS ORDERED: BETAMETHASONE DIPROPIONATE 0.05% TOP PRN (09:02)
[2019-12-09 09:14] VITALS: O2SAT 94
[2019-12-09] MEDS ORDERED: [UNRECOGNIZED DRUG - OTHER] PO SCH (09:15)
--- NOTE | 2019-12-09 10:18 | P.HP ---
Certification for Inpatient Patient admitted to: Observation With expected LOS: <2 Midnights Practitioner: I am a practitioner with admitting privileges, knowledge of patient current condition, hospital course, and medical plan of care. Services: Services provided to patient in accordance with Admission requirements found in Title 42 Section 412.3 of the Code of Federal Regulations Patient History Date of Service: 12/09/19 Reason for admission: UNCONTROLLED BP. History of Present Illness: MS. FRENCH HAS BILATERAL RENAL ARTERY STENOSIS. SHE WENT THROUGH ONE SIDE STENT AND PLAN WAS TO SEE IF SHE IS CONTROLLED WITH IT. UNFORTUNATELY HER BP ONCE AGAIN WENT TO 220 SYSTOLIC. SHE IS IN [facility] NOW. SHE IS STABLE AND HAS NO CHEST PAIN. SHE NEEDED CLONIDINE TO REDUCE BP. I TALKED TO DR. FERREIRA AND HE SAID HE WILL DO STENT NEXT WEEK. Allergies levofloxacin [From Levaquin] Allergy (Unknown, Verified 12/09/19 03:21) unknown Home Medications: carvediloL [Coreg*] 12.5 mg PO BID 03/26/17 Acetaminophen [Tylenol Arthritis] 2 tab PO BEDTIME 10/04/19 Atorvastatin Calcium 1 tab PO BEDTIME 10/04/19 Famotidine 1 tab PO BID 10/04/19 Melatonin 0.5 mg PO BEDTIME 10/04/19 Albuterol Sulfate [Ventolin Hfa] 1 spray IH BIDP PRN 12/09/19 Aspirin Chewable [Aspirin Chewable*] 1 tab PO DAILY 12/09/19 Betameth Dip 0.05% [Diprosone 0.05% OINTMENT*] 1 florina TOP BIDP PRN 12/09/19 Cetirizine HCl 1 tab PO DAILY 12/09/19 Clopidogrel Bisulfate [Plavix*] 1 tab PO DAILY 12/09/19 Losartan/Hydrochlorothiazide [Losartan-Hctz 100-25 mg Tab] 1 tab PO DAILY 12/09/19 Ospemifene [Osphena] 30 mg PO SEECOM 12/09/19 Polyethylene Glycol 3350 [Clearlax] 1 packet PO DAILY 12/09/19 Sertraline [Zoloft*] 25 mg PO DAILY 12/09/19 Vitamin E 1 tab PO DAILY 12/09/19 - Past Medical/Surgical History Has patient received pneumonia vaccine in the past: Yes Diabetic: No -: HTN -: Fibromyalgia -: carotid blockage -: COPD -: renal artery blockage -: osteoarthritis -: Tonsillectomy -: Appendectomy -: Tubal ligation -: Total knee replacement, Right -: renal artery stent - Family History Father -: Heart disease, Hypertension, Lung disease, Cancer Notes: prostate CA, rectal CA Mother -: Liver disease Notes: liver cirrhosis - Social History Smoking Status: Former smoker Alcohol use: No CD- Drugs: No Caffeine use: Yes Place of Residence: Home Review of Systems 10-point ROS is otherwise unremarkable Physical Examination - Vital Signs Temperature: 96.9 F Blood Pressure: 159/68 Pulse: 72 Respirations: 16 Pulse Ox (%): 98 - Physical Exam General: Alert, In no apparent distress HEENT: Atraumatic, PERRLA, Mucous membr. moist/pink, EOMI, Sclerae nonicteric Neck: Supple, 2+ carotid pulse no bruit, No LAD, Without JVD or thyroid abnormality Respiratory: Clear to auscultation bilaterally, Normal air movement Cardiovascular: Regular rate/rhythm, Normal S1 S2 Gastrointestinal: Normal bowel sounds, No tenderness Musculoskeletal: No tenderness Integumentary: No rashes Neurological: Normal gait, Normal speech, Normal strength at 5/5 x4 extr, Normal tone, Normal affect Lymphatics: No axilla or inguinal lymphadenopathy - Studies Laboratory Data (last 24 hrs) 12/08/19 22:30: PT 11.2, INR 0.95 12/08/19 22:30: WBC 5.8, Hgb 11.2 L, Hct 34.0 L, Plt Count 169 12/08/19 22:30: Sodium 143, Potassium 4.0, BUN 23 H, Creatinine 0.72, Glucose 100, Magnesium 2.2, Total Bilirubin 0.3, AST 13 L, ALT 19, Alkaline Phosphatase 83 Assessment and Plan - Problems (Diagnosis) (1) Malignant essential hypertension Current Visit: Yes Status: Acute Plan: TALKED TO DR. FERREIRA. PLAN ABOVE. FOR NOW CLONIDINE PRN. (2) Bilateral renal artery stenosis Current Visit: Yes Status: Chronic Plan: ABOVE. THIS IS 23 HOUR SUMMARY. SHE MAY GO HOME TODAY. - Advance Directives Does patient have a Living Will: Yes Does patient have a Durable POA for Healthcare: Yes
--- NOTE | 2019-12-09 10:35 | EKG ---
Test Date: 2019-12-08 Test Time: 22:25:27 Metal Leaf Layer: RR MEASUREMENT RESULTS: Intervals: Rate: 57 IN: 226 QRSD: 84 QT: 420 QTc: 408 Anderson: P: 43 IN: 226 QRS: 54 T: 54 INTERPRETIVE STATEMENTS: Sinus bradycardia with 1st degree AV block Otherwise normal ECG Compared to ECG 10/05/2019 08:25:12 Myocardial infarct finding no longer present Electronically Signed On 12-09-19 10:34:41 CDT by Peter Monahan
[2019-12-09 12:46] VITALS: TEMP 97.6
[2019-12-09 13:09] VITALS: BP 140/70
--- NOTE | 2019-12-09 16:12 | RAD REPORT ---
EXAM DESCRIPTION: CT Angiography Chest, Abdomen and Pelvis With Intravenous Contrast CLINICAL HISTORY: The patient is 68 years old and is Female; abdominal pain, back pain;SOB TECHNIQUE: Axial computed tomographic angiography images of the chest, abdomen and pelvis with intra venous contrast. Sagittal and coronal reformatted images were created and reviewed. This CT exam was performed using one or more of the following dose reduction techniques: automated exposure cont rol, adjustment of the mA and/or kV according to patient size, and/or use of iterative reconstruction technique. MIP reconstructed images were created and reviewed. COMPARISON: No relevant prior studies available. FINDINGS: ARTIFACTS: The exam is suboptimal secondary to motion artifact. VASCULATURE: AORTA: Atherosclerosis of the aorta is present. No aortic aneurysm. No dissection. PULMONARY ARTERIES: Unremarkable as visualized. No pulmonary embolism is identified. GREAT VESSELS OF AORTIC ARCH: No acute findings. No dissection. No arterial occlusion or sig nificant stenosis. CELIAC TRUNK AND MESENTERIC ARTERIES: Focal significant narrowing at the level of the celiac axis to approximately 3 mm for length of approximately 7 mm is present. The celiac axis beyond this point is widely patent. RENAL ARTERIES: Stent at the level of the right renal artery is present. No occlusion or signi ficant stenosis. ILIAC ARTERIES: No acute findings. No occlusion or significant stenosis. CHEST: LUNGS: The lungs are hyperinflated with bilateral centrilobular emphysematous change. PLEURAL SPACE: Unremarkable. No significant effusion. No pneumothorax. HEART: Unremarkable. No cardiomegaly. No significant pericardial effusion. THYROID: A heterogeneous 0.8 cm nodule within the right lobe of the thyroid is present. ABDOMEN: LIVER: Unremarkable. No mass. GALLBLADDER AND BILE DUCTS: The gallbladder is contracted. No calcified stones. No ductal di lation. PANCREAS: Unremarkable. No ductal dilation. No mass. SPLEEN: Unremarkable. No splenomegaly. ADRENALS: Unremarkable. No mass. KIDNEYS AND URETERS: Unremarkable. No hydronephrosis. No solid mass. STOMACH AND BOWEL: The stomach is decompressed. The small bowel is normal in caliber. A moderate amount of stool is present throughout colon. There is no mucosal thickening or evidence of bowel obst ruction. A 2 cm right ovarian cyst is present. The uterus and left ovary are normal. PELVIS: APPENDIX: No findings to suggest acute appendicitis. BLADDER: The bladder is well distended. REPRODUCTIVE: Unremarkable as visualized. CHEST, ABDOMEN and PELVIS: INTRAPERITONEAL SPACE: Trace free fluid is present within the pelvis which is likely physiologic . No free air. BONES/JOINTS: Minimal multilevel degenerative change of the spine is present. No acute fractur e. No dislocation. SOFT TISSUES: Unremarkable. LYMPH NODES: Calcified mediastinal and left hilar lymph nodes are present. IMPRESSION: 1. No evidence of aortic aneurysm or dissection. 2. Focal area of significant narrowing at the level of the celiac axis as described. 3. Right thyroid nodule. No follow-up imaging is recommended. 4. Right ovarian cyst. No follow-up imaging is recommended. Electronically signed by: Araceli Patricio MD 12/09/2019 12:18 AM CDT Workstati Due to temporary technical issues with the PACS/Fluency reporting system, reports are being signed by the in house radiologist as a courtesy to ensure prompt reporting. The interpreting radiologist is f ully responsible for the content of the report.
[2019-12-09] MEDS ORDERED: MELATONIN 0.5 MG PO SCH (21:00)
[2019-12-09] MEDS ORDERED: FAMOTIDINE PO SCH (21:00)
[2019-12-09] MEDS ORDERED: ATORVASTATIN CALCIUM PO SCH (21:00)
[2019-12-09] MEDS ORDERED: CARVEDILOL 12.5 MG PO SCH (21:00)
[2019-12-09] MEDS ORDERED: ACETAMINOPHEN PO SCH (21:00)
--- NOTE | 2019-12-10 05:37 | CON ---
Date of Consultation: 12/09/2019 I saw the patient on 12/09/2019. Reason For Consultation: Hypertension, chest pain, renal artery stenosis, cerebrovascular disease. History Of Present Illness: Ms. Roberson is a 68-year-old woman, who is very well known to me from previ ous office visits and admissions. She has known bilateral renal artery stenosis with severe uncontro lled hypertension. Approximately a month ago, she underwent a right renal stent successfully. When I saw her in the office after that, her blood pressure was well controlled. We had plan to do the le ft renal artery stent in a staged manner. She came into the emergency room with chest pain, hyperten manuel, abdominal pain, shortness of breath, back pain. During her initial admissions, she had had an abdominal angiogram showing her bilateral renal artery stenosis, but she also had what appeared to be a ligament around her celiac artery trunk. No intervention was done at that time. From a chest serena n standpoint, she has had a normal echo and a normal stress test in my office. She does have known c erebrovascular disease that is not that severe at this point, but we will continue to watch that. He r chest pain was in the upper chest area that radiated to the back. Her EKG, chest x-ray, and blood work have ruled her out for an NM. Her blood pressure is better controlled now. Past Medical History: As stated above. Allergies: LEVAQUIN. Review of Systems: Negative. Social History: Negative. Family History: Negative. Medications At Home: Aspirin, amlodipine, Lipitor, Coreg, Pepcid, losartan, Ventolin inhalers, and P lavix. Physical Examination: General: When I saw her, her pressure was down to 140/70. She was in sinus rhythm. Her O2 saturati on on room air was 94%. HEENT: Negative. Neck: Supple without any bruit, lymphadenopathy, JVD, or thyromegaly. Chest: Clear to auscultation and percussion. Cardiac: Regular rhythm and rate. No murmurs, gallops, or rubs. Abdomen: Benign. Extremities: No clubbing, cyanosis, or edema. Diagnostic Data: All within normal limits except for slightly elevated BNP at 286. Impression And Plan: Hypertension, labile. We will plan to do her left renal stent in the next week or 2 as an outpatient. The case was discussed with Dr. Diallo. She can certainly go home from our [facility]. Her CVD is stable. She has gastroesophageal reflux disease and fibromyalgia that are wel l controlled. 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 We will readdres s that if she continued to have any abdominal pain. Regarding her chest pain, I am not worried about coronary artery disease. She has had a negative stress test in the past. Ms. Roberson does realize oscar t she needs her left renal artery done and I will schedule that next week or the week after. EDUARDO/AUREA Voice ID: [id number] Report ID: [id number]
[2019-12-10] MEDS ORDERED: HOME MED 1 EA UNK (Losartan/Hydrochlorothiazide [Losartan-Hctz 100-25 Mg Tab] 1 TAB) PO SCH (09:00)
[2019-12-10] MEDS ORDERED: HOME MED 1 EA UNK (Aspirin Chewable [Aspirin Chewable*] 1 TAB) PO SCH (09:00)
[2019-12-10] MEDS ORDERED: SERTRALINE 25 MG PO SCH (09:00)
[2019-12-10] MEDS ORDERED: CLOPIDOGREL BISULFATE PO SCH (09:00)
[2019-12-10] MEDS ORDERED: VITAMIN E PO SCH (09:00)
[2019-12-10] MEDS ORDERED: HOME MED 1 EA UNK (Cetirizine Hcl [Cetirizine Hcl] 1 TAB) PO SCH (09:00)
[2019-12-10] MEDS ORDERED: POLYETHYLENE GLYCOL PO SCH (09:00)
== END 2019-12-09 13:01 | disposition home or self-care (01) ==
LOC: ER 21:28 → 2ND 12-09 02:28
PROVIDERS: ADMIT Internal Medicine; ATTEND Internal Medicine
DX: I10 Essential (primary) hypertension (principal); I70.1 Atherosclerosis of renal artery; R07.9 Chest pain, unspecified; R10.9 Unspecified abdominal pain; R06.02 Shortness of breath; M54.9 Dorsalgia, unspecified; I65.29 Occlusion and stenosis of unspecified carotid artery; M79.7 Fibromyalgia; K21.9 Gastro-esophageal reflux disease without esophagitis; J44.9 Chronic obstructive pulmonary disease, unspecified; M19.90 Unspecified osteoarthritis, unspecified site; Z79.82 Long term (current) use of aspirin; Z79.02 Long term (current) use of antithrombotics/antiplatelets; Z88.3 Allergy status to other anti-infective agents; Z87.891 Personal history of nicotine dependence; Z82.49 Family history of ischemic heart disease and other diseases of the circulatory system; Z80.42 Family history of malignant neoplasm of prostate; Z80.0 Family history of malignant neoplasm of digestive organs
CPT/HCPCS: 96365; 93005; 85025; 80048; 36415; 83735; 85610; 80076; 81003; 84484 ×3; 83880; 71275; 74175; 71045; 96375; 99285; 96366; Q9967; J0360 ×2; J2405; G0378 ×2

== ENCOUNTER 2019-12-15 13:03 | Inpatient (IN) | payer OTHER, MEDICARE ==
[~2019-12-15 13:03] MED LIST: NA CHLORIDE 0.9% 500 ML ONE
--- OUTSIDE RECORDS SUMMARY | 2019-12-15 13:06 | XMS REPORT | Clinical Summary ---
:1950 Author Organization [facility] Address [address] [place] [address] Care Team Providers Name Role Phone MD [...] Added automatically from request for erika franco [id number] Lumbar spondylosis 05/26/2016 Encounters Date Type Specialty Care Team Description 02/22/2019 Office Visit Orthopedic Surgery Sloan Ro, Pres ence of right artificial knee joint (Primary Dx) 01/10/2019 Office Visit Orthopedic Surgery Sloan Ro, Pres ence of right artificial knee joint (Primary Dx) 12/23/2018 Telephone Orthopedic Surgery Sloan Ro, Pres ence of right MD artificial knee joint (Primary Dx) after 2018 Family History Medical History Relation Name Comments [...] INFLUENZA VACCINE 03/03/2020 Implants Implanted Type Area Chart Clerk Device Shelf Model / Identifier Expiration Serial / Lot Date Biomet Cc Cruciate Tray 67mm - [id number] IMPLANT Right: [employer] 08/25/2028 [id number] / Implanted: Qty: 1 on 10/20/2018 by Sloan Ro M D at [facility] DEVICES Knee / [id number] Van Ps Open Intl Fem-Rt 60 - [id number] [id number] IMPLANT Right: [employer] 09/28/2027 [id number] / Implanted: Qty: 1 on 10/20/2018 by Sloan Ro M D at [facility] DEVICES Knee / [id number] Patella, Series A Asymmetric Pat 31x8 ,Ea - [id number] IPM IMPL ANT Right: [employer] 08/20/2023 [id number] / Implanted: Qty: 1 on 10/20/2018 by Sloan Ro M D at [facility] DEVICES Knee / [id number] Vangrd Ps Tib Brg 10x63/67 - [id number] IPM IMPLANT Right: [employer] 11/11/2022 [id number] / Implanted: Qty: 1 on 10/20/2018 by Sloan Ro M D at [facility] DEVICES Knee / [id number] Cement Bone Biomet R 40g - [id number] Surgical Right: [employer] 05/02/2022 [id number] / Implanted: Qty: 2 on 10/20/2018 by Sloan Ro M D at [facility] Bone Cement Knee / [id number] Results Not on fileafter 2018 Insurance Payer Benefit Plan / Subscriber ID Effective Dates Phone Addre ss Type Group MEDICARE MEDICARE PART A xxxxxxxxxxx 2014-Present [place], [place] Medicare AND B AARP AARP SUPPLEMENT xxxxxxxxxxx 2016-Presen Commercial t Advance Directives For more information, please contact: [phone] Type Date Recorded Patient Sales Assistant Institutional Sales Explanati on Advance Directives, Living Will 10/14/2018 7:09 AM and Medical Power of Machine Pan Greaser
[2019-12-15] MEDS ORDERED: HEPARIN 5000 UNIT/ML 1 ML VIAL ONE ×3 (15:52→16:14)
[2019-12-15] MEDS ORDERED: HEPA 1000U/500MLS 2,000 UNIT/1,000 ML BAG IV ONE (15:52)
[2019-12-15] MEDS ORDERED: MIDAZOLAM HCL 2 MG/2 ML INJ ONE ×2 (15:53→16:35)
[2019-12-15] MEDS ORDERED: ATROPINE SULF 1 MG/10 ML SYR IV ONE (15:53)
[2019-12-15] MEDS ORDERED: FENTANYL CITR 100 MCG/2 ML ONE ×3 (15:53→19:00)
[2019-12-15] MEDS ORDERED: NICARDIPINE HCL 25 MG/10 ML IV ONE (16:07)
[2019-12-15] MEDS ORDERED: HYDRALAZINE HCL 20 MG/ML VIAL ONE ×2 (16:16→16:39)
[2019-12-15] MEDS ORDERED: CLOPIDOGREL 75 MG TABLET ONE (16:59)
[2019-12-15] MEDS ORDERED: ACETAMINOPHEN 325 MG TABLET PO ONE (18:26)
[2019-12-15] MEDS ORDERED: cloNIDine HCL 0.1 MG TAB PO ONE ×2 (18:50→19:20)
[2019-12-15] MEDS ORDERED: cloNIDine HCL 0.1 MG TAB ONE ×2 (18:55→19:31)
[2019-12-15] MEDS ORDERED: AMLODIPINE 10 MG TAB ONE (19:44)
[2019-12-15] MEDS ORDERED: FUROSEMIDE 20 MG/ 2ML VIAL ONE (20:40)
[2019-12-15] MEDS ORDERED: NITROGLYCERIN 0.4 MG/TAB SL PRN (22:42)
--- NOTE | 2019-12-15 23:23 | OP ---
Date of Procedure: 12/15/2019 Surgeon: LAMONT SYED Communication Studies Professor: Dr. Lamont Syed. Name Of Procedures: 1.Selective left renal angiogram. 2.Percutaneous coronary intervention of severe ostial left renal stenosis 95% using a 5.0 x 12 mm He rculink Elite Biliary stent, lesion length is 10 mm. AMRITA-3 flow before and after the procedure and 0% residual stenosis post percutaneous coronary intervention .. Indication: Severe left renal stenosis with severe uncontrolled hypertension. Director Of Individual Giving: Peter Monahan M.D. Indications: Access right radial artery, 6-Kazakh that was aborted due to spasm and closed with TR b and. The second access is right femoral artery 6-Kazakh closed with a 6-Kazakh Angio-Seal with good hemostasis. Description Of The Procedure: The patient was brought into the cardiac catheterization laboratory, p repped and draped in the usual sterile fashion and attempt to use right radial artery filled due to v asospasm and we prepped the right groin under the ultrasound guidance and fluoroscopy, right femoral artery was accessed. 6-Kazakh pinnacle sheath was placed. Then, we used a 6-Kazakh CASSY guide over t he J-wire into the abdominal aorta, selectively engaged the left renal artery and we took standard vi ews and then we passed a short run-through wire across the stenosis and then we took a 5 mm x 12 mm H erculink Elite stent and this was then deployed successfully with 0% residual stenosis post PCI AMRITA- 3 flow and no complications. Wires and guides were removed out of the body and then removed the flores th, we closed the access with a 6-Kazakh Angio-Seal. No complications. Impression: Severe left renal artery stenosis with severe uncontrolled hypertension. Recommendation: 1.Aspirin and Plavix and statin. 2.Discharge home once discharge criteria are met. SR/MODL Voice ID: [id number] Report ID: [id number]
[2019-12-16] MEDS: ACETAMINOPHEN 325 MG TABLET PO PRN ×2 (04:39→08:08)
[2019-12-16 04:55] LABS: Absolute Lymphocytes (CBC) 1.6 K/uL (0.7-4.9); Basophils % 1.3 % (0-1.3); Hematocrit 34.6 % (36.0-45.0); Lymphocytes % 24.4 % (15.3-44.8); MPV 8.8 fL (7.6-11.3); RBC Red Blood Cell Count 4.04 M/uL (3.86-4.86)
[2019-12-16 05:09] LABS: Potassium 3.4 mmol/L (3.5-5.1)
[2019-12-16 05:43] VITALS: BMI 27.6
[2019-12-16] MEDS ORDERED: carvediloL 25 MG TAB PO SCH (06:00)
[2019-12-16 08:14] VITALS: TEMP 97.4
[2019-12-16 08:22] VITALS: O2SAT 98
[2019-12-16] MEDS ORDERED: AMLODIPINE 10 MG TAB PO SCH ×2 (09:00)
[2019-12-16] MEDS ORDERED: LOSARTAN/HCTZ 50-12.5 PO SCH (09:00)
[2019-12-16 09:17] VITALS: BP 141/58
--- NOTE | 2019-12-17 21:12 | PN ---
Date of Progress Note: 12/16/2019 Ms. Roberson was admitted as an outpatient initially on 12/15/2019 for an outpatient left renal stent. I am seeing the patient on 12/16/2019. After the procedure, Ms. Roberson had severe hypertension in the 1 90 to 210 systolic. She was having shortness of breath. She was anxious. It was difficult to send her home in those conditions. She has received IV hydralazine, clonidine, and Norvasc and finally, h er blood pressure subsided, but she was admitted overnight for observation. This morning, patient is asymptomatic. Her right groin is intact. Her vital signs are stable. She is afebrile. She is in a sinus rhythm. Her blood pressure is 130/78. She will go home on beta-blockers, Hyzaar, Norvasc. She has now both of her renal artery stented and hopefully, that will help her blood pressure subside . I will see Ms. Roberson in the office in the next week or 2. Case was discussed with Dr. Diallo. EDUARDO/AUREA Voice ID: [id number] Report ID: [id number]
== END 2019-12-16 09:20 | disposition home or self-care (01) | DRG 675 ==
LOC: CCL 13:03 → 3RD-ICU 18:30
PROVIDERS: ATTEND Internal Medicine
PROC: 047K3DZ Dilation of Right Femoral Artery with Intraluminal Device, Percutaneous Approach (ICD-10-PCS; principal; 2019-12-15)
PROC: B4171ZZ Fluoroscopy of Left Renal Artery using Low Osmolar Contrast (ICD-10-PCS; 2019-12-15)
DX: I70.1 Atherosclerosis of renal artery (principal); I10 Essential (primary) hypertension; E78.5 Hyperlipidemia, unspecified; J44.9 Chronic obstructive pulmonary disease, unspecified; K21.9 Gastro-esophageal reflux disease without esophagitis; M19.90 Unspecified osteoarthritis, unspecified site; F17.210 Nicotine dependence, cigarettes, uncomplicated; F41.9 Anxiety disorder, unspecified
CPT/HCPCS: 36252; 36415; 37236; 80048; 85025; 85347; C1725; C1760; C1887; C1893; J0360; J1644; J1940; J2250; J3010; J7040

== ENCOUNTER 2020-10-28 10:53 | Observation (INO) | payer OTHER, MEDICARE ==
--- OUTSIDE RECORDS SUMMARY | 2020-10-28 10:56 | XMS REPORT | Continuity of Care Document ---
:1950 Author Organization [facility] t Address [address] [place] [address] Care Team Providers Name Role Phone Rocio Hinkle MD Attending Clinician Doctor Unassigned, Name Attending Clinician Unavailable GERMÁN Attending Clinician Unavailable ELIOT Attending Clinician Unavailable Problems This patient has no known problems. Allergies, Adverse Reactions, Alerts This patient has no known allergies or adverse reactions. Medications This patient has no known medications. Procedures This patient has no known procedures. Encounters Start End Encounter Admission Attending Care Care Encounter Source Date/Time Date/Time Type Type Clinicians Facility Department ID 2020-07-24 2020-07-24 [facility] [id number] 12:42:07 23:59:00 Encounter [facility] [id number] [place] [id number] [place] [id number] 2020-07-24 2020-07-24 Orders Doctor MARLEY [id number] 00:00:00 00:00:00 Only [place]assigned[place] [id number] [place] [facility] [id number] 2020-02-09 2020-02-09 Outpatient YANELY DUNLAP [facility] [id number] [place] 00:00:00 00:00:[address] 2020-02-01 2020-02-01 Outpatient DUNLAP YANELY [facility] [id number] [place] 00:00:00 00:00:[address] 2020-01-23 2020-01-23 [id number] [place] 00:00:00 00:00:00 AURELIANO [address] 2020-01-23 2020-01-23 Outpatient [facility] [id number] [place] 00:00:00 00:00:00 AURELIANO [address] Results This patient has no known results.
[2020-10-28 11:26] LABS: Absolute Lymphocytes (CBC) 1.5 K/uL (0.7-4.9); Basophils % 1.8 % (0-1.3); Hematocrit 32.1 % (36.0-45.0); Lymphocytes % 27.1 % (15.3-44.8)
[2020-10-28 11:28] LABS: Protime INR 0.96
--- NOTE | 2020-10-28 11:35 | RAD REPORT ---
EXAM DESCRIPTION: CT - Head Brain Wo Cont - 10/28/2020 11:22 am CLINICAL HISTORY: Syncope COMPARISON: 2016 TECHNIQUE: Computed axial tomography of the head was obtained. IV contrast was not requested. All CT scans are performed using dose optimization technique as appropriate and may include automated exposure control or mA/KV adjustment according to patient size. FINDINGS: An intracranial bleed is not seen . The ventricles are normal in caliber. No extra-axial fluid collection is noted. Fluid within the sinuses/ mastoids is not seen. Chronic sinusitis is present IMPRESSION: No acute intracranial abnormality is seen. If patient's symptoms persist MRI of the bra in would be recommended.
[2020-10-28 11:46] LABS: BUN Blood Urea Nitrogen 23 mg/dL (7-18); Bicarbonate 25 mmol/L (21-32); Glucose Level 116 mg/dL (74-106); Magnesium 2.1 mg/dL (1.8-2.4); Potassium 4.5 mmol/L (3.5-5.1); Sodium Level 142 mmol/L (136-145); Troponin (Emerg Dept Use Only) < 0.02 ng/mL (0.0-0.045)
--- NOTE | 2020-10-28 12:09 | EDPHYS ---
Physician Documentation [facility] Name: Mary Roberson Age: 69 yrs Sex: Female : 1950 Arrival Date: 10/28/2020 Time: 10:59 Bed 6 Private MD: ED Physician Ra Schroeder HPI: 10/28 11:50 This 69 yrs old Female presents to ER via EMS with complaints of Syncope. rn 11:50 The patient has experienced syncope, lost consciousness. Onset: The symptoms/episode rn began/occurred just prior to arrival. Duration: The patient has had multiple episodes, that last 1 minute(s). Associated injury: The patient did not suffer any apparent associated injury. Associated signs and symptoms: Pertinent positives: dizziness, headache, Pertinent negatives: abdominal pain, chest pain, combativeness, confusion, diaphoresis, diarrhea. Current symptoms: Currently, the patient is not experiencing any symptoms. The patient has experienced similar episodes in the past. The patient has not recently seen a physician. Reports 2 episodes today of passing out, was seated both times, reports lasted approx 1 minute, assoc with dizziness. There is a period of time she was not aware of what happened on the first episode, thinks she remembers during second episode but not sure. No chest pain/sob/cough/abd pain. . Historical: - Allergies: 11:05 Levaquin; ca1 - PMHx: 11:05 Carotid blockage; Fibromyalgia; GERD; Hypertension; renal artery blockage; ca1 - PSHx: 11:05 renal Stents; ca1 - Immunization history:: Adult Immunizations up to date. - Social history:: Smoking status: Patient denies any tobacco usage or history of. - Family history:: not pertinent. - Hospitalizations: : No recent hospitalization is reported. ROS: 11:50 Constitutional: Negative for fever, chills, and weight loss, Eyes: Negative for injury, rn pain, redness, and discharge, Neck: Negative for injury, pain, and swelling, Cardiovascular: Negative for chest pain, palpitations, and edema, Respiratory: Negative for shortness of breath, cough, wheezing, and pleuritic chest pain, Abdomen/GI: Negative for abdominal pain, nausea, vomiting, diarrhea, and constipation, Back: Negative for injury and pain, : Negative for injury, bleeding, discharge, and swelling, MS/Extremity: Negative for injury and deformity, Skin: Negative for injury, rash, and discoloration, Neuro: Negative for weakness, numbness, tingling, and seizure. Exam: 11:50 Constitutional: This is a well developed, well nourished patient who is awake, alert, rn and in no acute distress. Head/Face: Normocephalic, atraumatic. Eyes: Pupils equal round and reactive to light, extra-ocular motions intact. Periorbital areas with no swelling, redness, or edema. Cardiovascular: Regular rate and rhythm. No pulse deficits. Respiratory: No increased work of breathing, no retractions or nasal flaring. Abdomen/GI: soft, non-tender Skin: Warm, dry, no cyanosis MS/ Extremity: Pulses equal, no cyanosis. Neurovascular intact. Full, normal range of motion. Equal circumference. Neuro: Awake and alert, GCS 15, oriented to person, place, time, and situation. Cranial nerves II-XII grossly intact. Motor strength 5/5 in all extremities. Sensory grossly intact. Cerebellar exam normal. 12:04 ECG was reviewed by the Attending Physician. rn Vital Signs: 11:00 BP 165 / 78; Pulse 60; Resp 16 S; Temp 98(O); Pulse Ox 99% on R/A; ca1 12:00 BP 158 / 57; Pulse 61; Resp 18 S; Pulse Ox 99% on R/A; ca1 13:00 BP 157 / 65; Pulse 59; Resp 16 S; Pulse Ox 99% on R/A; ca1 14:00 BP 150 / 64; Pulse 66; Resp 17; Pulse Ox 100% on R/A; hb 15:00 BP 148 / 68; Pulse 62; Resp 15; Pulse Ox 99% on R/A; hb 16:00 BP 144 / 56; Pulse 64; Resp 15; Pulse Ox 99% on R/A; hb NIH Stroke Scale Scores: 11:00 NIHSS Score: 0 ca1 MDM: 11:00 Patient medically screened. rn 12:06 Differential Diagnosis: cardiac arrhythmia, cerebrovascular accident, idiopathic rn syncope, seizure, transient ischemic attack, vasovagal episode. Data reviewed: vital signs, nurses notes, lab test result(s), EKG, radiologic studies, CT scan, and as a result, I will admit patient. Counseling: I had a detailed discussion with the patient and/or guardian regarding: the historical points, exam findings, and any diagnostic results supporting the discharge/admit diagnosis, lab results, radiology results, the need for further work-up and treatment in the hospital. Admission orders: after a detailed discussion of the patient's condition and case, the admit orders are written by me. ED course: Pt with 2 episodes of syncope while sitting, no acute etiology found, spoke with Dr. Diallo, will admit for observation. . 10/28 11:00 Order name: Basic Metabolic Panel; Complete Time: 11: 10/28 11:00 Order name: CBC with Diff; Complete Time: 11: 10/28 11:00 Order name: Magnesium; Complete Time: 10/28 11:00 Order name: Protime (+inr); Complete Time: 10/28 11:00 Order name: Ptt, Activated; Complete Time: 10/28 11:00 Order name: Troponin (emerg Dept Use Only); Complete Time: : 10/28 11:00 Order name: EKG; Complete Time: 11: 10/28 11:07 Order name: CT Head Brain wo Cont; Complete Time: 11: 10/28 12:31 Order name: Urine Dipstick--Ancillary (enter results) 10/28 12:32 Order name: Urine Dipstick-Ancillary [facility] 10/28 12:42 Order name: COVID-19 : Document "Date of Symptom Onset" if Symptomatic. 10/28 14:10 Order name: CORONAVIRUS [facility] 10/28 14:50 Order name: SARS-COV-2 RT PCR [facility] 10/28 11:00 Order name: Cardiac monitoring; Complete Time: 11: 10/28 11:00 Order name: EKG - Nurse/Tech; Complete Time: 11:35 rn 10/28 11:00 Order name: IV Saline Lock; Complete Time: : rn 10/28 11:00 Order name: Labs collected and sent; Complete Time: : 10/28 11:00 Order name: NPO; Complete Time: 11: 10/28 11:00 Order name: O2 Per Protocol; Complete Time: : rn 10/28 11:00 Order name: O2 Sat Monitoring; Complete Time: : rn 10/28 11:00 Order name: Urine Dipstick-Ancillary (obtain specimen); Complete Time: 12:22 rn EC:04 Rate is 57 beats/min. Rhythm is regular. QRS Mcdonald is Normal. MO interval is prolonged. rn QRS interval is normal. QT interval is normal. No Q waves. T waves are Normal. No ST changes noted. Clinical impression: Sinus bradycardia. Interpreted by me. Reviewed by me. Administered Medications: 12:15 Drug: NS 0.9% 500 ml Route: IV; Rate: bolus; Site: right antecubital; ca1 13:00 Follow up: Response: No adverse reaction; IV Status: Completed infusion; IV Intake: ca1 500ml Disposition: 10/28/20 12:08 Hospitalization ordered by Feliciano Diallo for Observation. Preliminary diagnosis is Syncope and collapse. - Bed requested for Telemetry/MedSurg (observation). - Status is Observation. hb - Condition is Stable. - Problem is new. - Symptoms have improved. NIH Stroke Scale - NIH Stroke Score Date: 10/28/2020 Time: 11:00 Total Score = 0 1a. Level of Consciousness (LOC) - 0(Alert) 1b. Level of Consciousness (LOC) (Year \\T\\ Age) - 0(Both) 1c. LOC Commands (Open \\T\\ Closes Eyes/Slurry Man) - 0(Both) 2. Best Gaze (Lateral Gaze Paresis) - 0(Normal) 3. Visual Field Loss - 0(No visual loss) 4. Facial Palsy - 0(Normal) 5a. Left Arm: Motor (10-second hold) - 0(No drift) 5b. Right Arm: Motor (10-second hold) - 0(No drift) 6a. Left Leg: Motor (5-second hold - always test supine) - 0(No drift) 6b. Right Leg: Motor (5-second hold - always test supine) - 0(No drift) 7. Limb Ataxia (finger/nose \\T\\ heel/vela - test with eyes open) - 0(Absent) 8. Sensory Loss (pinprick arms/legs/face) - 0(Normal) 9. Best Language: Aphasia (description/naming/reading) - 0(No aphasia) 10. Dysarthria (speech clarity - read or repeat words) - 0(Normal) 11. Extinction and Inattention (visual/tactile/auditory/spatial/personal) - 0(No abnormality) Initials: ca1 Signatures: Dispatcher [employer] Harper Maguire, RN RN Ra Schroeder MD MD rn Baxter, Heather, RN RN Ellie Arias RN RN ca1 Corrections: (The following items were deleted from the chart) 14:59 12:08 Hospitalization Ordered by Feliciano Diallo MD for Observation. Preliminary dw diagnosis is Syncope and collapse. Bed requested for Telemetry/MedSurg (observation). Status is Observation. Condition is Stable. Problem is new. Symptoms have improved. rn 16:31 14:59 10/28/2020 12:08 Hospitalization Ordered by Feliciano Diallo MD for hb Observation. Preliminary diagnosis is Syncope and collapse. Bed requested for Telemetry/MedSurg (observation). Status is Observation. Condition is Stable. Problem is new. Symptoms have improved. dw
--- NOTE | 2020-10-28 12:09 | ER ---
Nurse's Notes [facility] Name: Mary Roberson Age: 69 yrs Sex: Female : 1950 Arrival Date: 10/28/2020 Time: 10:59 Bed 6 Private MD: Diagnosis: Syncope and collapse Presentation: 10/28 11:00 Chief complaint: EMS states: had a 2 episode of a syncopal episode this morning an hour ca1 BAND SAWYER. Reports previous episode 1 - 2 about 5 - 6 months ago. Syncopal episode described as "black outs with twitches then comes back A\\T\\Ox3. Reports episodes last approximately < 1 minute. ECG12L unremarkable. BGL 116. BP 170/90 has not taken BP meds yet this morning. HR 80s. Coronavirus screen: Client denies travel out of the [place] in the last 14 days. At this time, the client does not indicate any symptoms associated with coronavirus-19. Ebola Screen: Patient negative for fever greater than or equal to 101.5 degrees Fahrenheit, and additional compatible Ebola Virus Disease symptoms Patient denies exposure to infectious person. Patient denies travel to an Ebola-affected area in the 21 days before illness onset. No symptoms or risks identified at this time. Initial Sepsis Screen: Does the patient meet any 2 criteria? No. Patient's initial sepsis screen is negative. Does the patient have a suspected source of infection? No. Patient's initial sepsis screen is negative. Risk Assessment: Do you want to hurt yourself or someone else? Patient reports no desire to harm self or others. Onset of symptoms was October 28, 2020 at 10:00. 11:00 Acuity: LAURIE 3 ca1 11:00 Method Of Arrival: EMS: [facility] ca1 Triage Assessment: 11:05 General: Appears in no apparent distress. comfortable, Behavior is calm, cooperative, ca1 appropriate for age. Pain: Complains of pain in face and scalp Pain began 1 hour ago. EENT: No deficits noted. No signs and/or symptoms were reported regarding the EENT system. Neuro: Level of Consciousness is awake, alert, obeys commands, Oriented to person, place, time, situation, Coating Machine Operator Helper are equal bilaterally Moves all extremities. Speech is normal, Facial symmetry appears normal, Pupils are PERRLA, Intact Reports headache. Neuro: Reports a syncopal episode. Cardiovascular: Heart tones S1 S2 present Capillary refill < 3 seconds Patient's skin is warm and dry. Rhythm is sinus rhythm. Respiratory: Airway is patent Respiratory effort is even, unlabored, Respiratory pattern is regular, symmetrical, Breath sounds are clear bilaterally. GI: Abdomen is round non-distended, Bowel sounds present X 4 quads. : No signs and/or symptoms were reported regarding the genitourinary system. Derm: Skin is intact, is healthy with good turgor, Skin is pink, warm \\T\\ dry. Musculoskeletal: Circulation, motion, and sensation intact. Capillary refill < 3 seconds. Historical: - Allergies: 11:05 Levaquin; ca1 - PMHx: 11:05 Carotid blockage; Fibromyalgia; GERD; Hypertension; renal artery blockage; ca1 - PSHx: 11:05 renal Stents; ca1 - Immunization history:: Adult Immunizations up to date. - Social history:: Smoking status: Patient denies any tobacco usage or history of. - Family history:: not pertinent. - Hospitalizations: : No recent hospitalization is reported. Screenin:07 Abuse screen: Denies threats or abuse. Denies injuries from another. Nutritional ca1 screening: No deficits noted. Tuberculosis screening: No symptoms or risk factors identified. Fall Risk IV access (20 points). Total Alva Fall Scale indicates No Risk (0-24 pts). Assessment: 11:07 Reassessment: see triage notes. Neuro: Level of Consciousness is awake, alert, obeys ca1 commands, Oriented to person, place, time, situation. Cardiovascular: Heart tones S1 S2 present Capillary refill < 3 seconds Patient's skin is warm and dry. Rhythm is sinus rhythm. 12:00 Reassessment: Patient appears in no apparent distress at this time. Patient and/or ca1 family updated on plan of care and expected duration. Pain level reassessed. Patient is alert, oriented x 3, equal unlabored respirations, skin warm/dry/pink. 13:00 Reassessment: Patient appears in no apparent distress at this time. Patient and/or ca1 family updated on plan of care and expected duration. Pain level reassessed. Patient is alert, oriented x 3, equal unlabored respirations, skin warm/dry/pink. 14:00 Reassessment: Patient appears in no apparent distress at this time. Patient and/or hb family updated on plan of care and expected duration. Pain level reassessed. Patient is alert, oriented x 3, equal unlabored respirations, skin warm/dry/pink. 15:00 Reassessment: Patient appears in no apparent distress at this time. Patient and/or hb family updated on plan of care and expected duration. Pain level reassessed. Patient is alert, oriented x 3, equal unlabored respirations, skin warm/dry/pink. 16:00 Reassessment: Patient appears in no apparent distress at this time. Patient and/or hb family updated on plan of care and expected duration. Pain level reassessed. Patient is alert, oriented x 3, equal unlabored respirations, skin warm/dry/pink. Vital Signs: 11:00 BP 165 / 78; Pulse 60; Resp 16 S; Temp 98(O); Pulse Ox 99% on R/A; ca1 12:00 BP 158 / 57; Pulse 61; Resp 18 S; Pulse Ox 99% on R/A; ca1 13:00 BP 157 / 65; Pulse 59; Resp 16 S; Pulse Ox 99% on R/A; ca1 14:00 BP 150 / 64; Pulse 66; Resp 17; Pulse Ox 100% on R/A; hb 15:00 BP 148 / 68; Pulse 62; Resp 15; Pulse Ox 99% on R/A; hb 16:00 BP 144 / 56; Pulse 64; Resp 15; Pulse Ox 99% on R/A; hb NIH Stroke Scale Scores: 11:00 NIHSS Score: 0 ca1 ED Course: 10:59 Patient arrived in ED. ca1 11:00 Ra Schroeder MD is Attending Physician. rn 11:04 Triage completed. ca1 11:05 Arm band placed on right wrist. ca1 11:06 Ellie Arias, RN is Primary Nurse. ca1 11:07 Patient has correct armband on for positive identification. Placed in gown. Bed in low ca1 position. Call light in reach. Side rails up X2. pvc monitor on. Pulse ox on. NIBP on. 11:07 Door closed. Lights dimmed. Warm blanket given. ca1 11:07 No provider procedures requiring assistance completed. Maintain EMS IV. Dressing ca1 intact. Good blood return noted. Site clean \\T\\ dry. Gauge \\T\\ site: 20 G RAC. 11:12 Initial lab(s) drawn, by me, sent to lab. hb 11:22 CT Head Brain wo Cont In Process Unspecified. EDMS 12:08 Feliciano Diallo MD is Hospitalizing Provider. rn 13:04 Urine Dipstick--Ancillary (enter results) Sent. sv 13:33 Ellie Arias, RN is Primary Nurse. ca1 14:11 CORONAVIRUS Sent. mh5 14:11 COVID-19 : Document "Date of Symptom Onset" if Symptomatic. Sent. 5 16:00 Patient admitted, IV remains in place. hb Administered Medications: 12:15 Drug: NS 0.9% 500 ml Route: IV; Rate: bolus; Site: right antecubital; ca1 13:00 Follow up: Response: No adverse reaction; IV Status: Completed infusion; IV Intake: ca1 500ml Intake: 13:00 IV: 500ml; Total: 500ml. ca1 Outcome: 12:08 Decision to Hospitalize by Provider. rn 16:17 Admitted to Tele accompanied by tech, via wheelchair, room 213, with chart, Report hb called to Yesica ROSE 16:17 Condition: stable 16:17 Instructed on the need for admit, Demonstrated understanding of instructions. 16:31 Patient left the ED. NIH Stroke Scale - NIH Stroke Score Date: 10/28/2020 Time: 11:00 Total Score = 0 1a. Level of Consciousness (LOC) - 0(Alert) 1b. Level of Consciousness (LOC) (Year \\T\\ Age) - 0(Both) 1c. LOC Commands (Open \\T\\ Closes Eyes/Hosiery Mender) - 0(Both) 2. Best Gaze (Lateral Gaze Paresis) - 0(Normal) 3. Visual Field Loss - 0(No visual loss) 4. Facial Palsy - 0(Normal) 5a. Left Arm: Motor (10-second hold) - 0(No drift) 5b. Right Arm: Motor (10-second hold) - 0(No drift) 6a. Left Leg: Motor (5-second hold - always test supine) - 0(No drift) 6b. Right Leg: Motor (5-second hold - always test supine) - 0(No drift) 7. Limb Ataxia (finger/nose \\T\\ heel/vela - test with eyes open) - 0(Absent) 8. Sensory Loss (pinprick arms/legs/face) - 0(Normal) 9. Best Language: Aphasia (description/naming/reading) - 0(No aphasia) 10. Dysarthria (speech clarity - read or repeat words) - 0(Normal) 11. Extinction and Inattention (visual/tactile/auditory/spatial/personal) - 0(No abnormality) Initials: ca1 Signatures: Dispatcher [employer] Agatha Lara, RN RN Ra Suarez MD MD rn Baxter, Heather, RN RN hb Martinez, Maria [facility] Ellie Arias RN RN ca1 Corrections: (The following items were deleted from the chart) 11:09 11:07 pvc monitor on. Pulse ox on. NIBP on. ca1 ca1
[2020-10-28] MEDS ORDERED: NA CHLORIDE 0.9% 500 ML ONE (12:27)
[2020-10-28 13:56] LABS: Urine Blood NEGATIVE (Negative); Urine Glucose NEGATIVE (Negative); Urine Protein NEGATIVE (NEG)
[2020-10-28] MEDS ORDERED: ONDANSETRON 4 MG/2 ML VIAL IV PRN (16:21)
[2020-10-28] MEDS ORDERED: NA CHLORIDE 0.9% 1,000 ML IV SCH (16:21)
[2020-10-28 18:21] VITALS: BMI 24.6
[2020-10-28] MEDS ORDERED: cloNIDine HCL 0.1 MG TAB PO PRN (18:32)
--- NOTE | 2020-10-28 18:42 | P.SSS ---
Patient History Date of Service: 10/28/20 Reason for admission: PASSED OUT TWICE History of Present Illness: MS FRENCH HAS SEVERE HYPERTENSION, RENAL ARTERY STENOSIS SP STENTS, COMES WITH TWO EPISODES OF SYNCOPE TODAY WHILE SHE WAS SITTING AND NOT IN STRESS. SHE HAD NO WEAKNESS, PARALYSIS ETC. SHE HAD NO CHEST PAIN OR PALPITATIONS. AFTER THIS EPISODES FOR A MINUTE OR TWO SHE WAS A LITTLE CONFUSED AND THERE WAS ON INCONTINENCE OF URINE. SHE IS BACK TO HER BASELINE WHEN I SEE HER THIS AM IN ER. Allergies levofloxacin [From Levaquin] Allergy (Mild, Verified 10/28/20 17:22) Hives/Rash Home medications list reviewed: Yes Home Medications: Acetaminophen [Tylenol Arthritis] 2 tab PO BIDP PRN 10/04/19 Atorvastatin Calcium 1 tab PO BEDTIME 10/04/19 Famotidine 1 tab PO BID 10/04/19 Melatonin 0.5 mg PO BEDTIME 10/04/19 Albuterol Sulfate [Ventolin Hfa] 1 spray IH BIDP PRN 12/09/19 Aspirin Chewable [Aspirin Chewable*] 1 tab PO DAILY 12/09/19 Betameth Dip 0.05% [Diprosone 0.05% OINTMENT*] 1 florina TOP BIDP PRN 12/09/19 Cetirizine HCl 1 tab PO DAILY 12/09/19 Clopidogrel Bisulfate [Plavix*] 1 tab PO DAILY 12/09/19 Losartan/Hydrochlorothiazide [Losartan-Hctz 100-25 mg Tab] 1 tab PO DAILY 12/09/19 Ospemifene [Osphena] 30 mg PO SEECOM 12/09/19 Sertraline [Zoloft*] 25 mg PO DAILY 12/09/19 Vitamin E 1 tab PO DAILY 12/09/19 Amlodipine [Norvasc] 5 mg PO DAILY #30 tab 12/16/19 Biotin 5,000 mcg PO DAILY 12/16/19 Carvedilol [Coreg] 25 mg PO BID 12/16/19 Cosamin Asu Advanced 1 cap PO BID 12/16/19 Curaphen Extra Strength 1 tab PO BID 12/16/19 Multi-Probiotic Sinus Support 1 cap PO BID 12/16/19 [place]-3 Fatty Acids/Dha/Epa [Ovega-3 Softgel] 1 cap PO BID 12/16/19 Polyethylene Glycol 3350 [Clearlax] 17 gm PO DAILY 12/16/19 Qunol Coq10 100 mg PO DAILY 12/16/19 Sulfurzyme 1 cap PO BID 12/16/19 [place] Blm 1 cap PO BID 12/16/19 cloNIDine HCL [Catapres] 1 tab PO TIDP PRN 12/16/19 - Past Medical/Surgical History Has patient received pneumonia vaccine in the past: Yes Diabetic: No -: HTN -: COPD -: Fibromyalgia -: renal artery blockage -: osteoarthritis -: carotid blockage -: Tonsillectomy -: Appendectomy -: Tubal ligation -: Total knee replacement, Right -: renal artery stent - Family History Father -: Heart disease, Hypertension, Lung disease, Cancer, Kidney disease Notes: prostate CA, rectal CA Mother -: Liver disease Notes: liver cirrhosis Sister -: Heart disease - Social History Smoking Status: Former smoker Alcohol use: No CD- Drugs: No Caffeine use: Yes Place of Residence: Home Review of Systems 10-point ROS is otherwise unremarkable Physical Examination - Vital Signs Temperature: 97.8 F Blood Pressure: 193/77 Pulse: 60 Respirations: 16 Pulse Ox (%): 96 - Physical Exam General: Alert, In no apparent distress HEENT: Atraumatic, PERRLA, Mucous membr. moist/pink, EOMI, Sclerae nonicteric Neck: Supple, 2+ carotid pulse no bruit, No LAD, Without JVD or thyroid abnormality Respiratory: Clear to auscultation bilaterally, Normal air movement Cardiovascular: Regular rate/rhythm, Normal S1 S2 Gastrointestinal: Normal bowel sounds, No tenderness Musculoskeletal: No tenderness Integumentary: No rashes Neurological: Normal gait, Normal speech, Normal strength at 5/5 x4 extr, Normal tone, Normal affect Lymphatics: No axilla or inguinal lymphadenopathy - Studies Laboratory Data (last 24 hrs) 10/28/20 11:12: PT 11.0, INR 0.96, APTT 29.5 10/28/20 11:12: WBC 5.70, Hgb 10.4 L, Hct 32.1 L, Plt Count 257 10/28/20 11:12: Sodium 142, Potassium 4.5, BUN 23 H, Creatinine 0.78, Glucose 116 H, Magnesium 2.1 - Diagnosis (Problem(s)) (1) Syncopal episodes Current Visit: Yes Status: Acute Plan: POSSIBLE ATYPICAL SEIZURES. THERE WAS NO EVENT THAT TRIGGERED THIS. SHE HAS NO SIGNS OF ARRYTHMIA. THIS CAN BE V FIB, V TACH BUT SHE HAS NO STRUCTURAL DISEASE AND ALSO SHE HAS NO ACTIVE CAD. WILL DO MRI STROKE PROTOCOL IN AM. THERE ARE NO CLINICAL DEFICITS. (2) Malignant essential hypertension Current Visit: No Status: Acute Plan: I STARTED HER HOME MEDS AFTER REVIEWING MY RECORDS. HER BP HAS BEEN VERY DIFFICULT TO CONTROL AND NEEDS MULTIPLE MEDS DESPITE RENAL ARTERY STENTS. SHE HAD CAROTID ARTERY DOPPLER A YEAR AGO WITH NO MAJOR BLOCKAGE. SHE HAD 50% PLAQUE. SHE IS ON ANTIPLATELET THERAPY - Disposition Disposition: ROUTINE DISCHARGE
[2020-10-28] MEDS: NA CHLORIDE 0.9% 1,000 ML IV SCH (19:00)
[2020-10-28] MEDS ORDERED: DIPROSONE 0.05% TOP PRN (19:12)
[2020-10-28] MEDS ORDERED: ALBUTEROL INHALER 60 PUFF/8 GM IH PRN (19:12)
[2020-10-28] MEDS ORDERED: OSPEMIFENE 60 MG PO SCH (19:15)
[2020-10-28] MEDS: NALTREXONE 3 MG PO SCH (21:00)
[2020-10-28] MEDS ORDERED: ATORVASTATIN 10 MG TAB PO SCH (21:00)
[2020-10-28] MEDS: carvediloL 25 MG TAB PO SCH (21:00)
[2020-10-28] MEDS ORDERED: GUANFACINE HCL 1 MG TAB PO SCH (21:00)
[2020-10-28] MEDS: PANTOPRAZOLE 40MG TABLET PO SCH (21:03)
[2020-10-28] MEDS: ACETAMINOPHEN 500 MG TAB PO PRN (22:36)
[2020-10-29 06:05] LABS: Absolute Lymphocytes (CBC) 1.9 K/uL (0.7-4.9); Basophils % 1.6 % (0-1.3); Hematocrit 30.2 % (36.0-45.0); Lymphocytes % 30.2 % (15.3-44.8); MPV 7.9 fL (7.6-11.3); RBC Red Blood Cell Count 3.47 M/uL (3.86-4.86)
[2020-10-29] MEDS: NA CHLORIDE 0.9% 1,000 ML IV SCH (06:12)
[2020-10-29] MEDS ORDERED: ALPRAZOLAM 0.25 MG TABLET PO ONE (06:29)
[2020-10-29 07:07] LABS: Potassium 3.9 mmol/L (3.5-5.1)
[2020-10-29 08:42] VITALS: O2SAT 95
--- NOTE | 2020-10-29 08:59 | RAD REPORT ---
EXAM DESCRIPTION: MRI - Brain W/Wo Cont - 10/29/2020 8:37 am CLINICAL HISTORY: AMS, WEAKNESS COMPARISON: MRA Head Wo Cont dated 10/29/2020; MRA Neck W/Wo Cont dated 10/29/2020; Head Brain Wo Cont dated 10/28/2020 TECHNIQUE: Sagittal and axial T1-weighted images were obtained. Axial PD/heavily T2-weighted and T2- FLAIR images were obtained along with axial DWI/ADC mapping sequences. Coronal heavily T2 weighted s equence obtained. Axial and coronal post-contrast T1-weighted images were also obtained. A 16 ml Mul tihance contrast following utilized. FINDINGS: No intracranial hemorrhage, mass or acute infarction. There is no edema or shift of midli ne structures. No extra-axial fluid collections. Maria-matter/white matter junction is preserved. Sig nal voids are seen as a normal finding in the major intracranial vessels. Patient has atrophy changes are mild. Ventricles are in proportion to any volume loss. Nonenhancing T2 white matter signal abnor malities are present typically chronic ischemic change in a patient this age. Post-contrast images show normal enhancement. No dural thickening. Mastoid air cells are clear. Patient has prominent mucosal thickening and sinus wall thickening in th e maxillary sinus on the right and mild mucosal thickening in the left maxillary sinus. Ethmoid and s phenoid mucosal thickening changes also present. IMPRESSION: Mild atrophy and mild chronic ischemic changes are present. No infarction or acute intra cranial process. Mucosal thickening throughout multiple paranasal sinuses. No air-fluid level seen.
[2020-10-29] MEDS ORDERED: AMLODIPINE 2.5 MG TAB PO SCH (09:00)
[2020-10-29] MEDS ORDERED: COENZYME Q10 PO SCH (09:00)
[2020-10-29] MEDS ORDERED: SERTRALINE HCL 50 MG TAB PO SCH (09:00)
[2020-10-29] MEDS: NALTREXONE 3 MG PO SCH (09:00)
[2020-10-29] MEDS ORDERED: CLOPIDOGREL 75 MG TABLET PO SCH (09:00)
[2020-10-29] MEDS ORDERED: AMLODIPINE 5 MG TAB PO SCH (09:00)
[2020-10-29] MEDS ORDERED: SPIRONOLACTONE 25 MG TABLET PO SCH (09:00)
--- NOTE | 2020-10-29 09:02 | RAD REPORT ---
EXAM DESCRIPTION: MRI - MRA Head Wo Cont - 10/29/2020 8:37 am CLINICAL HISTORY: AMS, weakness, stroke-like symptoms COMPARISON: MRI brain same date, CT head October 28 TECHNIQUE: Axial and coronal 3D [id number] image acquisition was performed. 3D rotational images were generated with source and reconstruction images reviewed. Horizontal and vertical axis rotation al views generated using MIP protocol. FINDINGS: No aneurysm or vascular malformation identified. Major venous sinuses are patent. Atherosc lerotic changes in the cavernous and supraclinoid portions of each internal carotid artery are presen t but do not cause significant luminal narrowing. There are mild atherosclerotic changes in the bilat eral A1 AUDREY branches and proximal left posterior cerebral artery. Middle cerebral arteries show mild atherosclerotic change with no named branch occlusion. No vasculitis. Patient has a large right poste rior communicating artery. The right P1 segment of the posterior cerebral artery is absent as an leroy omic variant. No basilar artery or distal vertebral artery stenosis. IMPRESSION: Mild atherosclerotic changes throughout the intracranial vasculature and the distal inte rnal carotid arteries. No occlusion or significant flow restricting lesion identifiable.
--- NOTE | 2020-10-29 09:09 | RAD REPORT ---
EXAM DESCRIPTION: MRI - MRA Neck W/Wo Cont - 10/29/2020 8:37 am CLINICAL HISTORY: AMS, weakness, stroke-like symptoms COMPARISON: MRI brain same date, MRA head same date TECHNIQUE: MR angiography of the cervical vasculature performed. Coronal imaging plane acquisition u tilized. A 16 MultiHance contrast volume was utilized. Coronal reformatted images were generated and reviewed. Vertical axis 3D rotational projections obtained using maximum intensity projection protoco l. FINDINGS: Exam has motion degradation limitation. A 3 vessel aortic arch configuration with no origins stenosis. Vertebral artery origins also appear t o be without significant narrowing. Vertebral arteries are codominant with no dissection, stenosis or suspicious finding. No basilar artery abnormality seen. Bilateral common carotid and internal carotid arteries show no significant atherosclerotic narrowing and no dissection change. There is mild tortuosity of the bulb and proximal AUDREY on the right. IMPRESSION: No dissection or significant atherosclerotic change of the carotid and vertebral neck va sculature.
[2020-10-29] MEDS: carvediloL 25 MG TAB PO SCH (09:20)
[2020-10-29] MEDS: PANTOPRAZOLE 40MG TABLET PO SCH (09:21)
[2020-10-29] MEDS: ACETAMINOPHEN 500 MG TAB PO PRN (09:34)
[2020-10-29 14:15] VITALS: BP 163/70; TEMP 98.6
--- NOTE | 2020-10-31 13:31 | EEG ---
CHART: [id number] TEST ID#: [id number] DATE OF STUDY: 10/29/2020 THE EEG WAS RECORDED PORTABLE IN THE PATIENT'S ROOM ON A 17 CHANNEL MACHINE. ELECTRODES WERE APPLIED IN THE USUAL MANNER USING THE INTERNATIONAL 10-20 SYSTEM. THE WAKING BACKGROUND RHYTHM IN THIS RECORD CONSISTS OF VERY WELL DEVELOPED AND WELL ORGANIZED WAVES OF 10 HZ., MAXIMAL IN THE POSTERIOR HEAD REGIONS WHICH ATTENUATE NORMALLY WITH EYE OPENING. LOW-VOLTAGE 18-22 HZ ACTIVITY IS EXPRESSED IN THE FRONTAL REGIONS. THERE ARE NO FOCAL OR LATERALIZING FEATURES. NO EPILEPTIFORM ACTIVITY APPEARS. SLEEP DID NOT OCCUR. HYPERVENTILATION WAS NOT PERFORMED. PHOTIC STIMULATION PRODUCED FAIR DRIVING BILATERALLY. IMPRESSION: NORMAL EEG FOR THE AGE OF THE PATIENT IN [place], DROWSINESS AND SLEEP.
== END 2020-10-29 14:56 | disposition home or self-care (01) ==
LOC: ER 10:53 → ERHOLD 12:26 → 2ND 16:16
PROVIDERS: ADMIT Internal Medicine; ATTEND Internal Medicine
DX: R55 Syncope and collapse (principal); I10 Essential (primary) hypertension; I70.1 Atherosclerosis of renal artery; I65.29 Occlusion and stenosis of unspecified carotid artery; J44.9 Chronic obstructive pulmonary disease, unspecified; M79.7 Fibromyalgia; K21.9 Gastro-esophageal reflux disease without esophagitis; M19.90 Unspecified osteoarthritis, unspecified site; Z87.891 Personal history of nicotine dependence; Z20.822 Contact with and (suspected) exposure to COVID-19; Z79.82 Long term (current) use of aspirin; Z79.02 Long term (current) use of antithrombotics/antiplatelets; Z88.3 Allergy status to other anti-infective agents; Z96.651 Presence of right artificial knee joint; Z82.49 Family history of ischemic heart disease and other diseases of the circulatory system; Z80.42 Family history of malignant neoplasm of prostate; Z80.0 Family history of malignant neoplasm of digestive organs; Z84.1 Family history of disorders of kidney and ureter; Z83.6 Family history of other diseases of the respiratory system
CPT/HCPCS: 93005; 95819; 85025 ×2; 80048 ×2; 36415; 83735; 85610; 85730; 81003; 84484; 70450; 70553; 70544; 70549; 96360; 99285; U0003; A9577; J7040; J7030 ×2; G0378

== ENCOUNTER 2020-11-19 06:33 | Day surgery (SDC) | payer OTHER, MEDICARE ==
--- NOTE | 2020-11-16 12:29 | RAD REPORT ---
EXAM DESCRIPTION: RAD - Chest Pa And Lat (2 Views) - 11/16/2020 12:13 pm CLINICAL HISTORY: preop Chest pain. COMPARISON: Chest Single View dated 12/08/2019; Chest Single View dated 10/04/2019; Chest Pa And Lat (2 Views) dated 09/22/2018 FINDINGS: The lungs are clear. The heart is upper limit of normal in size. No displaced fractures.
[2020-11-16 12:39] LABS: Absolute Lymphocytes (CBC) 1.9 K/uL (0.7-4.9); Basophils % 2.1 % (0-1.3); Lymphocytes % 30.2 % (15.3-44.8); MPV 8.4 fL (7.6-11.3); RBC Red Blood Cell Count 3.94 M/uL (3.86-4.86)
[2020-11-16 12:43] LABS: Protime INR 1.02
[2020-11-16 12:48] LABS: Potassium 4.7 mmol/L (3.5-5.1)
[2020-11-19] MEDS ORDERED: LIDOCAINE 1% 20 ML MDV ONE (06:58)
[2020-11-19] MEDS ORDERED: HEPA 1000U/500MLS 1,000 UNIT/500 ML BAG IV ONE (06:59)
[2020-11-19] MEDS ORDERED: NA CHLORIDE 0.9% 500 ML ONE (07:04)
[2020-11-19] MEDS ORDERED: MIDAZOLAM HCL 2 MG/2 ML INJ ONE ×2 (07:41→07:42)
[2020-11-19] MEDS ORDERED: ATROPINE SULF 1 MG/10 ML SYR IV ONE (07:42)
[2020-11-19] MEDS ORDERED: FENTANYL CITR 100 MCG/2 ML ONE (07:42)
[2020-11-19 08:20] VITALS: TEMP 95.8
[2020-11-19 09:49] VITALS: BP 142/44; O2SAT 97
--- NOTE | 2020-11-19 18:00 | OP ---
Surgeon: Peter Monahan MD Activities Director Scouting: Jackelin Freeman. Reason For Admission: Reason for admission to the warehouse laborer as an outpatient was selective bilateral carotid angiogram because of abnormal carotid Doppler and cerebrovascular disease. Indication And Procedure In Detail: Ms. Roberson is a 69-year-old. Has history of hypertension, dyslipi demia, peripheral arterial disease. Admitted today 11/19/2020 to the warehouse laborer as an outpatient, prep ped and draped in the routine sterile fashion, given Versed and fentanyl for sedation. A 6-Colombian sh eath introduced in the right common femoral artery successfully using the Seldinger technique and 10 mL of Xylocaine. Angiography there was normal. Angio-Seal was used to close the case. A JR4 cathet er was used to select the right common carotid artery. Angiography there showed normal right common carotid. She had a 40% to 50% right internal carotid. The right external carotid was normal. The c atheter was then moved to the left common carotid artery. Angiography there showed a normal left com mon carotid, a 50% left external carotid. She had a 50% to 60% stenosis in the left ICA with ulcerat ed plaque. A 6-Colombian sheath and catheters were used. No complications. Blood Loss: 5 mL. Postoperative Diagnoses: [id number] CVD, bilateral. For now, the patient is not a candidate for surgery. Her stenosis is less than 70%. We will continu e medical therapy. I will have her go up on the Lipitor from 10 mg to 40 mg daily. She can go home today after 2 hours of bedrest and I wi ll see her in the office soon. EDUARDO/AUREA Voice ID: [id number] Report ID: [id number]
== END 2020-11-19 10:00 | disposition home or self-care (01) ==
LOC: CCL 06:33
DX: I65.23 Occlusion and stenosis of bilateral carotid arteries (principal); I70.1 Atherosclerosis of renal artery; I10 Essential (primary) hypertension; E78.2 Mixed hyperlipidemia; J44.1 Chronic obstructive pulmonary disease with (acute) exacerbation; K21.9 Gastro-esophageal reflux disease without esophagitis; M15.0 Primary generalized (osteo)arthritis; Z87.891 Personal history of nicotine dependence; Z01.810 Encounter for preprocedural cardiovascular examination; Z20.822 Contact with and (suspected) exposure to COVID-19
CPT/HCPCS: 93005; 85025; 80048; 36415; 85610; 85730; 71046; 36222; U0003; C1893; C1760; J2250; J3010; J7040; J1644

== ENCOUNTER 2022-03-24 06:30 | Day surgery (SDC) | payer OTHER, MEDICARE ==
[2022-03-21 16:24] LABS: Absolute Lymphocytes (CBC) 1.5 K/uL (0.7-4.9); Hematocrit 29.2 % (36.0-45.0); Lymphocytes % 25.6 % (15.3-44.8); MCV 82.8 fL (80-100); MPV 7.3 fL (7.6-11.3); RBC Red Blood Cell Count 3.53 M/uL (3.86-4.86)
--- NOTE | 2022-03-21 16:25 | RAD REPORT ---
EXAM DESCRIPTION: Bean Naylor (2 Views)03/21/2022 4:16 pm CLINICAL HISTORY: Preop/hypertension COMPARISON: 2020 FINDINGS: The lungs appear clear of acute infiltrate. The heart is normal size IMPRESSION: No acute abnormalities displayed
[2022-03-21 16:27] LABS: Protime INR 1.06
[2022-03-21 16:57] LABS: Potassium 5.7 mmol/L (3.5-5.1)
[2022-03-24] MEDS ORDERED: NA CHLORIDE 0.9% 500 ML ONE (06:56)
[2022-03-24] MEDS ORDERED: HEPA 1000U/500MLS 2,000 UNIT/1,000 ML BAG IV ONE (06:59)
[2022-03-24] MEDS ORDERED: LIDOCAINE 1% MPF 30 ML VIAL ONE (06:59)
[2022-03-24] MEDS ORDERED: FENTANYL CITR 100 MCG/2 ML ONE (07:01)
[2022-03-24] MEDS ORDERED: MIDAZOLAM HCL 2 MG/2 ML INJ ONE ×2 (07:02→07:45)
[2022-03-24] MEDS ORDERED: ATROPINE SULF 1 MG/10 ML SYR IV ONE (07:02)
[2022-03-24 07:43] LABS: Potassium 5.2 mmol/L (3.5-5.1)
--- NOTE | 2022-03-24 08:15 | EKG ---
Test Date: 2022-03-21 Test Time: 15:54:39 Distributor Advertising Material: ELICEO MEASUREMENT RESULTS: Intervals: Rate: 53 ND: 218 QRSD: 86 QT: 414 QTc: 388 [place]: P: 16 ND: 218 QRS: 19 T: 33 INTERPRETIVE STATEMENTS: Sinus bradycardia with 1st degree AV block Otherwise normal ECG Compared to ECG 02/16/2021 12:59:22 No significant changes Electronically Signed On 03-24-22 08:07:09 CDT by Peter Monahan
[2022-03-24 10:28] VITALS: BP 112/43; O2SAT 99
--- NOTE | 2022-03-24 18:06 | OP ---
Date of Procedure: 03/24/2022 Surgeon: Peter Monahan MD Psychiatric Nurse Practitioner: Ms. Tonia Dodge. Procedures: Selective bilateral carotid angiogram and common femoral artery angiogram. Indications: Ms. Roberson is 71, history of CVD and severe stenosis on the right side by carotid Doppler . Procedure In Detail: Brought to the catheter builder today as an outpatient, prepped and draped in routine s terile fashion. Given Versed and fentanyl for sedation. A 6-Nepali sheath introduced in the right c ommon femoral artery. Common femoral artery angiogram was normal. Angio-Seal was used to close the case. A JR4 catheter was used to select the right common carotid and the left common carotid artery. This showed 60% right internal carotid artery stenosis, 30% left internal carotid artery stenosis. Both ECAs and common carotids were normal. Total conscious sedation was 30 minutes, no complication s. Blood loss was 5 mL. Postoperative Diagnosis: Moderate CVD. I will have the films reviewed by [facility] Surgery in [place]. The patient will go home in 2 hours of bedr est. I will see her in the office in 2 weeks. EDUARDO/AUREA Voice ID: [id number] Report ID: [id number]
== END 2022-03-24 10:00 | disposition home or self-care (01) ==
LOC: CCL 06:30
DX: I65.23 Occlusion and stenosis of bilateral carotid arteries (principal); I10 Essential (primary) hypertension; R00.1 Bradycardia, unspecified; I44.0 Atrioventricular block, first degree; I70.1 Atherosclerosis of renal artery; E78.2 Mixed hyperlipidemia; J44.1 Chronic obstructive pulmonary disease with (acute) exacerbation; K21.9 Gastro-esophageal reflux disease without esophagitis; M15.0 Primary generalized (osteo)arthritis; G40.909 Epilepsy, unspecified, not intractable, without status epilepticus; Z79.899 Other long term (current) drug therapy; Z87.891 Personal history of nicotine dependence
CPT/HCPCS: 93005; 85025; 80048 ×2; 36415 ×2; 85610; 85730; 71046; 36222; C1893; C1760; G0269; J2250 ×2; J3010; J7040; J1644

== ENCOUNTER 2022-05-25 08:16 | Emergency (ER) | payer OTHER, MEDICARE ==
--- OUTSIDE RECORDS SUMMARY | 2022-05-25 08:22 | XMS REPORT | Continuity of Care Document ---
:1950 Author Organization [facility] t Address [address] [place] [address] Care Team Providers Name Role Phone Feliciano Lyons Primary Care Physician LOIDA BAZZI Attending Clinician Unavailable RAUL HINKLE Attending Clinician Unavailable JAYDEN RODRIGUEZ Attending Clinician Unavailable AIDEN PALUMBO Attending Clinician Unavailable JAYDEN RODRIGUEZ Attending Clinician Unavailable Carolyn Parkinson MA Attending Clinician Unavailable Raul Hinkle MD Attending Clinician Doctor Unassigned, [place] Attending Clinician Unavailable Only, Adc Test Attending Clinician Unavailable LUDWIG BAILEY Attending Clinician Unavailable YANELY DUNLAP Attending Clinician Unavailable AURELIANO MCCABE Attending Clinician Unavailable RAUL HINKLE Admitting Clinician Unavailable Raul Hinkle MD Admitting Clinician Payers Payer Name Policy Type Policy Number Effective Date Expiration Date Gilbert amezcua MEDICARE PART A AND [id number] 2021 B 00:00:00 MEDICARE PART A \T\ [id number] 2014 B 00:00:00 [facility] [id number] 2019 MEDICARE SUPPLEMENT 00:00:00 Problems Condition Condition Condition Status Onset Resolution Last Treating Co mments Source Name Details Category Date Date Treatment Clinician Date Discomfort Discomfort Disease Active [facility] of chest of chest 02-06 Health wall wall 00:00: 00 Stenosis Stenosis Disease Active [facility] of both of both 02-06 Health renal renal 00:00: arteries arteries 00 Bronchitis Bronchitis Disease Active U T 12-09 Health 00:00: 00 Osteoarthr Osteoarthr Disease Active Overview : Methodi itis of itis of 2-[address] right knee right knee 00:00: g of this Hosp[facility] 00 note l might be different from the original. 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) Active Problem 03/01/2021 [facility] Lumbar Lumbar Problem Active 2021-03-01 Luke tk radiculopa radiculopa 02:06:14 l thy thy Bilyl (disorder) (disorder) Active Problem 03/01/2021 [facility] Atypical Atypical Problem Active 2021-03-01 Memoria facial facial 02:06:14 l pain pain Billy (finding) (finding) Active Problem 03/01/2021 [facility] Dizziness Dizziness Problem Active 2021-03-01 Memoria (finding) (finding) 02:06:14 l Active [place] Problem 03/01/2021 [facility] Headache Headache Problem Active 2021-03-01 Memoria (finding) (finding) 02:06:14 l Active [place] Problem 03/01/2021 [facility] Hypertensi Hypertens Problem Active 2021-03-01 Memoria ve [place] 02:06:14 l disorder, disorder, Herm cyndi systemic systemic arterial arterial (disorder) (disorder) Active Problem 03/01/2021 [facility] Hyperlipid Hyperlipi Problem Active 2021-03-01 Memoria emia demia 02:06:14 l (disorder) (disorder) He rmann Active Problem 03/01/2021 [facility] Allergies, Adverse Reactions, Alerts Allergy Allergy Status Severity Reaction(s) Onset Inactive Treating Comm ents Source Name Type Date Date Clinician Sulfa Allergy Active Unknown [facility] Antibiot to 2-16 Health ics substanc 00:00: e 00 Levoflox Allergy Active Unknown 2017-08 CAUSES [facility] acin to 0-18 SHOULDER Health substanc 00:00: AND KNEE e 00 PAIN Levoflox Propensi Active Other (See 2017-08 CAUSES Me thodi acin ty to Comments) 0-[address] adverse 00:00: AND KNEE Hospita reaction 00 PAIN l s to drug NO KNOWN Drug Active Univers ALLERGIE Class ity of S [facility] Family History Family Member Diagnosis Comments Start Date Stop Date Source Natural father Cancer [facility] Natural father Heart disease [facility] Natural mother Clotting disorder [facility] Social History Social Habit Start Date Stop Date Quantity Comments Source History [facility] Alcohol Std Drinks History [facility] Alcohol Binge History [facility] Health Alcohol Comment History of tobacco Passive smoker [facility] use Exposure to 2022-05-02 2022-05-12 Not sure [facility] SARS-CoV-2 (event) 00:00:00 21:50:00 Tobacco use and 2022-03-26 2022-03-26 Smokeless tobacco [facility] exposure 00:00:00 00:00:00 non-user History SDOH 2021-09-18 2021-09-18 1 [facility] Alcohol Frequency 00:00:00 00:00:00 Alcohol intake 2020-01-23 2020-01-23 Current Protestant 00:00:00 00:00:00 non-drinker of Hospital alcohol (finding) Cigarette 2018-09-07 2018-09-07 Protestant pack-years 00:00:00 00:00:00 Hospital Cigarettes smoked 2018-09-07 2018-09-[address] current (pack per 00:00:00 00:00:00 Hospita l day) - Reported Sex Ass[birth year] At [birth year] Protestant 00:00:00 00:00:00 Hospital Smoking Status Start Date Stop Date Source Unknown if ever smoked [facility] Never smoked tobacco [facility] Social History 2021-02-26 15:25:07 2021-02-26 15:25: [facility] Medications Ordered Filled Start Stop Current Ordering Indication Dosage Frequency Signature Comments Components Source Medication Medication Date Date Medication? Clinician (SIG) Name Name predniSONE 2021-08- Yes [id number] Take 20 mg UT (Deltasone) 0-07 13-12 (4 tabs) Hea lth 5 MG tablet 00:00: 05:59 daily for 00 :00 30 days, 10 mg (2 tabs) daily for 30 days and 5 mg (1 tab) for days. predniSONE 2021-08- Yes [id number] Take 20 mg UT (Deltasone) 0-12 11-12 (4 tabs) Hea lth 5 MG tablet 00:00: 05:59 daily for 00 :00 30 days, 10 mg (2 tabs) daily for 30 days and 5 mg (1 tab) for days. levoFLOXaci 2021- No UT n 03-26- Health (Levaquin) 13:24: 00:00 125 MG 24 :00 split tablet spironolact 2021-0 Yes 50mg QD Take 50 mg UT one 8-24 by mouth 1 Health (Aldactone) 13:24: (one) time 100 MG 20 each day. tablet spironolact 2021-0 Yes 50mg QD Take 50 mg UT one 8-24 by mouth 1 Health (Aldactone) 13:24: (one) time 100 MG 20 each day. tablet spironolact 2021-0 Yes 50mg QD Take 50 mg UT one 8-24 by mouth 1 Health (Aldactone) 13:24: (one) time 100 MG 20 each day. tablet Gentamicin 2-0 Yes [id number] COMPOUND: UT Sulfate 7-18 Mix 80 mg Health powder 00:00: in 00 SinusRinse . Irrigate each side BID methylPREDN 2022-0 Yes [id number] 5mg Q.5D 5 mg 2 UT ISolone 7-18 (two) Health powder 00:00: times a 00 day. Gentamicin 2-0 Yes [id number] COMPOUND: UT Sulfate 7-18 Mix 80 mg Health powder 00:00: in 00 SinusRinse . Irrigate each side BID methylPREDN 2022-0 Yes [id number] 5mg Q.5D 5 mg 2 UT ISolone 7-18 (two) Health powder 00:00: times a 00 day. Gentamicin 2-0 Yes [id number] COMPOUND: UT Sulfate 7-18 Mix 80 mg Health powder 00:00: in 00 SinusRinse . Irrigate each side BID methylPREDN 2022-0 Yes [id number] 5mg Q.5D 5 mg 2 UT ISolone 7-18 (two) Health powder 00:00: times a 00 day. albuterol 2022-0 Yes Q.5D Inhale UT (2.5 7-07 twice a Health MG/3ML) 15:30: day. 0.083% 26 nebulizer solution albuterol 2-0 Yes Q.5D Inhale UT (2.5 7-07 twice a Health MG/3ML) 15:30: day. 0.083% 26 nebulizer solution albuterol 2-0 Yes Q.5D Inhale UT (2.5 7-07 twice a Health MG/3ML) 15:30: day. 0.083% 26 nebulizer solution Gentamicin 2-0 Yes [id number] COMPOUND: UT Sulfate 7-07 Mix 80 mg Health powder 00:00: in 00 SinusRinse . Irrigate each side BID X 30 days budesonide 2-0 Yes [id number] COMPOUND: UT (Pulmicort) 7-07 Mix 0.5 mg He alth 0.5 MG/2ML 00:00: Respule in nebulizer 00 SinusRinse solution . Irrigate each side once a day Gentamicin 2-0 Yes [id number] COMPOUND: UT Sulfate 7-07 Mix 80 mg Health powder 00:00: in 00 SinusRinse . Irrigate each side BID X 30 days budesonide 2022-0 Yes [id number] COMPOUND: UT (Pulmicort) - Mix 0.5 mg He alth 0.5 MG/2ML 00:00: Respule in nebulizer 00 SinusRinse solution . Irrigate each side once a day Gentamicin 2021-0 Yes [id number] COMPOUND: UT Sulfate 02-06 Mix 80 mg Health powder 00:00: in 00 SinusRinse . Irrigate each side BID X 30 days budesonide 2-0 Yes [id number] COMPOUND: UT (Pulmicort) 02-06 Mix 0.5 mg He alth 0.5 MG/2ML 00:00: Respule in nebulizer 00 SinusRinse solution . Irrigate each side once a day pantoprazol 2-0 Yes 40mg Take 40 mg UT e 2-16 by mouth. Health (ProtoNix) 13:21: 40 MG EC 05 tablet amitriptyli 2021-0 Yes 10mg Take 10 mg UT ne (Elavil) 2-16 by mouth. Hea lth 10 MG 13:21: tablet 05 betamethaso 2021-0 Yes Apply UT ne 2-16 topically. Health dipropionat 13:21: e 05 (Diprolene) 0.05 % cream acetaminoph 2021-0 Yes 1300mg Take 1,300 UT en (Tylenol 2-16 mg by Health 8 Hour) 650 13:21: mouth. MG ER 05 tablet sertraline 2021-0 Yes 50mg QD Take 50 mg U T (Zoloft) 50 2-16 by mouth 1 He alth MG tablet 13:21: (one) time 05 each day. pantoprazol 2-0 Yes 40mg Take 40 mg UT e 2-16 by mouth. Health (ProtoNix) 13:21: 40 MG EC 05 tablet amitriptyli 2-0 Yes 10mg Take 10 mg UT ne (Elavil) 2-16 by mouth. Hea lth 10 MG 13:21: tablet 05 betamethaso 2021-0 Yes Apply UT ne 2-16 topically. Health dipropionat 13:21: e 05 (Diprolene) 0.05 % cream acetaminoph 2022-0 Yes 1300mg Take 1,300 UT en (Tylenol 2-16 mg by Health 8 Hour) 650 13:21: mouth. MG ER 05 tablet sertraline 0 Yes 50mg QD Take 50 mg U T (Zoloft) 50 2-16 by mouth 1 He alth MG tablet 13:21: (one) time 05 each day. pantoprazol 0 Yes 40mg Take 40 mg UT e 2-16 by mouth. Health (ProtoNix) 13:21: 40 MG EC 05 tablet amitriptyli Yes 10mg Take 10 mg UT ne (Elavil) 2-16 by mouth. Hea lth 10 MG 13:21: tablet 05 betamethaso Yes Apply UT ne 2-16 topically. Health dipropionat 13:21: e 05 (Diprolene) 0.05 % cream acetaminoph Yes 1300mg Take 1,300 UT en (Tylenol 2-16 mg by Health 8 Hour) 650 13:21: mouth. MG ER 05 tablet sertraline Yes 50mg QD Take 50 mg U T (Zoloft) 50 2-16 by mouth 1 He alth MG tablet 13:21: (one) time 05 each day. atorvastati Yes UT n (Lipitor) 2-03 Health 80 MG 00:00: tablet 00 atorvastati 0 Yes UT n (Lipitor) 2-03 Health 80 MG 00:00: tablet 00 atorvastati 0 Yes UT n (Lipitor) 2-03 Health 80 MG 00:00: tablet 00 losartan-hy 2020-08 Yes UT droCHLOROth 2-13 Health iazide 00:00: (Hyzaar) 00 100-25 MG tablet losartan-hy 2020-08 Yes UT droCHLOROth 2-13 Health iazide 00:00: (Hyzaar) 00 100-25 MG tablet losartan-hy 2020-08 Yes UT droCHLOROth 2-13 Health iazide 00:00: (Hyzaar) 00 100-25 MG tablet carvedilol 2020-08 Yes UT (Coreg) 1-28 Health 12.5 MG 00:00: tablet 00 carvedilol 2020-08 Yes UT (Coreg) 1-28 Health 12.5 MG 00:00: tablet 00 carvedilol 2020-08 Yes UT (Coreg) 1-28 Health 12.5 MG 00:00: tablet 00 Osphena 60 2020-08 Yes 1{tbl} QD Take 1 UT MG tablet 0-28 tablet by Healt h 00:00: mouth 1 00 (one) time each day with breakfast. Osphena 60 2020-08 Yes 1{tbl} QD Take 1 UT MG tablet 0-28 tablet by Healt h 00:00: mouth 1 00 (one) time each day with breakfast. Osphena 60 2020-08 Yes 1{tbl} QD Take 1 UT MG tablet 0-28 tablet by Healt h 00:00: mouth 1 00 (one) time each day with breakfast. amitriptyli Yes 10mg Take 10 mg Univers ne 10 mg 8-11 by mouth ity of tablet 16:03: at [place] [address] bedtime. Medical Branch vancomycin Yes 125mg Take 125 Un ramandeep (VANCOCIN 8-11 mg by ity of HCL) 125 mg 16:03: mouth 4 Gigi as capsule 37 (four) Medical times Branch daily. pantoprazol Yes 40mg Take 40 mg Univers e 40 mg EC 8-11 by mouth ity o f tablet 16:03: daily. [address] Branch amLODIPine Yes 5mg Take 5 mg Un ramandeep 5 mg tablet 8-11 by mouth ity of 16:03: daily. [place] [address] Medical Branch betamethaso Yes Apply to Un ramandeep ne 8-11 area(s) 2 ity of dipropionat 16:03: (two) [place] e 0.05 % 37 times Medical cream daily. Branch glucosamine Yes Take by Uni vers -chondroitn 8-11 mouth 2 ity o f sulf.Na 16:03: (two) [place] 750-400 mg 37 times Medical Cmpk daily. Branch levETIRAcet Yes Take by Uni vers am 250 mg 8-11 mouth ity of TbSu 16:03: daily. [place] [address] Medical Branch LEVOFLOXACI Yes 125mg Take 125 U nivers N ORAL 8-11 mg by ity of 16:03: mouth [place] [address] daily. Medical Empty 1 Branch capsule into irrigation system daily melatonin 3 Yes Take by Uni vers mg Cap 8-11 mouth at ity of 16:03: bedtime. [place] [address] Medical Branch mv-mn/B.coa Yes Take by Uni vers g/B.subtili 8-11 mouth 2 ity o f s/inulin 16:03: (two) [place] (CULTURELLE 37 times Medical PROBIOTIC-M daily. Branch ULTIVIT ORAL) GLUTATHIONE Yes 2{capsu Take 2 U nivers ORAL 8-11 le} capsules ity of 16:03: by mouth 2 [place] 37 (two) Medical times Branch daily. ospemifene Yes Take by [facility] ers (OSPHENA) 8-11 mouth ity of 60 mg 16:03: every [place] tablet 37 other day. Medical For Branch vaginal dryness coenzyme Yes 100mg Take 100 [facility] ers Q10 (CO 8-11 mg by ity of Q-10) 100 16:03: mouth [place] mg softgel 37 daily. Medical Branch methocarbam Yes 500mg Take 500 U nivers oL 8-11 mg by ity of (ROBAXIN) 16:03: mouth 3 [place] 500 mg 37 (three) Medical tablet times Branch daily as needed. SPIRONOLACT Yes 50mg Take 50 mg Univers ONE ORAL 8-11 by mouth ity of 16:03: daily. [place] [address] Medical Branch albuterol Yes 2{puff} Inhale 2 U nivers (VENTOLIN 8-11 Puffs ity of HFA) 90 16:03: every 6 [place] mcg/actuati 37 (six) Medical on inhaler hours as Branc h needed for Wheezing or Shortness of Breath. acetaminoph Yes 1300mg Take 1,300 Univers en (TYLENOL 8-11 mg by ity of ARTHRITIS 16:03: mouth [place] PAIN) 650 37 every 8 Medical mg CR (eight) Branch tablet hours as needed for Pain. ZINC Yes 200mg Take 200 Univers SULFATE 8-11 mg by ity of ORAL 16:03: mouth at [place] [address] bedtime. Medical Branch amitriptyli Yes 10mg Take 10 mg Univers ne 10 mg 8-11 by mouth ity of tablet 16:03: at [place] [address] bedtime. Medical Branch vancomycin Yes 125mg Take 125 Un ramandeep (VANCOCIN 8-11 mg by ity of HCL) 125 mg 16:03: mouth 4 [place] as capsule 37 (four) Medical times Branch daily. pantoprazol Yes 40mg Take 40 mg Univers e 40 mg EC 811 by mouth ity o f tablet 16:03: daily. [place] [address] Medical Branch amLODIPine Yes 5mg Take 5 mg Un ramandeep 5 mg tablet 8-11 by mouth ity of 16:03: daily. [place] [address] Medical Branch betamethaso Yes Apply to Un ramandeep ne 8-11 area(s) 2 ity of dipropionat 16:03: (two) [place] e 0.05 % 37 times Medical cream daily. Branch glucosamine Yes Take by Uni vers -chondroitn 8-11 mouth 2 ity o f sulf.Na 16:03: (two) [place] 750-400 mg 37 times Medical Cmpk daily. Branch levETIRAcet Yes Take by Uni vers am 250 mg 8-11 mouth ity of TbSu 16:03: daily. [place] [address] Medical Branch LEVOFLOXACI Yes 125mg Take 125 U nivers N ORAL 8-11 mg by ity of 16:03: mouth [place] 37 daily. Medical Empty 1 Branch capsule into irrigation system daily melatonin 3 Yes Take by Uni vers mg Cap 8-11 mouth at ity of 16:03: bedtime. [address] Branch mv-mn/B.coa Yes Take by Uni vers g/B.subtili 8-11 mouth 2 ity o f s/inulin 16:03: (two) [place] (CULTURELLE 37 times Medical PROBIOTIC-M daily. Branch ULTIVIT ORAL) GLUTATHIONE Yes 2{capsu Take 2 U nivers ORAL 8-11 le} capsules ity of 16:03: by mouth 2 [place] [address] (two) Medical times Branch daily. ospemifene Yes Take by [facility] ers (OSPHENA) 8-11 mouth ity of 60 mg 16:03: every [place] tablet 37 other day. Medical For Branch vaginal dryness coenzyme Yes 100mg Take 100 Univ ers Q10 (CO 8-11 mg by ity of Q-10) 100 16:03: mouth [place] mg softgel 37 daily. Medical Branch methocarbam Yes 500mg Take 500 U nivers oL 8-11 mg by ity of (ROBAXIN) 16:03: mouth 3 [place] 500 mg 37 (three) Medical tablet times Branch daily as needed. SPIRONOLACT Yes 50mg Take 50 mg Univers ONE ORAL 8-11 by mouth ity of 16:03: daily. [place] [address] Medical Branch albuterol Yes 2{puff} Inhale 2 U nivers (VENTOLIN 8-11 Puffs ity of HFA) 90 16:03: every 6 [place] mcg/actuati 37 (six) Medical on inhaler hours as Branc h needed for Wheezing or Shortness of Breath. acetaminoph Yes 1300mg Take 1,300 Univers en (TYLENOL 8-11 mg by ity of ARTHRITIS 16:03: mouth [place] PAIN) 650 37 every 8 Medical mg CR (eight) Branch tablet hours as needed for Pain. ZINC Yes 200mg Take 200 Univers SULFATE 8-11 mg by ity of ORAL 16:03: mouth at [place] [address] bedtime. Medical Branch amitriptyli Yes 10mg Take 10 mg Univers ne 10 mg 8-11 by mouth ity of tablet 16:03: at [place] [address] bedtime. Medical Branch vancomycin Yes 125mg Take 125 Un ramandeep (VANCOCIN 8-11 mg by ity of HCL) 125 mg 16:03: mouth 4 [place] as capsule 37 (four) Medical times Branch daily. pantoprazol Yes 40mg Take 40 mg Univers e 40 mg EC 8-11 by mouth ity o f tablet 16:03: daily. [place] [address] Medical Branch amLODIPine Yes 5mg Take 5 mg Un ramandeep 5 mg tablet 8-11 by mouth ity of 16:03: daily. [place] [address] Medical Branch betamethaso Yes Apply to Un ramandeep ne 8-11 area(s) 2 ity of dipropionat 16:03: (two) [place] e 0.05 % 37 times Medical cream daily. Branch glucosamine Yes Take by Uni vers -chondroitn 8-11 mouth 2 ity o f sulf.Na 16:03: (two) [place] 750-400 mg 37 times Medical Cmpk daily. Branch levETIRAcet Yes Take by Uni vers am 250 mg 8-11 mouth ity of TbSu 16:03: daily. [place] [address] Medical Branch LEVOFLOXACI Yes 125mg Take 125 U nivers N ORAL 8-11 mg by ity of 16:03: mouth [place] 37 daily. Medical Empty 1 Branch capsule into irrigation system daily melatonin 3 Yes Take by Uni vers mg Cap 8-11 mouth at ity of 16:03: bedtime. [place] [address] Medical Branch mv-mn/B.coa Yes Take by Uni vers g/B.subtili 8-11 mouth 2 ity o f s/inulin 16:03: (two) [place] (CULTURELLE 37 times Medical PROBIOTIC-M daily. Branch ULTIVIT ORAL) GLUTATHIONE Yes 2{capsu Take 2 U nivers ORAL 8-11 le} capsules ity of 16:03: by mouth 2 [place] 37 (two) Medical times Branch daily. ospemifene Yes Take by [facility] ers (OSPHENA) 8-11 mouth ity of 60 mg 16:03: every [place] tablet 37 other day. Medical For Branch vaginal dryness coenzyme Yes 100mg Take 100 [facility] ers Q10 (CO 8-11 mg by ity of Q-10) 100 16:03: mouth [place] mg softgel 37 daily. Medical Branch methocarbam Yes 500mg Take 500 U nivers oL 8-11 mg by ity of (ROBAXIN) 16:03: mouth 3 [place] 500 mg 37 (three) Medical tablet times Branch daily as needed. SPIRONOLACT Yes 50mg Take 50 mg Univers ONE ORAL 8-11 by mouth ity of 16:03: daily. [place] [address] Medical Branch albuterol Yes 2{puff} Inhale 2 U nivers (VENTOLIN 8-11 Puffs ity of HFA) 90 16:03: every 6 [place] mcg/actuati 37 (six) Medical on inhaler hours as Branc h needed for Wheezing or Shortness of Breath. acetaminoph Yes 1300mg Take 1,300 Univers en (TYLENOL 8-11 mg by ity of ARTHRITIS 16:03: mouth [place] PAIN) 650 37 every 8 Medical mg CR (eight) Branch tablet hours as needed for Pain. ZINC Yes 200mg Take 200 Univers SULFATE 8-11 mg by ity of ORAL 16:03: mouth at [place] [address] bedtime. Medical Branch simethicone Yes PRN, Univer s (GAS RELIEF 03-13 Starting ity of (SIMETHICON 15:03: Wed [place] E)) 40 00 03/13/21 at Medical mg/0.6 mL 1003, Branch drops Until Discontinu ed, Routine, Intra-op simethicone 2020- No PRN, Unive rs (GAS RELIEF 803-13 Starting ity of (SIMETHICON 15:03: 18:03 Wed [place] E)) 40 00 :38 03/13/21 at Medical mg/0.6 mL 1003, Branch drops Until Thu03/13/21 at 1303, Routine, Intra-op lactated 2020- No 1000mL at 42 Unive rs ringers IV 8- 08-11 mL/hr, ity of infusion 13:30: 13:32 1,000 mL, Gigi as 1,000 mL 00 :00 IV Medical Infusion, Branch ONCE, 1 dose, Thu03/13/21 at 0830, Routine, DSU Pre-op lactated 2020- No 1000mL at 42 Unive rs ringers IV 8 08-11 mL/hr, ity of infusion 13:30: 13:32 1,000 mL, Gigi as 1,000 mL 00 :00 IV Medical Infusion, Branch ONCE, 1 dose, Thu03/13/21 at 0830, Routine, DSU Pre-op albuterol Yes 2{puff} Inhale 2 U nivers (VENTOLIN 8-10 Puffs ity of HFA) 90 15:13: every 6 [place] mcg/actuati 44 (six) Medical on inhaler hours as Branc h needed for Wheezing or Shortness of Breath. acetaminoph 0 Yes 1300mg Take 1,300 Univers en (TYLENOL 8-10 mg by ity of ARTHRITIS 15:13: mouth [place] PAIN) 650 44 every 8 Medical mg CR (eight) Branch tablet hours as needed for Pain. ZINC 0 Yes 200mg Take 200 Univers SULFATE 8-10 mg by ity of ORAL 15:13: mouth at [place] 44 bedtime. Medical Branch methocarbam Yes 500mg Take 500 U nivers oL 8-10 mg by ity of (ROBAXIN) 15:10: mouth 3 [place] 500 mg 24 (three) Medical tablet times Branch daily as needed. SPIRONOLACT Yes 50mg Take 50 mg Univers ONE ORAL 8-10 by mouth ity of 15:10: daily. [place] 24 Medical Branch levETIRAcet Yes Take by Uni vers am 250 mg 8-10 mouth ity of TbSu 15:10: daily. [place] 23 Medical Branch LEVOFLOXACI Yes 125mg Take 125 U nivers N ORAL 8-10 mg by ity of 15:10: mouth [place] 23 daily. Medical Empty 1 Branch capsule into irrigation system daily melatonin 3 Yes Take by Uni vers mg Cap 8-10 mouth at ity of 15:10: bedtime. [place] [address] Medical Branch mv-mn/B.coa Yes Take by Uni vers g/B.subtili 8-10 mouth 2 ity o f s/inulin 15:10: (two) [place] (CULTURELLE 23 times Medical PROBIOTIC-M daily. Branch ULTIVIT ORAL) GLUTATHIONE Yes 2{capsu Take 2 U nivers ORAL 8-10 le} capsules ity of 15:10: by mouth 2 [place] 23 (two) Medical times Branch daily. ospemifene Yes Take by [facility] ers (OSPHENA) 8-10 mouth ity of 60 mg 15:10: every [place] tablet 23 other day. Medical For Branch vaginal dryness coenzyme Yes 100mg Take 100 [facility] ers Q10 (CO 8-10 mg by ity of Q-10) 100 15:10: mouth [place] mg softgel 23 daily. Medical Branch betamethaso Yes Apply to Un ramandeep ne 8-10 area(s) 2 ity of dipropionat 15:10: (two) [place] e 0.05 % 22 times Medical cream daily. Branch glucosamine Yes Take by Uni vers -chondroitn 8-10 mouth 2 ity o f sulf.Na 15:10: (two) [place] 750-400 mg 22 times Medical Cmpk daily. Branch amLODIPine Yes 5mg Take 5 mg Un ramandeep 5 mg tablet 8-10 by mouth ity of 14:57: daily. [place] [address] Medical Branch amitriptyli Yes 10mg Take 10 mg Univers ne 10 mg 8-10 by mouth ity of tablet 13:25: at [place] [address] bedtime. Medical Branch vancomycin Yes 125mg Take 125 Un ramandeep (VANCOCIN 8-10 mg by ity of HCL) 125 mg 13:25: mouth 4 [place] as capsule 41 (four) Medical times Branch daily. pantoprazol Yes 40mg Take 40 mg Univers e 40 mg EC 8-10 by mouth ity o f tablet 13:25: daily. [place] [address] Medical Branch metroNIDAZO 2020- No 500mg Take 500 Univers LE (FLAGYL) 8-10 08-21 mg by ity of 500 mg 00:00: 04:59 mouth [place] tablet 00 :00 every 12 Medical (twelve) Branch hours. metroNIDAZO 2020- No 500mg Take 500 Univers LE (FLAGYL) 8-10 08-21 mg by ity of 500 mg 00:00: 04:59 mouth [place] tablet 00 :00 every 12 Medical (twelve) Branch hours. metroNIDAZO 2020- 202- No 500mg Take 500 Univers LE (FLAGYL) 8-10 08-21 mg by ity of 500 mg 00:00: 04:59 mouth [place] tablet 00 :00 every 12 Medical (twelve) Branch hours. metroNIDAZO 2020- No 500mg Take 500 Univers LE (FLAGYL) 8-10 08-21 mg by ity of 500 mg 00:00: 04:59 mouth [place] tablet 00 :00 every 12 Medical (twelve) Branch hours. amitriptyli Yes 10 mg = 1 M emoria ne 10 mg 7-27 tab, PO, l oral tablet 16:17: Bedtime, # [place] 00 30 tab, 3 Refill(s), Pharmacy: [id number], 154.94, cm, 02/26/21 10:34:00 CDT, Height, 70, kg, 02/26/21 10:34:00 CDT, Weight Levetiracet Yes 250 mg = 1 Memoria am 250 MG 6-18 tab, PO, l Oral Tablet 15:17: Bedtime, # [place] 00 30 tab, 3 Refill(s), Pharmacy: [id number], 152.4, cm, 01/18/21 9:55:00 CDT, Height, 71.818, kg, 01/18/21 9:55:00 CDT, Weight spironolact 0 Yes UT one 6-14 Health (Aldactone) 00:00: 50 MG 00 tablet clopidogrel 0 Yes UT (Plavix) 75 6-14 Health MG tablet 00:00: 00 spironolact 2020-0 Yes UT one 6-14 Health (Aldactone) 00:00: 50 MG 00 tablet clopidogrel 0 Yes UT (Plavix) 75 6-14 Health MG tablet 00:00: 00 spironolact 2020-0 Yes UT one 6-14 Health (Aldactone) 00:00: 50 MG 00 tablet clopidogrel 2020-0 Yes UT (Plavix) 75 6-14 Health MG tablet 00:00: 00 Levetiracet Yes 250 mg = 1 Memoria am 250 MG 3-30 tab, PO, l Oral Tablet 19:19: BID, # 60 [place] 00 tab, 3 Refill(s), Pharmacy: [id number], 154.94, cm, 10/30/20 13:47:00 CDT, Height, 71.364, kg, 10/30/20 13:47:00 CDT, Weight Levofloxaci 0 Yes Q24H, 0 Mem oria n 3-30 Refill(s) l 19:01: [place] 00 Levetiracet 0 No 250 mg = 1 Memoria am 250 MG 3-30 tab, PO, l Oral Tablet 19:01: BID, 0 Herm cyndi 00 Refill(s) Lorazepam 2019-08 No See Memoria 0.5 MG Oral 0-21 Instructio l Tablet 22:48: ns, Take 1 Marcella nn [Ativan] 00 tab po 1 hour prior to MRI, may repeat q 15 min. if still anxious, # 5 tab, 0 Refill(s), Pharmacy: [id number], 152.4, cm, 05/16/20 11:29:00 CDT, Height, 65, kg, 05/16/20 11:29:00 CDT, Weight Hydrochloro 2019-08 Yes 1 tab, PO, Memoria thiazide 25 0-14 Daily, 0 l MG / 16:34: Refill(s) [place] Losartan 00 Potassium 100 MG Oral Tablet carvedilol 2019-08 Yes 12.5 mg = Me moria 12.5 mg 0-14 1 tab, PO, l oral tablet 16:34: BID, # 180 [place] 00 tab, 0 Refill(s) amLODIPine 2019-08 Yes 5 mg = 1 Mem oria 5 mg oral 0-14 tab, PO, l tablet 16:34: BID, 0 [place] 00 Refill(s) guanFACINE 2019-08 Yes 3 mg = 1 Mem oria 3 mg oral 0-14 tab, PO, l tablet, 16:34: QAM, 0 Billy extended 00 Refill(s) release spironolact 2019-08 Yes 50 mg = 1 M emoria one 50 mg 0-14 tab, PO, l oral tablet 16:34: Daily, # He rmann 00 90 tab, 1 Refill(s) atorvastati 2019-08 Yes 10 mg = 1 M emoria n 10 mg 0-14 tab, PO, l oral tablet 16:34: Daily, 0 He rmann 00 Refill(s) clopidogrel 2019-08 Yes 75 mg = 1 M emoria 75 mg oral 0-14 tab, PO, l tablet 16:34: Daily, 0 Billy 00 Refill(s) Naltrexone 2019-08 Yes 0 Memoria 0-14 Refill(s) l 16:34: [place] 00 sertraline 2019-08 Yes 50 mg = 1 Me moria 50 mg oral 0-14 tab, PO, l tablet 16:34: Daily, 0 Billy 00 Refill(s) pantoprazol 2019-08 Yes 40 mg = 1 M emoria e 40 mg 0-14 tab, PO, l oral 16:34: Daily, 0 Billy enteric 00 Refill(s) coated tablet Ventolin 2019-08 Yes 2 puff, Memori a HFA 90 0-14 INHALATION l mcg/inh 16:34: , Q6H, 0 Adi n inhalation 00 Refill(s) aerosol with adapter Betamethaso 2019-08 Yes TOP, BID, M emoria ne 0.5 0-14 0 l MG/ML 16:34: Refill(s) [place] Topical 00 Cream clopidogreL 2019-0 Yes Univer s 75 mg 6-15 ity of tablet 00:00: [place] [facility] clopidogreL 2019-0 Yes Univer s 75 mg 6-15 ity of tablet 00:00: [place] [address] Medical Branch clopidogreL 2019-0 Yes Univer s 75 mg 6-15 ity of tablet 00:00: [place] [address] Medical Branch clopidogreL 2019-0 Yes Univer s 75 mg 6-15 ity of tablet 00:00: [address] Branch clopidogreL 2019-0 Yes Method i (PLAVIX) 75 6-15 st mg tablet 00:00: [facility] 00 l famotidine Yes Univers 20 mg 5-05 ity of tablet 00:00: [place] [address] Medical Branch famotidine Yes Univers 20 mg 5-05 ity of tablet 00:00: [place] [address] Medical Branch famotidine Yes Univers 20 mg 5-05 ity of tablet 00:00: [address] Branch famotidine Yes Univers 20 mg 5-05 ity of tablet 00:00: [address] Branch famotidine Yes Methodi (PEPCID) 20 5-05 st MG tablet 00:00: [facility] 00 l SERTraline Yes Univers 50 mg 4-15 ity of tablet 00:00: [place] [facility] SERTraline 0 Yes Univers 50 mg 4-15 ity of tablet 00:00: [place] [address] Medical Branch SERTraline 2019-0 Yes Univers 50 mg 4-15 ity of tablet 00:00: [place] [address] Medical Branch SERTraline 0 Yes Univers 50 mg 4-15 ity of tablet 00:00: [place] [address] Medical Branch sertraline Yes Methodi (ZOLOFT) 25 4-15 st MG tablet 00:00: [facility] 00 l carvediloL 2019-0 Yes 12.5mg Take 12.5 Univers 25 mg 4-01 mg by ity of tablet 00:00: mouth 2 [place] 00 (two) Medical times Branch daily with meals. losartan-hy 0 Yes Univer s drochloroth 4-01 ity of iazide 00:00: [place] 100-25 00 Medical per tablet Branch carvediloL 2019-0 Yes 12.5mg Take 12.5 Univers 25 mg 4-01 mg by ity of tablet 00:00: mouth 2 [place] (two) Medical times Branch daily with meals. losartan-hy 2020-0 Yes Univer s drochloroth 4-01 ity of iazide 00:00: [place] 100-25 mg 00 Medical per tablet Branch carvediloL 2020-0 Yes 25mg 25 mg 2 Univ ers 25 mg 4-01 (two) ity of tablet 00:00: times [place] 00 daily with Medical meals. Branch losartan-hy 2020-0 Yes Univer s drochloroth 4-01 ity of iazide 00:00: [place] 100-25 mg 00 Medical per tablet Branch carvediloL 2020-0 Yes 12.5mg Take 12.5 Univers 25 mg 4-01 mg by ity of tablet 00:00: mouth 2 [place] (two) Medical times Branch daily with meals. losartan-hy 2020-0 Yes Univer s drochloroth 4-01 ity of iazide 00:00: [place] 100-25 mg 00 Medical per tablet Branch losartan-hy 2020-0 Yes Method i drochloroth 4-01 st iazide 00:00: Hospita (HYZAAR) 00 l 100-25 mg per tablet carvediloL 2019-0 Yes Methodi (COREG) 25 4-01 st MG tablet 00:00: Hospita 00 l atorvastati 2020-0 Yes Take by Uni vers n 80 mg 3-08 mouth at ity of tablet 00:00: bedtime. [place] [facility] atorvastati 2020-0 Yes Take by Uni vers n 80 mg 3-08 mouth at ity of tablet 00:00: bedtime. [place] [facility] atorvastati 2020-0 Yes Take by Uni vers n 80 mg 3-08 mouth at ity of tablet 00:00: bedtime. [place] [facility] atorvastati 2020-0 Yes Take by Uni vers n 80 mg 3-08 mouth at ity of tablet 00:00: bedtime. [place] [address] Medical Branch atorvastati 2020-0 Yes Method i n (LIPITOR) 3-08 st 10 mg 00:00: Hospita tablet 00 l albuterol 2018-0 Yes Q.5D Inhale 2 Meth natasha sulfate 3-20 (two) st (VENTOLIN 12:27: times a Hospi ta HFA INHL) 54 day. l acetaminoph Yes Take by Met gustavo en (TYLENOL 3-[address] ARTHRITIS 12:27: Hospita ORAL) 54 l omega-3s/dh 0 Yes Take by Met hodi a/epa/fish 3-[address] oil (OMEGA 12:27: Hospita 3 ORAL) 54 l calcium 0 Yes Take by Methodi carb,gluc/m 3-[address] ag ox,gluc 12:27: Hospita (CALCIUM 54 l MAGNESIUM ORAL) ubidecareno Yes Take by Met gustavo ne (CO Q-10 3-[address] ORAL) 12:27: Hospita 54 l ospemifene 2017-08 Yes 1{tbl} Q2D Take 1 Met hodi (OSPHENA) 0-[address] 60 mg 00:00: mouth Hospita tablet 00 every l other day. betamethaso Yes Method i ne 9-04 st dipropionat 00:00: Hospit a e 00 l (DIPROLENE) 0.05 % ointment amLODIPine Yes 10mg QD Take 10 mg M ethodi (NORVASC) 7-[address] 10 mg 00:00: every Hospita tablet 00 evening. l atorvastati Yes Method i n (LIPITOR) 7-13 st 10 MG 00:00: Hospita tablet 00 l Immunizations Ordered Filled Immunization Date Status Comments [facility] e Immunization Name Name Zoster, Recombinant 2021-07-15 [facility]:00 Zoster, Recombinant 2021-07-15 [facility]:00 Zoster, Recombinant 2021-07-15 [facility]:00 Influenza, 2021-06-03 [facility] injectable, 00:00:00 quadrivalent Influenza, 2021-06-03 [facility] injectable, 00:00:00 quadrivalent Influenza, 2021-06-03 Completed [facility] injectable, 00:00:00 quadrivalent SARS-COV-2 COVID-19 2020-11-08 Completed Unive rsity of PFIZER VACCINE 00:00:00 [facility] SARS-COV-2 COVID-19 2020-11-08 Completed Unive rsity of PFIZER VACCINE 00:00:00 [facility] SARS-COV-2 COVID-19 2020-11-08 Completed Unive rsity of PFIZER VACCINE 00:00:00 [facility] SARS-COV-2 COVID-19 2020-11-08 Completed Unive rsity of PFIZER VACCINE 00:00:00 [facility] SARS-COV-2 COVID-19 2020-10-18 Completed Unive rsity of PFIZER VACCINE 00:00:00 [facility] SARS-COV-2 COVID-19 2020-10-18 Completed Unive rsity of PFIZER VACCINE 00:00:00 [facility] SARS-COV-2 COVID-19 2020-10-18 Completed Unive rsity of PFIZER VACCINE 00:00:00 [facility] SARS-COV-2 COVID-19 2020-10-18 Completed Unive rsity of PFIZER VACCINE 00:00:00 [facility] Vital Signs Vital Name Observation Time Observation Value Comments Source Systolic blood 2022-03-26 18:14:00 127 mm[Hg] [facility] Diastolic blood 2022-03-26 18:14:00 68 mm[Hg] [facility] Heart rate 2022-03-26 18:14:00 61 /[facility] temperature 2022-03-26 18:14:00 35.72 Pura [facility] Respiratory rate 2022-03-26 18:14:00 18 /min [facility] Body height 2022-03-26 18:14:00 154.9 cm [facility] Body weight 2022-03-26 18:14:00 70.852 kg [facility] BMI 2022-03-26 18:14:00 29.51 kg/m2 [facility] Oxygen saturation in 2022-03-26 18:14:00 94 /min [facility] Arterial blood by Pulse oximetry Systolic blood 2021-03-13 15:21:00 120 mm[Hg] Univer sity of pressure [facility] Diastolic blood 2021-03-13 15:21:00 62 mm[Hg] Unive rsity of pressure [facility] Heart rate 2021-03-13 15:21:00 57 /min Universi ty of [facility] Respiratory rate 2021-03-13 15:21:00 23 /min Univ ersity of [facility] Oxygen saturation in 2021-03-13 15:21:00 97 /min University of Arterial blood by [facility] Pulse oximetry Branch Body temperature 2021-03-13 14:55:00 36.33 Pura [facility] ersity of [facility] Body height 2021-03-12 13:15:00 152.4 cm Universi ty of [facility] Body weight 2021-03-12 13:15:00 68.04 kg Universi ty of [place] [facility] BMI 2021-03-12 13:15:00 29.29 kg/m2 Universi ty of [facility] Systolic blood 2021-03-13 15:03:00 109 mm[Hg] Univer sity of pressure [facility] Diastolic blood 2021-03-13 15:03:00 51 mm[Hg] Unive rsity of pressure [facility] Heart rate 2021-03-13 14:55:00 50 /min Universi ty of [facility] Body temperature 2021-03-13 14:55:00 36.33 Pura [facility] Respiratory rate 2021-03-13 14:55:00 21 /min [facility] of [facility] Oxygen saturation in 2021-03-13 14:55:00 98 /min University of Arterial blood by [facility] Pulse oximetry Branch Body height 2021-03-12 13:15:00 152.4 cm Universi ty of [place] [facility] [place] Body weight 2021-03-12 13:15:00 68.04 kg Universi ty of [facility] BMI 2021-03-12 13:15:00 29.29 kg/m2 Universi ty of [facility] Branch Systolic (mm Hg) 2021-02-26 15:24:00 Luke rial [place] Diastolic (mm Hg) 2021-02-26 15:24:00 Mem orial Billy Heart Rate 2021-02-26 15:24:00 [facility] [place] Respitory Rate 2021-02-26 15:24:00 Memori al [place] Height 2021-02-26 15:24:00 154.94 cm [facility] [place] Weight 2021-02-26 15:24:00 [facility] [place] BMI Calculated 2021-02-26 15:24:00 Memori al [place] Systolic (mm Hg) 2021-01-18 14:55:00 Luke rial [place] Diastolic (mm Hg) 2021-01-18 14:55:00 Mem orial [place] Heart Rate 2021-01-18 14:55:00 [facility] [place] Respitory Rate 2021-01-18 14:55:00 Memori al Billy Height 2021-01-18 14:55:00 152.4 cm [facility] Billy Weight 2021-01-18 14:55:00 [facility] [place] BMI Calculated 2021-01-18 14:55:00 Memori al [place] Systolic (mm Hg) 2020-10-30 18:47:00 Luke rial [place] Diastolic (mm Hg) 2020-10-30 18:47:00 Mem orial [place] Heart Rate 2020-10-30 18:47:00 [facility] [place] Respitory Rate 2020-10-30 18:47:00 Memori al [place] Height 2020-10-30 18:47:00 154.94 cm Memorial [place] Weight 2020-10-30 18:47:00 [facility] [place] BMI Calculated 2020-10-30 18:47:00 Memori al [place] Systolic (mm Hg) 2020-06-13 16:58:00 Luke rial [place] Diastolic (mm Hg) 2020-06-13 16:58:00 Mem orial [place] Heart Rate 2020-06-13 16:58:00 [facility] [place] Respitory Rate 2020-06-13 16:58:00 Memori al [place] Height 2020-06-13 16:58:00 152.4 cm [facility] [place] Weight 2020-06-13 16:58:00 [facility] [place] BMI Calculated 2020-06-13 16:58:00 Memori al [place] Systolic (mm Hg) 2020-05-16 16:29:00 Luke rial [place] Diastolic (mm Hg) 2020-05-16 16:29:00 Mem orial [place] Heart Rate 2020-05-16 16:29:00 [facility] [place] Respitory Rate 2020-05-16 16:29:00 Memori al [place] Height 2020-05-16 16:29:00 152.4 cm [facility] [place] Weight 2020-05-16 16:29:00 [facility] [place] BMI Calculated 2020-05-16 16:29:00 Memori al [place] Procedures Procedure Date / Time Performing Source Performed Clinician EGD (ENDO) 2021-03-13 [facility] 14:37:38 [place] [facility] EGD (ENDO) 2021-03-13 [facility] 14:37:38 [place] [facility] ESOPHAGOGASTRODUODENOSCOPY 2021-03-13 Lila Hinkle rsity of 14:25:00 Raul Chan [place] [facility] DAY SURGERY - ADC 2021-03-13 [facility] of 05:01:00 Unassigned, No [place] [facility] CONSENT/REFUSAL FOR DIAGNOSIS AND 2021-03-12 Doctor [facility] TREATMENT 15:43:58 Unassigned, No [place] [facility] CONSENT/REFUSAL FOR DIAGNOSIS AND 2021-03-12 Doctor [facility] TREATMENT 15:43:58 Unassigned, No [place] [facility] ASSIGNMENT OF BENEFITS 2021-03-12 Doctor Universit y of 15:43:40 Unassigned, No [place] [facility] ASSIGNMENT OF BENEFITS 2021-03-12 Doctor Universit y of 15:43:40 Unassigned, No [place] [facility] CONSENT/REFUSAL FOR DIAGNOSIS AND 2021-03-12 Doctor [facility] TREATMENT 15:43:13 Unassigned, No [place] [facility] CONSENT/REFUSAL FOR DIAGNOSIS AND 2021-03-12 Doctor [facility] TREATMENT 15:43:13 Unassigned, No [place] [facility] ASSIGNMENT OF BENEFITS 2021-03-12 Doctor Universit y of 15:42:54 Unassigned, No [place] [facility] ASSIGNMENT OF BENEFITS 2021-03-12 Doctor Universit y of 15:42:54 Unassigned, No [place] [facility] EXTERNAL PROVIDER RECORDS 2021-03-05 Doctor Univer sity of 05:01:00 Unassigned, No [place] [facility] EXTERNAL PROVIDER RECORDS 2021-03-05 Doctor Univer sity of 05:01:00 Unassigned, No [place] [facility] US ABDOMEN COMPLETE 2020-07-24 [facility] o f 19:38:29 Raul Chan [place] [facility] ASSIGNMENT OF BENEFITS 2020-07-24 Doctor Universit y of 18:35:51 Unassigned, No [place] [facility] Plan of Care Planned Activity Planned Date Details Comments Source Future Scheduled 2022-05-22 HEPATITIS B VACCINES [facility] Test 12:11:11 (1 of 3 - 3-dose series) [code = HEPATITIS B VACCINES (1 of 3 - 3-dose series)] Future Scheduled 2022-05-22 COVID-19 VACCINE (#1) [facility] Test 12:11:11 [code = COVID-19 VACCINE (#1)] Future Scheduled 2022-05-[address] [facility] Test 12:11:11 (procedure) [code = 300491458] Future Scheduled 2022-05-22 BREAST CANCER [facility] Test 12:11:11 SCREENING [code = BREAST CANCER SCREENING] Future Scheduled 2022-05-[address] [facility] Test 12:11:11 [code = COLONOSCOPY SCREENING] Future Scheduled 2022-05-22 SHINGLES VACCINES (1 Met [facility] Test 12:11:11 of 2) [code = SHINGLES VACCINES (1 of 2)] Future Scheduled 2022-05-22 65+ [facility] 12:11:11 VACCINE (1 - PCV) [code = 65+ PNEUMOCOCCAL VACCINE (1 - PCV)] Future Scheduled 2022-05-22 INFLUENZA VACCINE Method [facility] Test 12:11:11 [code = INFLUENZA VACCINE] Encounters Start End Encounter Admission Attending Care Care Encounter Source Date/Time Date/Time Type Type Clinicians Facility Department ID 2021-10-04 Outpatient JLUIS, [facility] [id number] [place] 08:11:26 [facility] 2021-06-03 Outpatient R ANTHONY [facility] [id number] Univers 13:13:12 RAUL Heath [facility] 2022-08-13 2022-08-13 Outpatient MTAILDE-AVENDA [facility] [id number] [place] 14:00:00 14:00:00 JAYDEN LOPEZ [facility] 2022-05-22 2022-05-22 Outpatient LINWOOD, [facility] [id number] [place] 09:30:00 10:45:16 [facility] 2022-05-14 2022-05-14 Telemedici Matilde-Avenda [facility] 6410 1.2.840.11 [id number] [place] 15:00:00 16:16:41 ne Jayden lopez [id number] [facility] 9.2.7.2.686 [id number] 2022-04-23 2022-04-[address] MATILDE-AV[address]DA [facility] [id number] [place] 13:00:00 13:00:00 JAYDEN LOPEZ [facility] 2022-04-11 2022-04-11 Outpatient MATILDE-AVENDA [facility] PUL [id number] [facility] 08:10:00 23:59:00 JAYDEN LOPEZ 2022-03-26 2022-03-26 Office Matilde-Avenda UTP 6410 1.2.840.114 [id number] [place] 13:00:00 14:36:[address] [id number] Health 9.2.7.2.686 [id number] 2022-02-19 2022-02-19 Telephone Carolyn Parkinson [facility]TP 6400 1.2.84 0.114 [id number] [place] 00:00:00 00:00:00 Tesha, Carolyn PAL ST [id number] Health 9.2.7.2.686 [id number] 3 2022-02-06 2022-02-06 Office Jluis UTP 6400 1.2.840.114 [id number] [place] 15:30:00 16:55:[address] [id number] Health 9.2.7.2.686 [id number] 2021-12-19 2021-12-19 Office Jluis UTP 6400 1.2.840.114 [id number] [place] 13:45:00 15:18:[address] [id number] Health 9.2.7.2.686 [id number] 2021-11-20 2021-11-20 Office Jluis UTP 6400 1.2.840.114 [id number] [place] 14:30:00 14:51:[address] [id number] Health 9.2.7.2.686 [id number] 2021-10-30 2021-10-30 Office Jluis UTP 6400 1.2.840.114 [id number] [place] 14:00:00 14:59:[address] [id number] Health 9.2.7.2.686 [id number] 2021-09-18 2021-09-18 Office LUIS M Bazzi 6400 1.2.840.114 [id number] [place] 13:15:00 14:17:[address] [id number] Health 9.2.7.2.686 [id number] 2021-04-17 2021-04-17 Outpatient MHIE IE [id number] Memoria 13:00:00 13:00:00 07 Billy 2021-04-09 2021-04-09 Outpatient MHIE IE [id number] Memoria 13:30:00 13:30:00 09 [facility] 2021-03-13 2021-03-13 [facility] 1.2.840.114 [id number] Univers 08:04:00 10:55:00 Encounter Raul heath 350.1.13.10 [place].686 [place] [id number] [facility] 071 Branch 2021-03-13 2021-03-13 Surgery [facility] 1.2.840.114 [id number] Univers 09:35:00 10:09:00 Raul heath 350.1.13.10 [place] 4[place]2.7.2.686 [place] [id number] [facility] 020 Branch 2021-03-13 2021-03-13 Orders Doctor AYAKA 1.2.840.114 [id number] Univers 00:00:00 00:00:00 Only Unassigned, [place] 350.1.13.10 ity of [place] [facility] 4.2.7.2.686 Gigi as [id number] [facility] 009 Branch 2021-03-12 2021-03-12 Laboratory Only, Adc Test [facility] 1.2.840. 114 [id number] Univers 10:45:42 11:00:42 Only Raul Hinkle 350.1.1 3.10 ity of [place] 4.2.7.2.686 [facility] [id number] [address] 2021-03-12 2021-03-[address] [facility] [id number] Univers 10:45:00 10:45:00 RAUL Heath o feliciano [facility] 2021-02-26 2021-02-27 Outpatient nullFlavo MNA [id number] Memoria 15:15:00 04:59:59 r Neurology 08 l Biddle [place] 2021-01-18 2021-01-19 Outpatient nullFlavo MNA [id number] Memoria 14:45:00 04:59:59 r Neurology 06 l Biddle Billy 2021-01-11 2021-01-13 Outside nullFlavo MNA [id number] Memoria 15:49:47 04:59:59 Medical r Neurology 01 l Records Biddle Billy 2020-12-26 2020-12-28 Outside nullFlavo MNA [id number] Memoria 20:30:12 04:59:59 Medical r Neurology 00 l Records Biddle Billy 2020-12-12 2020-12-13 Outpatient nullFlavo MNA [id number] Memoria 21:15:00 04:59:59 r Neurology 05 l [place]iddle [place] 2020-12-12 2020-12-12 Ambulatory nullFlavo MNA [id number] Memoria 15:30:00 15:30:00 Pre-Reg r Neurology 04 l Shilpa Cervantes 2020-11-08 2020-11-08 Outpatient R LEO, [facility] [id number] Univers 14:50:00 14:50:00 LUDWIG [facility] 2020-10-30 2020-10-31 Outpatient nullFlavo MNA [id number] Memoria 18:30:00 04:59:59 r Neurology 03 l Biddle [place] 2020-10-18 2020-10-[address] [facility] [id number] Univers 14:50:00 14:50:00 [facility] 2020-09-13 2020-09-13 Ambulatory nullFlavo MNA [id number] Memoria 19:15:00 19:15:00 Pre-Reg r Neurology 02 l Shilpa [place] 2020-07-24 2020-07-24 [facility] 1.2.840.114 [id number] 12:42:07 23:59:00 Encounter eBrivikram Mai 350.1.13.10 [place] 4.2.7.2.686 [place] [id number] 2020-07-24 2020-07-24 [facility] 1.2.840.114 [id number] [facility] 12:42:07 23:59:00 Encounter e Raul Mai 350.1.13.10 [place] [id number] [address] 2020-07-24 2020-07-24 Outpatient R [facility] [id number] Univers 00:00:00 00:00:00 RAUL Heath o f [facility] 2020-07-24 2020-07-24 Orders Doctor AYAKA 1.2.840.114 [id number] 00:00:00 00:00:00 Only Unassigned, [place] 350.1.13.10 [place] [facility] 4.2.7.2.686 [id number] 2020-07-24 2020-07-24 Orders Doctor AYAKA 1.2.840.114 [id number] Univers 00:00:00 00:00:00 Only Unassigned, [place] 350.1.13.10 ity of [place] [facility] 4.2.7.2.686 Gigi as [id number] [place] [address] Branch 2020-06-13 2020-06-14 Outpatient nullFlavo MNA [id number] Memoria 16:30:00 05:59:59 r Neurology 01 l Biddleiwona Porterann 2020-05-16 2020-05-17 Outpatient nullFlavo MNA [id number] Memoria 16:00:00 04:59:59 r Neurology 00 l Shilpa Cervantes 2020-02-09 2020-02-09 Outpatient YANELY DUNLAP [facility] [id number] [place] 00:00:00 00:00:[address] 2020-02-01 2020-02-01 Outpatient YANELY DUNLAP [facility] [id number] [place] 00:00:00 00:00:[address] 2020-01-23 2020-01-23 Outpatient ELIOT [facility] [id number] [place] 00:00:00 00:00:00 AURELIANO [address] 2020-01-23 2020-01-23 Outpatient ELIOT [facility] [id number] [place] 00:00:00 00:00:00 AURELIANO [address] Results Test Description Test Time Test Comments Results Result [facility] e Comments US ABDOMEN 2020-07-04 HISTORY: ? Abdominal Univ ersity of COMPLETE 2 pain. TECHNIQUE: [facility] dicdc 19:41:33 Upper abdominal Branch organs were evaluated in multiple planes withthe patient in multiple different positions, without and with colorimaging. FINDINGS: Liver is 14.1 cm, spleen is 9.2 x 4.3 cm, right kidney is 9.7 x4.4 x 5.5 cm and left kidney is 10 x 4.9 x 4.8 cm in size. 10 mm cyst notedin the anterior upper pole of the right kidney. Cortex of both kidneysrange between 10 mm and 13 mm. No hydronephrosis, free fluid in the upperabdomen or aortic aneurysm detected. Visualized portions of the pancreasappear normal. Hepatic and portal venous system appear patent, withhepatopetal portal flow noted. Gallbladder appears to be of normal size and shape with no edema orthickening of the holliday. No gallstones detected. Common hepatic duct is 3.8mm. CONCLUSIONS: 10 mm cyst noted in the upper pole of the right kidney,otherwise normal study. [facility], Radiant Results Inft User - 07/24/2020 1:42 PM CSTHISTORY: Abdominal pain.TECHNIQUE: Upper abdominal organs were evaluated in multiple planes withthe patient in multiple different positions, without and with colorimaging.FINDING S: Liver is 14.1 cm, spleen is 9.2 x 4.3 cm, right kidney is 9.7 x4.4 x 5.5 cm and left kidney is 10 x 4.9 x 4.8 cm in size. 10 mm cyst notedin the anterior upper pole of the right kidney. Cortex of both kidneysrange between 10 mm and 13 mm. No hydronephrosis, free fluid in the upperabdomen or aortic aneurysm detected. Visualized portions of the pancreasappear normal. Hepatic and portal venous system appear patent, withhepatopetal portal flow noted.Gallbladder appears to be of normal size and shape with no edema orthickening of the holliday. No gallstones detected. Common hepatic duct is 3.8mm.CONCLUSIONS: 10 mm cyst noted in the upper pole of the right kidney,otherwise normal study.
[2022-05-25] MEDS ORDERED: MAGNES/ALUMIN/SIMET 30ML UCUP ONE (08:42)
[2022-05-25] MEDS ORDERED: LIDOCAINE VISCOUS 2% SOLN 15 ML UDC ONE (08:42)
[2022-05-25 09:06] LABS: Absolute Lymphocytes (CBC) 3.5 K/uL (0.7-4.9); Hematocrit 30.9 % (36.0-45.0); Lymphocytes % 31.8 % (15.3-44.8); MCV 85.2 fL (80-100); MPV 7.7 fL (7.6-11.3); RBC Red Blood Cell Count 3.63 M/uL (3.86-4.86)
[2022-05-25 09:20] LABS: Albumin 3.3 g/dL (3.4-5.0); Bilirubin Direct 0.1 mg/dL (0-0.2); Bilirubin Total 0.3 mg/dL (0.2-1.0); Potassium 4.7 mmol/L (3.5-5.1); Protein, Total 6.1 g/dL (6.4-8.2); Troponin High Sensitivity 9.2 pg/mL (<58.9)
--- NOTE | 2022-05-25 09:33 | RAD REPORT ---
EXAM DESCRIPTION: RAD - Chest Single View - 05/25/2022 9:25 am CLINICAL HISTORY: CHEST PAIN COMPARISON: 03/21/2022 FINDINGS: Lines: None. Lungs: No evidence of edema or pneumonia. Pleural: No significant pleural effusions or pneumothorax. Cardiac: The heart size is within normal limits. Mediastinum: Within normal limits. Bones: No acute fractures. Other: None IMPRESSION: No acute cardiopulmonary disease.
--- NOTE | 2022-05-25 11:47 | RAD REPORT ---
EXAM DESCRIPTION: CTAbdomen Pelvis Wo Contrast - 05/25/2022 11:20 am CLINICAL HISTORY: abd pain COMPARISON: <Comparisons> TECHNIQUE: CT of the abdomen and pelvis was performed without contrast. All CT scans are performed using dose optimization technique as appropriate and may include automated exposure control or mA/KV adjustment according to patient size. FINDINGS: Lower chest: No acute abnormality. Liver: No acute abnormality or suspicious lesions. Biliary: No biliary ductal dilatation. Stomach: No significant focal abnormality. Duodenum: No significant focal abnormality. Pancreas: No significant abnormality. Spleen: No significant abnormality. Adrenal: No suspicious lesions. Kidney/ureter: No hydronephrosis. No renal calculi. Retroperitoneum: No retroperitoneal adenopathy. Vascular: No aneurysm. Atherosclerosis. Bilateral renal artery stents. Bowel: No significant focal abnormality. Moderate stool in the colon. Peritoneum: No ascites or free air. Bladder: Grossly unremarkable. Reproductive: No adnexal masses. Bones: No acute fracture. Disc height loss at L5-S1. Other: n/a IMPRESSION: No acute intra-abdominal or pelvic finding.
--- NOTE | 2022-05-25 13:16 | ER ---
Nurse's Notes [facility] Name: Mary Roberson Age: 71 yrs Sex: Female : 1950 Arrival Date: 05/25/2022 Time: 08:19 Bed 16 Private MD: Diagnosis: Chest pain, unspecified;Abdominal pain, unspecified Presentation: 05/25 08:25 Chief complaint: EMS states: patient called 911 after experiencing chest pain and high ko1 blood pressure this morning. Coronavirus screen: At this time, the client does not indicate any symptoms associated with coronavirus-19. Ebola Screen: No symptoms or risks identified at this time. Initial Sepsis Screen: Does the patient meet any 2 criteria? No. Patient's initial sepsis screen is negative. Does the patient have a suspected source of infection? No. Patient's initial sepsis screen is negative. Risk Assessment: Do you want to hurt yourself or someone else? Patient reports no desire to harm self or others. Onset of symptoms was May 25, 2022. 08:25 Method Of Arrival: EMS: [facility] ko1 08:25 Acuity: LAURIE 3 ko1 Triage Assessment: 08:37 General: Appears in no apparent distress. comfortable, Behavior is cooperative, ko1 appropriate for age, anxious. Pain: Complains of pain in epigastric area, right upper quadrant and left upper quadrant. Historical: - Allergies: 08:37 Levaquin; ko1 - Home Meds: 08:37 amlodipine 10 mg tab 1 tab once daily [Active]; cetirizine 10 mg Oral tab 1 tab once ko1 daily [Active]; carvedilol 6.25 mg Oral tab 1 tab 2 times per day [Active]; atorvastatin 10 mg Oral tab 1 tab once daily [Active]; ClearLax 17 gram/dose Oral powd once daily [Active]; clopidogrel Oral [Active]; losartan 100 mg Oral tab 1 tab once daily [Active]; multi-probiotics [Active]; aspirin 81 mg Oral chew 1 tab once daily [Active]; Emergen-C 1,000 mg Oral pwep daily [Active]; melatonin 0.5 mg Oral tab [Active]; CoQ-10 100 mg Oral cap [Active]; famotidine 20 mg Oral tab 1 tab 2 times per day [Active]; Tylenol Arthritis Pain 650 mg Oral TbER 2 tabs twice a day [Active]; Hair,Skin and Nails 5000 mcg Oral tab [Active]; Osphena 60 mg Oral tab 0.5 tab Every other day [Active]; Ventolin HFA 90 mcg/actuation Nebulizer nebu 1 puff twice a day [Active]; vitamin E 400 unit Oral cap daily [Active]; Cosamin DS Oral [Active]; - PMHx: 08:37 Carotid blockage; Fibromyalgia; GERD; renal artery blockage; Hypertension; ko1 - PSHx: 08:37 oral SX-dentures top; ko1 - Immunization history:: Adult Immunizations up to date, Client reports receiving the 2nd dose of the Covid vaccine. - Social history:: Smoking status: Patient denies any tobacco usage or history of. - Family history:: not pertinent. - Hospitalizations: : No recent hospitalization is reported. Screenin:40 Abuse screen: Denies threats or abuse. Denies injuries from another. Nutritional ko1 screening: No deficits noted. Tuberculosis screening: No symptoms or risk factors identified. Fall Risk None identified. Assessment: 08:40 General: Appears in no apparent distress. comfortable, Behavior is cooperative, ko1 appropriate for age, anxious. Pain: Complains of pain in abdomen and left upper quadrant and right upper quadrant and epigastric area. Neuro: No deficits noted. Cardiovascular: No deficits noted. Respiratory: No deficits noted. GI: Abd is soft X 4 quads Abdomen is tender to palpation X 4 quads. : No deficits noted. EENT: No deficits noted. Derm: No deficits noted. Musculoskeletal: No deficits noted. Vital Signs: 08:25 BP 161 / 65; Pulse 62; Resp 16; Temp 97.2; Pulse Ox 100% ; Pain 4/10; ko1 08:40 BP 163 / 67; Pulse 65; Pulse Ox 100% ; ko1 09:56 BP 159 / 69; Pulse 62; Pulse Ox 98% ; ko1 10:29 BP 153 / 63; Pulse 63; Pulse Ox 98% on R/A; ko1 10:47 BP 147 / 65; Pulse 63; Pulse Ox 98% ; ko1 Vitals: 08:40 Cardiac Rhythm Assessment Regular Sinus rhythm. ko1 ED Course: 08:19 Patient arrived in ED. eb 08:27 Ra Schroeder MD is Attending Physician. rn 08:34 Joana Clarke, RN is Primary Nurse. ko1 08:37 Triage completed. ko1 08:37 Arm band placed on left wrist. ko1 08:40 Patient has correct armband on for positive identification. Placed in gown. Bed in low ko1 position. Call light in reach. Side rails up X2. Adult w/ patient. 08:40 Client placed on continuous cardiac and pulse oximetry monitoring. NIBP monitoring ko1 applied. potline monitor on. 08:40 Maintain EMS IV. Dressing intact. Good blood return noted. Site clean \T\ dry. Gauge \T\ ko 1 site: 22 left wrist. IV is patent, is intact, with fluids infusing freely, with good blood return, Flushed left saline lock with 5 ml normal saline. Patient maintains SpO2 saturation greater than 95% on room air. 08:56 Basic Metabolic Panel Sent. ko1 08:56 CBC with Diff Sent. ko1 08:56 NT PRO-BNP Sent. ko1 08:56 Troponin HS Sent. ko1 08:56 Lipase Sent. ko1 08:56 LFT's Sent. ko1 08:56 D-Dimer Sent. ko1 09:27 XRAY Chest (1 view) In Process Unspecified. EDMS 09:50 Pillow given. jd3 11:22 Abdomen In Process Unspecified. EDMS 12:31 Troponin HS: repeat trop now Sent. ko1 12:36 CT Abd/Pelvis - IV Contrast Only Sent. eb 13:36 No provider procedures requiring assistance completed. IV discontinued, intact, ko1 bleeding controlled, No redness/swelling at site. Pressure dressing applied. Administered Medications: 08:43 Drug: GI Cocktail without - (Maalox Suspension 30 ml, Lidocaine Liquid 2 % 15 ko1 ml) Route: PO; Medication: 08:40 VIS not applicable for this client. ko1 Outcome: 13:16 Discharge ordered by . rn 13:36 Discharged to home via wheelchair, with family. ko1 13:36 Condition: improved 13:36 Discharge instructions given to patient, family, Instructed on discharge instructions, follow up and referral plans. Demonstrated understanding of instructions, follow-up care. 13:37 Patient left the ED. ko1 Signatures: Dispatcher [employer] EDMS Ra Schroeder MD MD rn Davies, Jonathon, RN RN jd3 Gilmore, HollieJoana Melchor, RN RN ko1
--- NOTE | 2022-05-25 13:16 | EDPHYS ---
Physician Documentation [facility] Name: Mary Roberson Age: 71 yrs Sex: Female : 1950 Arrival Date: 05/25/2022 Time: 08:19 Bed 16 Private MD: ED Physician Ra Schroeder HPI: 05/25 09:20 This 71 yrs old Female presents to ER via EMS with complaints of Chest Pain. rn 09:20 The patient or guardian reports chest pain that is located primarily in the substernal rn area, epigastric area. Onset: this morning. The pain radiates to neck. Associated signs and symptoms: Pertinent negatives: cough, headache, palpitations, shortness of breath, syncope, vomiting. The chest pain is described as aching. Duration: The patient or guardian reports multiple episodes. Modifying factors: The symptoms are alleviated by nothing. the symptoms are aggravated by nothing. Severity of pain: At its worst the pain was moderate in the emergency department the pain has improved. The patient has experienced similar episodes in the past. The patient has not recently seen a physician. Pt reports chest pain, substernal, radiates up chest and to neck, woke her up about 2 hours prior to arrival, no diaphoresis, no sob, has had cardiac stents before but reports had heart cath a few months ago without stent. No fever. No trauma. NO vomiting/diarrhea. Reports has fibromyalgia. States feels similar to fibromyalgia pains but also doesn't. . Historical: - Allergies: 08:37 Levaquin; ko1 - Home Meds: 08:37 amlodipine 10 mg tab 1 tab once daily [Active]; cetirizine 10 mg Oral tab 1 tab once ko1 daily [Active]; carvedilol 6.25 mg Oral tab 1 tab 2 times per day [Active]; atorvastatin 10 mg Oral tab 1 tab once daily [Active]; ClearLax 17 gram/dose Oral powd once daily [Active]; clopidogrel Oral [Active]; losartan 100 mg Oral tab 1 tab once daily [Active]; multi-probiotics [Active]; aspirin 81 mg Oral chew 1 tab once daily [Active]; Emergen-C 1,000 mg Oral pwep daily [Active]; melatonin 0.5 mg Oral tab [Active]; CoQ-10 100 mg Oral cap [Active]; famotidine 20 mg Oral tab 1 tab 2 times per day [Active]; Tylenol Arthritis Pain 650 mg Oral TbER 2 tabs twice a day [Active]; Hair,Skin and Nails 5000 mcg Oral tab [Active]; Osphena 60 mg Oral tab 0.5 tab Every other day [Active]; Ventolin HFA 90 mcg/actuation Nebulizer nebu 1 puff twice a day [Active]; vitamin E 400 unit Oral cap daily [Active]; Cosamin DS Oral [Active]; - PMHx: 08:37 Carotid blockage; Fibromyalgia; GERD; renal artery blockage; Hypertension; ko1 - PSHx: 08:37 oral SX-dentures top; ko1 - Immunization history:: Adult Immunizations up to date, Client reports receiving the 2nd dose of the Covid vaccine. - Social history:: Smoking status: Patient denies any tobacco usage or history of. - Family history:: not pertinent. - Hospitalizations: : No recent hospitalization is reported. ROS: 09:20 Constitutional: Negative for fever, chills, and weight loss, Eyes: Negative for injury, rn pain, redness, and discharge, Neck: Negative for injury, pain, and swelling, Cardiovascular: Negative for palpitations, and edema Respiratory: Negative for shortness of breath, cough, wheezing, and pleuritic chest pain, Abdomen/GI: Negative for nausea, vomiting, diarrhea, and constipation, Back: Negative for injury and pain, MS/Extremity: Negative for injury and deformity, Skin: Negative for injury, rash, and discoloration, Neuro: Negative for headache, weakness, numbness, tingling, and seizure. Exam: 08:34 ECG was reviewed by the Attending Physician. rn 09:20 Constitutional: This is a well developed, well nourished patient who is awake, alert, rn and in no acute distress. Head/Face: Normocephalic, atraumatic. Eyes: Periorbital areas with no swelling, redness, or edema. Neck: Trachea midline, no masses palpated. Supple, full range of motion without nuchal rigidity, or vertebral point tenderness. No Meningismus. Cardiovascular: Regular rate and rhythm. No pulse deficits. Respiratory: No increased work of breathing, no retractions or nasal flaring. Abdomen/GI: Soft, non-tender Skin: Warm, dry MS/ Extremity: Pulses equal, no cyanosis. Neurovascular intact. Full, normal range of motion. Equal circumference. Neuro: Awake and alert, GCS 15 Vital Signs: 08:25 BP 161 / 65; Pulse 62; Resp 16; Temp 97.2; Pulse Ox 100% ; Pain 4/10; ko1 08:40 BP 163 / 67; Pulse 65; Pulse Ox 100% ; ko1 09:56 BP 159 / 69; Pulse 62; Pulse Ox 98% ; ko1 10:29 BP 153 / 63; Pulse 63; Pulse Ox 98% on R/A; ko1 10:47 BP 147 / 65; Pulse 63; Pulse Ox 98% ; ko1 MDM: 08:27 Patient medically screened. rn 13:14 Differential diagnosis: acute myocardial infarction, acute pericarditis, anxiety, rn coronary artery disease costochondritis, esophagitis, gastritis, gastroesophageal reflux disease (GERD), hiatal hernia, pancreatitis, peptic ulcer disease, pleurisy, pulmonary embolus, stable angina. Data reviewed: vital signs, nurses notes, lab test result(s), EKG, radiologic studies, CT scan, plain films, and as a result, I will discharge patient. Counseling: I had a detailed discussion with the patient and/or guardian regarding: the historical points, exam findings, and any diagnostic results supporting the discharge/admit diagnosis, lab results, radiology results, the need for outpatient follow up, to return to the emergency department if symptoms worsen or persist or if there are any questions or concerns that arise at home. Response to treatment: the patient's symptoms have markedly improved after treatment, the patient's condition has returned to base line, the patient is now symptom free, and as a result, I will discharge patient. Special discussion: Based on the patient's history, exam, and Dx evaluation, there is no indication for emergent intervention or inpatient Tx. It is understood by the patient/guardian that if the Sx's persist or worsen they need to return immediately for re-evaluation. Based on the patient's Hx, exam, and Dx evaluation, there is no indication for emergent surgery or inpatient Tx. It is understood by the patient/guardian that if the Sx's persist or worsen they need to return immediately for re-evaluation. I discussed with the patient/guardian in detail that at this point there is no indication for admission to the hospital. It is understood, however, that if the symptoms persist or worsen the patient needs to return immediately for re-evaluation. 13:14 ED course: Pt stated earlier that chest not bothering her anymore, now was abdomen, CT rn added, was negative for acute findings, and repeat trop neg. Will dc home as symptoms have now improved/resolved. . 05/25 08:28 Order name: Basic Metabolic Panel; Complete Time: 09:37 rn 05/25 08:28 Order name: CBC with Diff; Complete Time: 09:37 rn 05/25 08:28 Order name: NT PRO-BNP; Complete Time: 09:37 rn 05/25 08:28 Order name: Troponin HS; Complete Time: 09:37 rn 05/25 08:28 Order name: Lipase; Complete Time: 09:37 rn 05/25 08:28 Order name: LFT's; Complete Time: 09:37 rn 05/25 08:28 Order name: XRAY Chest (1 view); Complete Time: 09:37 rn 05/25 08:28 Order name: EKG; Complete Time: 08:29 rn 05/25 08:28 Order name: D-Dimer; Complete Time: 09:37 rn 05/25 09:45 Order name: CT Abd/Pelvis - IV Contrast Only rn 05/25 11:18 Order name: Abdomen ; Complete Time: 13:01 EDMS 05/25 12:00 Order name: Troponin HS: repeat trop now; Complete Time: 13:01 eb 05/25 08:28 Order name: Cardiac monitoring; Complete Time: 08:39 rn 05/25 08:28 Order name: EKG - Nurse/Tech; Complete Time: 08:39 rn 05/25 08:28 Order name: IV Saline Lock; Complete Time: 08:39 rn 05/25 08:28 Order name: Labs collected and sent; Complete Time: 08:56 rn 05/25 08:28 Order name: O2 Per Protocol; Complete Time: 08:40 rn 05/25 08:28 Order name: O2 Sat Monitoring; Complete Time: 08:40 rn EC:34 Rate is 62 beats/min. Rhythm is regular. QRS [place] is Normal. ID interval is normal. QRS rn interval is normal. QT interval is normal. No Q waves. T waves are Normal. No ST changes noted. Clinical impression: NSR w/ Non-specific ST/T Changes. Interpreted by me. Reviewed by me. Administered Medications: 08:43 Drug: GI Cocktail without - (Maalox Suspension 30 ml, Lidocaine Liquid 2 % 15 ko1 ml) Route: PO; Disposition Summary: 05/25/22 13:16 Discharge Ordered Location: Home rn Problem: new rn Symptoms: have improved rn Condition: Stable rn Diagnosis - Chest pain, unspecified rn - Abdominal pain, unspecified rn Followup: rn - With: Private Physician - When: As needed - Reason: Recheck today's complaints, Re-evaluation by your physician Discharge Instructions: - Discharge Summary Sheet rn - Abdominal Pain, Adult rn - Nonspecific Chest Pain, Adult rn - Pain Without a Known Cause rn Forms: - Medication Reconciliation Form rn - Thank You Letter rn - Antibiotic business analyst intern - Prescription Opioid Use rn Signatures: Dispatcher [employer] Ra Luna MD MD rn Oliver, Kathy, ROSE RN ko1 Corrections: (The following items were deleted from the chart) 11:18 09:52 Abdomen ordered. EDMD EDMD
[2022-05-25 13:53] VITALS: TEMP 97.2
[2022-05-25 13:56] VITALS: O2SAT 98
[2022-05-25 13:58] VITALS: BP 147/65
--- NOTE | 2022-05-26 18:40 | EKG ---
Test Date: 2022-05-25 Test Time: 08:34:21 Language Tutor: ALINE MEASUREMENT RESULTS: Intervals: Rate: 62 AL: 186 QRSD: 78 QT: 386 QTc: 391 [place]herty: P: 46 AL: 186 QRS: 29 T: 39 INTERPRETIVE STATEMENTS: Normal sinus rhythm Septal infarct, age undetermined Abnormal ECG Compared to ECG 03/21/2022 15:54:39 Myocardial infarct finding now present Sinus bradycardia no longer present First degree AV block no longer present Electronically Signed On 05-26-22 18:37:44 CDT by Lamont Kennedy
== END 2022-05-25 13:37 | disposition home or self-care (01) ==
LOC: ER 08:16
DX: R07.89 Other chest pain (principal); R10.13 Epigastric pain; K21.9 Gastro-esophageal reflux disease without esophagitis; I10 Essential (primary) hypertension; Z88.1 Allergy status to other antibiotic agents
CPT/HCPCS: 36415; 71045; 74176; 80048; 80076; 83690; 83880; 84484; 85025; 85379; 93005; 99285

== ENCOUNTER 2022-11-07 22:24 | Inpatient (IN) | payer OTHER, MEDICARE ==
--- OUTSIDE RECORDS SUMMARY | 2022-11-07 23:16 | XMS REPORT | Continuity of Care Document ---
:1950 Author Organization [facility] t Address [address] [facility] [place] [address] Care Team Providers Name Role Phone Feliciano Diallo MD Primary Care Physician LOIDA BAZZI Attending Clinician Unavailable RAUL HINKLE Attending Clinician Unavailable AIDEN PALUMBO Attending Clinician Unavailable JAYDEN RODRIGUEZ Attending Clinician Unavailable JAYDEN RODRIGUEZ Attending Clinician Unavailable Carolyn Parkinson MA Attending Clinician Unavailable Raul Hinkle MD Attending Clinician Doctor Unassigned, [place] Attending Clinician Unavailable Only, Adc Test Attending Clinician Unavailable LUDWIG BAILEY Attending Clinician Unavailable YANELY DUNLAP Attending Clinician Unavailable AURELIANO MCCABE Attending Clinician Unavailable RAUL HINKLE Admitting Clinician Unavailable Raul Hinkle MD Admitting Clinician Payers Payer Name Policy Type Policy Number Effective Date Expiration Date S goldie MEDICARE PART A AND [id number] 2014 B 00:00:00 MEDICARE PART A \T\ [id number] 2014 B 00:00:00 [facility] [id number] 2019 MEDICARE SUPPLEMENT 00:00:00 Problems Condition Condition [...] Added automatic ally from request for surgery [id number] Lumbar Lumbar Disease Active 2015-08 [facility] spondylosi spondylosi 0-24 [facility] s [facility] 00:00: Hospita 00 l Fibromyalg Fibromyalg Disease Active 1989-08 U T ia ia 0-24 Health 00:00: 00 Dizziness Dizziness Problem Active 2021-03-01 Memoria (finding) (finding) 02:06:14 l Active Billy Problem 03/01/2021 [facility] Headache Headache Problem Active 2021-03-01 Memoria (finding) (finding) 02:06:14 l Active Valentine Problem 03/01/2021 [facility] Hypertensi Hypertens Problem Active 2021-03-01 Memoria ve chase 02:06:14 l disorder, disorder, Herm cyndi systemic systemic arterial arterial (disorder) (disorder) Active Problem 03/01/2021 [facility] Hyperlipid Hyperlipi Problem Active 2021-03-01 Memoria emia demia 02:06:14 l (disorder) (disorder) He rmann Active Problem 03/01/2021 [facility] Neck pain Neck pain Problem Active 2021-03-01 Memoria (finding) (finding) 02:06:14 l Active Valentine Problem 03/01/2021 [facility] 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) (disorder) Active Problem 03/01/2021 [facility] Lumbar Lumbar Problem Active 2021-03-01 Luke tk radiculopa radiculopa 02:06:14 l thy thy Billy (disorder) (disorder) Active Problem 03/01/2021 [facility] Atypical Atypical Problem Active 2021-03-01 Memoria facial facial 02:06:14 l pain pain Billy (finding) (finding) Active Problem 03/01/2021 [facility] Allergies, Adverse [...] Active Univers ALLERGIE Class [facility] Family History Family Member Diagnosis Comments Start Date Stop Date Source Natural father Cancer [facility] Natural father Heart disease [facility] Natural mother Clotting disorder [facility] Social History Social Habit Start Date Stop Date Quantity Comments Source History SDDE [facility] Alcohol Std Drinks History SDDE [facility] Alcohol Binge History SDDE [facility] Alcohol Comment History of tobacco Passive smoker [facility] use Exposure to 2022-08-03 2022-08-13 Not sure [facility] SARS-CoV-2 (event) 00:00:00 11:59:00 Tobacco use and 2022-03-26 2022-03-26 Smokeless tobacco [facility] exposure 00:00:00 00:00:00 non-user History SDOH 2021-09-18 2021-09-18 1 [facility] Alcohol Frequency 00:00:00 00:00:00 Alcohol intake 2020-01-23 2020-01-23 Current [facility] 00:00:00 00:00:00 non-drinker of Hospital alcohol (finding) Cigarette 2018-09-07 2018-09-07 [facility] pack-years 00:00:00 00:00:00 Hospital Cigarettes smoked 2018-09-07 2018-09-[address] current (pack per 00:00:00 00:00:00 Hospita l ) - Reported Sex Ass[birth year] At [birth year] [facility] 00:00:00 00:00:00 Hospital Smoking Status Start Date Stop Date Source Unknown if ever smoked [facility] Never smoked tobacco [facility] Social History 2021-02-26 15:25:2021-02-26 15:25: [facility] Medications Ordered Filled Start Stop Current Ordering Indication Dosage Frequency Signature Comments Components Source Medication Medication Date Date Medication? Clinician (SIG) Name Name guanFACINE Yes QD Take by UT (Intuniv) 3 1-11 mouth 1 Healt h mg 24 hr 12:19: (one) time tablet 48 each day. pantoprazol Yes 40mg Take 40 mg UT e 1-11 by mouth. Health (ProtoNix) 12:17: 40 MG EC 36 tablet amitriptyli Yes 10mg Take 10 mg UT ne (Elavil) 1-11 by mouth. Hea lth 10 MG 12:17: tablet 36 betamethaso Yes Apply UT ne 1-11 topically. Health dipropionat 12:17: e 36 (Diprolene) 0.05 % cream acetaminoph Yes 1300mg Take 1,300 UT en (Tylenol 1-11 mg by Health 8 Hour) 650 12:17: mouth. MG ER 36 tablet sertraline 0 Yes 50mg QD Take 50 mg U T (Zoloft) 50 1-11 by mouth 1 He alth MG tablet 12:17: (one) time 36 each day. albuterol 0 Yes Q.5D Inhale UT (2.5 1-11 twice a Health MG/3ML) 12:17: day. 0.083% 36 nebulizer solution predniSONE 0 Yes [id number] Take 2 UT (Deltasone) -11 tablets Healt h 5 MG tablet 00:00: daily for 00 10 days, then 1 1/2 tablets for the next 3 months budesonide 2023- Yes [id number] 1mg Q.5D Take 2 mL UT (Pulmicort) 08-13 (1 mg Health 1 MG/2ML 00:00: 05:59 total) by nebulizer 00 :00 nebulizati solution on in the morning and 2 mL (1 mg total) before bedtime. Rinse mouth with water after use to reduce aftertaste and incidence of candidiasi s. Do not swallow.. pantoprazol 2021-08 Yes 40mg Take 40 mg UT e 08-03 by mouth. Health (ProtoNix) 11:00: 40 MG EC 31 tablet amitriptyli 2021-08 Yes 10mg Take 10 mg UT ne (Elavil) 08-03 by mouth. Hea lth 10 MG 11:00: tablet 31 betamethaso 2021-08 Yes Apply UT ne 08-03 topically. Health dipropionat 11:00: e 31 (Diprolene) 0.05 % cream acetaminoph 2021-08 Yes 1300mg Take 1,300 UT en (Tylenol 1-01 mg by Health 8 Hour) 650 11:00: mouth. MG ER 31 tablet sertraline 2021-08 Yes 50mg QD Take 50 mg U T (Zoloft) 50 08-03 by mouth 1 He alth MG tablet 11:00: (one) time 31 each day. albuterol 2021-08 Yes Q.5D Inhale UT (2.5 08-03 twice a Health MG/3ML) 11:00: day. 0.083% 31 nebulizer solution spironolact 2021-08- No 50mg QD Take 50 mg UT one 08-03 by mouth 1 Health (Aldactone) 11:00: 00:00 (one) time 100 MG 04 :00 each day. tablet triamcinolo 2021-08- No [id number] 2{spray QD Administer UT ne 08-03 } 2 sprays Health (Nasacort) 00:00: 04:59 into each 55 MCG/ACT 00 :00 nostril 1 nasal (one) time inhaler each day. triamcinolo 2021-08- No [id number] 2{spray QD Administer UT ne 08-03 } 2 sprays Health (Nasacort) 00:00: 04:59 into each 55 MCG/ACT 00 :00 nostril 1 nasal (one) time inhaler each day. predniSONE 2021-08- No [id number] Take 20 mg UT (Deltasone) 0-12 11-12 (4 tabs) Hea lth 5 MG tablet 00:00: 05:59 daily for 00 :00 30 days, 10 mg (2 tabs) daily for 30 days and 5 mg (1 tab) for days. predniSONE 2021-08- No [id number] Take 20 mg UT (Deltasone) 0-12 11-12 (4 tabs) Hea lth 5 MG tablet 00:00: 05:59 daily for 00 :00 30 days, 10 mg (2 tabs) daily for 30 days and 5 mg (1 tab) for days. predniSONE 2021-08- No [id number] Take 20 mg UT (Deltasone) 0-12 11-12 (4 tabs) Hea lth 5 MG tablet 00:00: 05:59 daily for 00 :00 30 days, 10 mg (2 tabs) daily for 30 days and 5 mg (1 tab) for days. predniSONE 2021-08- No [id number] Take 20 mg UT (Deltasone) 0-12 11-12 (4 tabs) Hea lth 5 MG tablet 00:00: 05:59 daily for 00 :00 30 days, 10 mg (2 tabs) daily for 30 days and 5 mg (1 tab) for days. levoFLOXaci 2021- No UT n 8- 08-24 Health (Levaquin) 13:24: 00:00 125 MG 24 :00 split tablet spironolact 2021-0 Yes 50mg QD Take 50 mg UT one 8-24 by mouth 1 Health (Aldactone) 13:24: (one) time 100 MG 20 each day. tablet spironolact 2021-0 Yes 50mg QD Take 50 mg UT one 8-24 by mouth 1 Health (Aldactone) 13:24: (one) time 100 MG 20 each day. tablet spironolact 2022-0 Yes 50mg QD Take 50 mg UT one 8-24 by mouth 1 Health (Aldactone) 13:24: (one) time 100 MG 20 each day. tablet spironolact 2022-0 Yes 50mg QD Take 50 mg UT one 8-24 by mouth 1 Health (Aldactone) 13:24: (one) time 100 MG 20 each day. tablet Gentamicin 2022-0 Yes [id number] COMPOUND: UT Sulfate 7-18 Mix 80 mg Health powder 00:00: in 00 SinusRinse . Irrigate each side BID methylPREDN 2022-0 Yes [id number] 5mg Q.5D 5 mg 2 UT ISolone 7-18 (two) Health powder 00:00: times a 00 day. Gentamicin 2022-0 Yes [id number] COMPOUND: UT Sulfate 7-18 Mix 80 mg Health powder 00:00: in 00 SinusRinse . Irrigate each side BID methylPREDN 2022-0 Yes [id number] 5mg Q.5D 5 mg 2 UT ISolone 7-18 (two) Health powder 00:00: times a 00 day. Gentamicin 2022-0 Yes [id number] COMPOUND: UT Sulfate 7-18 Mix 80 mg Health powder 00:00: in 00 SinusRinse . Irrigate each side BID methylPREDN 2022-0 Yes [id number] 5mg Q.5D 5 mg 2 UT ISolone 7-18 (two) Health powder 00:00: times a 00 day. Gentamicin 2022-0 Yes [id number] COMPOUND: UT Sulfate 7-18 Mix 80 mg Health powder 00:00: in 00 SinusRinse . Irrigate each side BID methylPREDN 2022-0 Yes [id number] 5mg Q.5D 5 mg 2 UT ISolone 7-18 (two) Health powder 00:00: times a 00 day. methylPREDN 2022-0 Yes [id number] 5mg Q.5D 5 mg 2 UT ISolone 7-18 (two) Health powder 00:00: times a 00 day. methylPREDN 2022-0 Yes [id number] 5mg Q.5D 5 mg 2 UT ISolone 7-18 (two) Health powder 00:00: times a 00 day. Gentamicin 2022-0 2022- No [id number] COMPOUND: UT Sulfate 7-18 - Mix 80 mg Health powder 00:00: 00:00 in 00 :00 SinusRinse . Irrigate each side BID albuterol 2021-0 Yes Q.5D Inhale UT (2.5 7-07 twice a Health MG/3ML) 15:30: day. 0.083% 26 nebulizer solution albuterol 2021-0 Yes Q.5D Inhale UT (2.5 7-07 twice a Health MG/3ML) 15:30: day. 0.083% 26 nebulizer solution albuterol 2021-0 Yes Q.5D Inhale UT (2.5 7-07 twice a Health MG/3ML) 15:30: day. 0.083% 26 nebulizer solution albuterol 2021-0 Yes Q.5D Inhale UT (2.5 7-07 twice a Health MG/3ML) 15:30: day. 0.083% 26 nebulizer solution Gentamicin 0 Yes [id number] COMPOUND: UT Sulfate 7-07 Mix 80 mg Health powder 00:00: in 00 SinusRinse . Irrigate each side BID X 30 days budesonide 0 Yes [id number] COMPOUND: UT (Pulmicort) 7-07 Mix 0.5 mg He alth 0.5 MG/2ML 00:00: Respule in nebulizer 00 SinusRinse solution . Irrigate each side once a day Gentamicin 2021-0 Yes [id number] COMPOUND: UT Sulfate 7-07 Mix 80 mg Health powder 00:00: in 00 SinusRinse . Irrigate each side BID X 30 days budesonide 0 Yes [id number] COMPOUND: UT (Pulmicort) 7-07 Mix 0.5 mg He alth 0.5 MG/2ML 00:00: Respule in nebulizer 00 SinusRinse solution . Irrigate each side once a day Gentamicin 2021-0 Yes [id number] COMPOUND: UT Sulfate 7-07 Mix 80 mg Health powder 00:00: in 00 SinusRinse . Irrigate each side BID X 30 days budesonide 0 Yes [id number] COMPOUND: UT (Pulmicort) 7-07 Mix 0.5 mg He alth 0.5 MG/2ML 00:00: Respule in nebulizer 00 SinusRinse solution . Irrigate each side once a day Gentamicin 2021-0 Yes [id number] COMPOUND: UT Sulfate 7-07 Mix 80 mg Health powder 00:00: in 00 SinusRinse . Irrigate each side BID X 30 days budesonide 2021-0 Yes [id number] COMPOUND: UT (Pulmicort) 02-06 Mix 0.5 mg He alth 0.5 MG/2ML 00:00: Respule in nebulizer 00 SinusRinse solution . Irrigate each side once a day Gentamicin 2021-0 2021- No [id number] COMPOUND: UT Sulfate 02-06 Mix 80 mg Health powder 00:00: 00:00 in 00 :00 SinusRinse . Irrigate each side BID X 30 days budesonide 2021-0 2021- No [id number] COMPOUND: UT (Pulmicort) 02-06 Mix 0.5 mg H ealth 0.5 MG/2ML 00:00: 00:00 Respule in nebulizer 00 :00 SinusRinse solution . Irrigate each side once a day pantoprazol 2021-0 Yes 40mg Take 40 mg UT e 2-16 by mouth. Health (ProtoNix) 13:21: 40 MG EC 05 tablet amitriptyli 2021-0 Yes 10mg Take 10 mg UT ne (Elavil) 2-16 by mouth. Hea lth 10 MG 13:21: tablet 05 betamethaso 2021-0 Yes Apply UT ne 2-16 topically. Health dipropionat 13:21: e 05 (Diprolene) 0.05 % cream acetaminoph 0 Yes 1300mg Take 1,300 UT en (Tylenol [...] 13:21: mouth. MG ER 05 tablet sertraline 2022-0 Yes 50mg QD Take 50 mg U T (Zoloft) 50 2-16 by mouth 1 He alth MG tablet 13:21: (one) time 05 each day. pantoprazol 2022-0 Yes 40mg Take 40 mg UT e 2-16 by mouth. Health (ProtoNix) 13:21: 40 MG EC 05 tablet amitriptyli 2022-0 Yes 10mg Take 10 mg UT ne (Elavil) 2-16 by mouth. Hea lth 10 MG 13:21: tablet 05 betamethaso 2022-0 Yes Apply UT ne 2-16 topically. Health dipropionat 13:21: e 05 (Diprolene) 0.05 % cream acetaminoph 2-0 Yes 1300mg Take 1,300 UT en (Tylenol 2-16 mg by Health 8 Hour) 650 13:21: mouth. MG ER 05 tablet sertraline 2022-0 Yes 50mg QD Take 50 mg U T (Zoloft) 50 2-16 by mouth 1 He alth MG tablet 13:21: (one) time 05 each day. pantoprazol 2022-0 Yes 40mg Take 40 mg UT e 2-16 by mouth. Health (ProtoNix) 13:21: 40 MG EC 05 tablet amitriptyli 2022-0 Yes 10mg Take 10 mg UT ne (Elavil) 2-16 by mouth. Hea lth 10 MG 13:21: tablet 05 betamethaso 2022-0 Yes Apply UT ne 2-16 topically. Health dipropionat 13:21: e 05 (Diprolene) 0.05 % cream acetaminoph 2022-0 Yes 1300mg Take 1,300 UT en (Tylenol 2-16 mg by Health 8 Hour) 650 13:21: mouth. MG ER 05 tablet sertraline 2022-0 Yes 50mg QD Take 50 mg U T (Zoloft) 50 2-16 by mouth 1 He alth MG tablet 13:21: (one) time 05 each day. atorvastati 2022-0 Yes UT n (Lipitor) 2-03 Health 80 MG 00:00: tablet 00 atorvastati 2021-0 Yes UT n (Lipitor) 2-03 Health 80 MG 00:00: tablet 00 atorvastati 2021-0 Yes UT n (Lipitor) 2-03 Health 80 MG 00:00: tablet 00 atorvastati 2021-0 Yes UT n (Lipitor) 2-03 Health 80 MG 00:00: tablet 00 atorvastati 2021-0 Yes UT n (Lipitor) 2-03 Health 80 MG 00:00: tablet 00 atorvastati 2021-0 Yes UT n (Lipitor) 2-03 Health 80 [...] time each day with breakfast. Osphena 60 2020-08- No 1{tbl} QD Take 1 UT MG tablet 0-28 11-01 tablet by Heal th 00:00: 00:00 mouth 1 00 :00 (one) time each day with breakfast. amitriptyli Yes 10mg Take 10 mg Univers ne 10 mg 8-11 by mouth ity of tablet 16:03: at [place] [address] bedtime. Medical Branch vancomycin Yes 125mg Take 125 Un ramandeep (VANCOCIN 8-11 mg by ity of HCL) 125 mg 16:03: mouth 4 Gigi as capsule 37 (four) Medical times Branch daily. pantoprazol Yes 40mg Take 40 mg Univers e 40 mg EC 8-11 by mouth ity o f tablet 16:03: daily. [address] Branch amLODIPine Yes 5mg Take 5 mg Un ramandeep 5 mg tablet 8-11 by mouth ity of 16:03: daily. [place] [address] Medical Branch betamethaso Yes Apply to Un [...] 8-11 mouth ity of TbSu 16:03: daily. [place] [address] Medical Branch LEVOFLOXACI Yes 125mg Take 125 U nivers N ORAL 8-11 mg by ity of 16:03: mouth [place] 37 daily. Medical Empty 1 Branch capsule into irrigation system daily melatonin 3 Yes Take by Uni vers mg Cap 8-11 mouth at ity of 16:03: bedtime. [place] [address] Medical Branch mv-mn/B.coa Yes Take by Uni vers g/B.subtili 8-11 mouth 2 ity o f s/inulin 16:03: (two) [place] (CULTURELLE 37 times Medical PROBIOTIC-M daily. Branch ULTIVIT ORAL) GLUTATHIONE Yes 2{capsu Take 2 U nivers ORAL 8-11 le} capsules ity of 16:03: by mouth 2 [place] 37 (two) Medical times Branch daily. ospemifene Yes Take by [facility] ers (OSPHENA) 8-11 mouth ity of 60 mg 16:03: every [place] tablet 37 other day. Medical For Branch vaginal dryness coenzyme Yes 100mg Take 100 [facility] ers Q10 (CO 8-11 mg by ity [...] 8-11 by mouth ity of 16:03: daily. [place] [address] Medical Branch albuterol Yes 2{puff} Inhale 2 [...] by ity of ORAL 16:03: mouth at [place] [address] bedtime. Medical Branch amitriptyli Yes 10mg Take 10 mg Univers ne 10 mg 8-11 by mouth ity of tablet 16:03: at [place] [address] bedtime. Medical Branch vancomycin Yes 125mg Take 125 Un ramandeep (VANCOCIN 8-11 mg by ity of HCL) 125 mg 16:03: mouth 4 Gigi as capsule 37 (four) Medical times Branch daily. pantoprazol Yes 40mg Take 40 mg Univers e 40 mg EC 8-11 by mouth ity o f tablet 16:03: daily. [place] [address] Medical Branch amLODIPine Yes 5mg Take 5 mg Un ramandeep 5 mg tablet 8-11 by mouth ity of 16:03: daily. [place] [address] Medical Branch betamethaso Yes Apply to Un ramandeep ne 8-11 area(s) 2 ity of dipropionat 16:03: (two) [place] e 0.05 % 37 times Medical cream daily. Branch glucosamine Yes Take by Uni vers -chondroitn 8-11 mouth 2 ity o f sulf.Na 16:03: (two) [place] 750-400 mg 37 times Medical Cmpk daily. Branch levETIRAcet Yes Take by Uni vers am 250 mg 8-11 mouth ity of TbSu 16:03: daily. [place] [address] Medical Branch LEVOFLOXACI Yes 125mg Take 125 U nivers N ORAL 8-11 mg by ity of 16:03: mouth [place] [address] daily. Medical Empty 1 Branch capsule into irrigation system daily melatonin 3 Yes Take by Un ramandeep mg Cap 8-11 mouth at ity of 16:03: bedtime. [place] [address] Medical Branch mv-mn/B.coa Yes Take by Uni vers g/B.subtili 8-11 mouth 2 ity o f s/inulin 16:03: (two) [place] (CULTURELLE 37 times Medical PROBIOTIC-M daily. Branch ULTIVIT ORAL) GLUTATHIONE Yes 2{capsu Take 2 U nivers ORAL 8-11 le} capsules ity of 16:03: by mouth 2 [place] 37 (two) Medical times Branch daily. ospemifene Yes Take by [facility] ers (OSPHENA) 8-11 mouth ity of 60 [...] 8-11 by mouth ity of 16:03: daily. [place] [address] Medical Branch albuterol Yes 2{puff} Inhale 2 [...] by ity of ORAL 16:03: mouth at [place] [address] bedtime. Medical Branch amitriptyli Yes 10mg Take 10 mg Univers ne 10 mg 8-11 by mouth ity of tablet 16:03: at [place] [address] bedtime. Medical Branch vancomycin Yes 125mg Take 125 Un ramandeep (VANCOCIN 8-11 mg by ity of HCL) 125 mg 16:03: mouth 4 Gigi as capsule 37 (four) Medical times Branch daily. pantoprazol Yes 40mg Take 40 mg Univers e 40 mg EC 8-11 by mouth ity o f tablet 16:03: daily. [place] [address] Medical Branch amLODIPine Yes 5mg Take 5 mg Un ramandeep 5 mg tablet 8-11 by mouth ity of 16:03: daily. [place] [address] Medical Branch betamethaso Yes Apply to Un ramandeep ne 8-11 area(s) 2 ity of dipropionat 16:03: (two) [place] e 0.05 % 37 times Medical cream daily. Branch glucosamine Yes Take by Uni vers -chondroitn 8-11 mouth 2 ity o f sulf.Na 16:03: (two) [place] 750-400 mg 37 times Medical Cmpk daily. Branch levETIRAcet Yes Take by Uni vers am 250 mg 8-11 mouth ity of TbSu 16:03: daily. [place] [address] Medical Branch LEVOFLOXACI Yes 125mg Take 125 U nivers N ORAL 8-11 mg by ity of 16:03: mouth [place] 37 daily. Medical Empty 1 Branch capsule into irrigation system daily melatonin 3 Yes Take by Uni vers mg Cap 8-11 mouth at ity of 16:03: bedtime. [place] [address] Medical Branch mv-mn/B.coa Yes Take by Uni vers g/B.subtili 8-11 mouth 2 ity o f s/inulin 16:03: (two) [place] (CULTURELLE 37 times Medical PROBIOTIC-M daily. Branch ULTIVIT ORAL) GLUTATHIONE Yes 2{capsu Take 2 U nivers ORAL 8-11 le} capsules ity of 16:03: by mouth 2 [place] [address] (two) Medical times Branch daily. ospemifene Yes Take by [facility] ers (OSPHENA) 8-11 mouth ity of 60 [...] 8-11 by mouth ity of 16:03: daily. [place] [address] Medical Branch albuterol Yes 2{puff} Inhale 2 [...] 0 Yes 200mg Take 200 Univers SULFATE 8-11 mg by ity of ORAL 16:03: mouth at [place] 37 bedtime. Medical Branch simethicone Yes PRN, Univer s (GAS RELIEF 8-11 Starting ity of (SIMETHICON 15:03: Wed [place] E)) 40 00 03/13/21 at Medical mg/0.6 mL 1003, Branch drops Until Discontinu ed, Routine, Intra-op simethicone 2020- No PRN, Unive rs (GAS RELIEF 8-11 -11 Starting ity of (SIMETHICON 15:03: 18:03 [facility] E)) 40 00 :38 03/13/21 at Medical mg/0.6 mL 1003, Branch drops Until Thu03/13/21 at 1303, Routine, Intra-op lactated 2020- No 1000mL at 42 Unive rs ringers IV 8-11 08-11 mL/hr, ity of infusion 13:30: 13:32 1,000 mL, Gigi as 1,000 mL 00 :00 IV Medical Infusion, Branch ONCE, 1 dose, Thu03/13/21 at 0830, Routine, DSU Pre-op lactated 2020-0 2020- No 1000mL at 42 Unive rs ringers IV 8-11 08-11 mL/hr, ity of infusion 13:30: 13:32 1,000 mL, Gigi as 1,000 mL 00 :00 IV Medical Infusion, Branch ONCE, 1 dose, Thu03/13/21 at 0830, Routine, DSU Pre-op albuterol 0 Yes 2{puff} Inhale 2 U nivers (VENTOLIN [...] ZINC Yes 200mg Take 200 Univers SULFATE 8-10 mg by ity of ORAL 15:13: mouth at [place] 44 bedtime. Medical Branch methocarbam Yes 500mg Take 500 U nivers oL 8-10 mg by ity of (ROBAXIN) 15:10: mouth 3 [place] 500 mg 24 (three) Medical tablet times Branch daily as needed. SPIRONOLACT Yes 50mg Take 50 mg Univers ONE ORAL 8-10 by mouth ity of 15:10: daily. [place] [address] Medical Branch levETIRAcet Yes Take by Uni vers am 250 mg 8-10 mouth ity of TbSu 15:10: daily. [place] [address] Medical Branch LEVOFLOXACI Yes 125mg Take 125 U nivers N ORAL 8-10 mg by ity of 15:10: mouth [place] 23 daily. Medical Empty 1 Branch capsule into irrigation system daily melatonin 3 Yes Take by Uni vers mg Cap 8-10 mouth at ity of 15:10: bedtime. [place] [address] Medical Branch mv-mn/B.coa Yes Take by Uni vers g/B.subtili 8-10 mouth 2 ity o f s/inulin 15:10: (two) [place] (CULTURELLE 23 times Medical PROBIOTIC-M daily. Branch ULTIVIT ORAL) GLUTATHIONE Yes 2{capsu Take 2 U nivers ORAL 8-10 le} capsules ity of 15:10: by mouth 2 [place] 23 (two) Medical times Branch daily. ospemifene Yes Take by [facility] ers (OSPHENA) 8-10 mouth ity of 60 mg 15:10: every [place] tablet 23 other day. Medical For Branch vaginal dryness coenzyme Yes 100mg Take 100 Univ ers Q10 (CO 8-10 mg by ity [...] 8-10 by mouth ity of 14:57: daily. [place] 45 Medical Branch amitriptyli Yes 10mg Take 10 mg Univers ne 10 mg 8-10 by mouth ity of tablet 13:25: at [place] [address] bedtime. Medical Branch vancomycin Yes 125mg Take 125 Un ramandeep (VANCOCIN 8-10 mg by ity of HCL) 125 mg 13:25: mouth 4 Gigi as capsule 41 (four) Medical times Branch daily. pantoprazol Yes 40mg Take 40 mg Univers e 40 mg EC 8-10 by mouth ity o f tablet 13:25: daily. [place] 41 Medical Branch metroNIDAZO 2020- No 500mg Take 500 Univers LE (FLAGYL) 8-10 08-21 mg by ity of 500 mg 00:00: 04:59 mouth [place] tablet 00 :00 every 12 Medical (twelve) Branch hours. metroNIDAZO 2020- No 500mg Take 500 Univers LE (FLAGYL) 8-10 08-21 mg by ity of 500 mg 00:00: 04:59 mouth [place] tablet 00 :00 every 12 Medical (twelve) Branch hours. metroNIDAZO 0 2020- No 500mg Take 500 Univers LE (FLAGYL) 8-10 08-21 mg by ity of 500 mg 00:00: 04:59 mouth [place] tablet 00 :00 every 12 Medical (twelve) Branch hours. metroNIDAZO 0 2020- No 500mg Take 500 Univers LE (FLAGYL) 8-10 08-21 mg by ity of 500 mg 00:00: 04:59 mouth [place] tablet 00 :00 every 12 Medical (twelve) Branch hours. amitriptyli Yes 10 mg = 1 M emoria ne 10 mg 7-27 tab, PO, l oral tablet 16:17: Bedtime, # Billy 00 30 tab, 3 Refill(s), Pharmacy: [id number], 154.94, cm, 02/26/21 10:34:00 CDT, Height, 70, kg, 02/26/21 10:34:00 CDT, Weight Levetiracet 1-0 Yes 250 mg = 1 Memoria am 250 MG 6-18 tab, PO, l Oral Tablet 15:17: Bedtime, # Billy 00 30 tab, 3 Refill(s), Pharmacy: [id number], 152.4, cm, 01/18/21 9:55:00 CDT, Height, 71.818, kg, 01/18/21 9:55:00 CDT, Weight spironolact 1-0 Yes UT one 6-14 Health (Aldactone) 00:00: 50 MG 00 tablet clopidogrel 1-0 Yes UT (Plavix) 75 6-14 Health MG tablet 00:00: 00 spironolact 1-0 Yes UT one 6-14 Health (Aldactone) 00:00: 50 MG 00 tablet clopidogrel 1-0 Yes UT (Plavix) 75 6-14 Health MG tablet 00:00: 00 spironolact 1-0 Yes UT one 6-14 Health (Aldactone) 00:00: 50 MG 00 tablet clopidogrel 1-0 Yes UT (Plavix) 75 6-14 Health MG tablet 00:00: 00 spironolact 2021-0 Yes UT one 6-14 Health (Aldactone) 00:00: 50 MG 00 tablet clopidogrel 2021-0 Yes UT (Plavix) 75 6-14 Health MG tablet 00:00: 00 spironolact 2021-0 Yes UT one 6-14 Health (Aldactone) 00:00: 50 MG 00 tablet clopidogrel 2021-0 Yes UT (Plavix) 75 6-14 Health MG tablet 00:00: 00 spironolact 2021-0 Yes UT one 6-14 Health (Aldactone) 00:00: 50 MG 00 tablet clopidogrel 2021-0 Yes UT (Plavix) 75 6-14 Health MG tablet 00:00: 00 Levetiracet 1-0 Yes 250 mg = 1 Memoria am 250 MG 3-30 tab, PO, l Oral Tablet 19:19: BID, # 60 H ermann 00 tab, 3 Refill(s), Pharmacy: [facility] #106, 154.94, cm, 10/30/20 13:47:00 CDT, Height, 71.364, kg, 10/30/20 13:47:00 CDT, Weight Levofloxaci Yes Q24H, 0 Mem oria n 3-30 Refill(s) l 19:01: Valentine 00 Levetiracet No 250 mg = 1 Memoria am 250 MG 3-30 tab, PO, l Oral Tablet 19:01: BID, 0 Herm cyndi 00 Refill(s) Lorazepam 2019-08 No See Memoria 0.5 MG Oral 0-21 Instructio l Tablet 22:48: ns, Take 1 Marcella nn [Ativan] 00 tab po 1 hour prior to MRI, may repeat q 15 min. if still anxious, # 5 tab, 0 Refill(s), Pharmacy: [facility] #106, 152.4, cm, 05/16/20 11:29:00 CDT, Height, 65, kg, 05/16/20 11:29:00 CDT, Weight pantoprazol 2019-08 Yes 40 mg = 1 [...] 0.5 0-14 0 l MG/ML 16:34: Refill(s) Billy Topical 00 Cream Hydrochloro 2019-08 Yes 1 tab, PO, Memoria thiazide 25 0-14 Daily, 0 l MG / 16:34: Refill(s) Billy Losartan 00 Potassium 100 MG Oral Tablet carvedilol 2019-08 Yes 12.5 mg = Me moria 12.5 mg 0-14 1 tab, PO, l oral tablet 16:34: BID, # 180 Valentine 00 tab, 0 Refill(s) amLODIPine 2020-1 Yes 5 mg = 1 Mem oria 5 mg oral 0-14 tab, PO, l tablet 16:34: BID, 0 Valentine 00 Refill(s) guanFACINE 2019- Yes 3 mg = 1 Mem oria 3 mg oral 0-14 tab, PO, l tablet, 16:34: QAM, 0 Valentine extended 00 Refill(s) release spironolact 2019- Yes 50 mg = 1 M emoria one 50 mg 0-14 tab, PO, l oral tablet 16:34: Daily, # He rmann 00 90 tab, 1 Refill(s) atorvastati 2019- Yes 10 mg = 1 M emoria n 10 mg 0-14 tab, PO, l oral tablet 16:34: Daily, 0 He rm 00 Refill(s) clopidogrel 2019- Yes 75 mg = 1 M emoria 75 mg oral 0-14 tab, PO, l tablet 16:34: Daily, 0 Billy 00 Refill(s) Naltrexone 2019- Yes 0 Memoria 0-14 Refill(s) l 16:34: Billy sertraline 2019- Yes 50 mg = 1 Me moria 50 mg oral 0-14 tab, PO, l tablet 16:34: Daily, 0 Valentine 00 Refill(s) clopidogreL 2020-0 Yes Method i (PLAVIX) 75 6-15 [facility] mg [facility] Yes Method i (PLAVIX) 75 6-15 st mg tablet 00:00[facility] clopid[facility]reL 2020-0 Yes Univer s 75 mg 6-15 ity of tablet 00:00: [address] clopidogreL 2020-0 Yes Univer s 75 mg 6-15 ity of tablet 00:00: [address] clopidogreL 2020-0 Yes Univer s 75 mg 6-15 ity of tablet 00:00: [address] clopidogreL 2020-0 Yes Univer s 75 mg 6-15 ity of tablet 00:00: [address] clopidogreL 2020-0 Yes Method i (PLAVIX) 75 6-15 st mg tablet 00:00: Hospita 00 l famotidine 2020-0 Yes [facility] (PEPCID) 20 5-05 st MG tablet 00:00[facility] 00 famotidine 2020-0 Yes [facility] (PEPCID) 20 5-05 st MG tablet 00:00: Hospita 00 l famotidine 2020-0 Yes Univers 20 mg 5-05 ity of tablet 00:00: [address] famotidine 2020-0 Yes Univers 20 mg 5-05 ity of tablet 00:00: [address] famotidine 2020-0 Yes Univers 20 mg 5-05 ity of tablet 00:00: [address] famotidine 2019-0 Yes Univers 20 mg 5-05 ity of tablet 00:00: [address] famotidine 2020-0 Yes Methodi (PEPCID) 20 5-05 st MG tablet [facility]:00[facility] l sertraline 2020-0 Yes [facility] (ZOLOFT) 25 4-15 st MG tablet 00:00: [facility] 00 l sertraline 2020-0 Yes Methodi (ZOLOFT) 25 4-15 st MG tablet 00:00: [facility] 00 l SERTraline 2020-0 Yes Univers 50 mg 4-15 ity of tablet 00:00: [address] SERTraline 2019-0 Yes Univers 50 mg 4-15 ity of tablet 00:00: [address] SERTraline 2019-0 Yes Univers 50 mg 4-15 ity of tablet 00:00: [address] SERTraline 2019-0 Yes Univers 50 mg 4-15 ity of tablet 00:00: [address] sertraline 2020-0 Yes Methodi (ZOLOFT) 25 4-15 st MG tablet [facility]:00[facility] l losartan-hy 2020-0 Yes Method i drochloroth 4-01 st iazide 00:00: Hospita (HYZAAR) 00 l 100-25 mg per tablet carvediloL 2020-0 Yes Methodi (COREG) 25 4-01 st MG tablet 00:00: Hospita 00 l losartan-hy 2020-0 Yes Method i drochloroth 4-01 st iazide 00:00: Hospita (HYZAAR) 00 l 100-25 mg per tablet carvediloL 2020-0 Yes Methodi (COREG) 25 4-01 st MG tablet 00:00: Hospita 00 l carvediloL 2020-0 Yes 12.5mg Take 12.5 Univers 25 mg 4-01 mg by ity of tablet 00:00: mouth 2 [place] 00 (two) Medical times Branch daily with meals. losartan-hy 2020-0 Yes Univer s drochloroth 4-01 ity of iazide 00:00: [place] 100-25 mg 00 Medical per tablet Branch carvediloL 2020-0 Yes 12.5mg Take 12.5 Univers 25 mg 4-01 mg by ity of tablet 00:00: mouth 2 [place] 00 (two) Medical times Branch daily with meals. losartan-hy 2020-0 Yes Univer s drochloroth 4-01 ity of iazide 00:00: [place] 100-25 mg 00 Medical per tablet Branch carvediloL 2020-0 Yes 25mg 25 mg 2 Univ ers 25 mg 4-01 (two) ity of tablet 00:00: times [place] 00 daily with Medical meals. Branch losartan-hy 2020-0 Yes Univer s drochloroth 4-01 ity of iazide 00:00: [place] 100-25 mg 00 Medical per tablet Branch carvediloL 2020-0 Yes 12.5mg Take 12.5 Univers 25 mg 4-01 mg by ity of tablet 00:00: mouth 2 [place] (two) Medical times Branch daily with meals. losartan-hy 2020-0 Yes Univer s drochloroth 4-01 ity of iazide 00:00: [place] 100-25 mg 00 Medical per tablet Branch losartan-hy 2020-0 Yes Method i drochloroth 4-01 st iazide 00:00: Hospita (HYZAAR) 00 l 100-25 mg per tablet carvediloL 2020-0 Yes Methodi (COREG) 25 4-01 st MG tablet 00:00: Hospita 00 l atorvastati 2020-0 Yes Method i n (LIPITOR) 3-08 st 10 mg 00:00: Hospita tablet 00 l atorvastati 2020-0 Yes Method i n (LIPITOR) 3-08 st 10 mg 00:00: Hospita tablet 00 l atorvastati 2020-0 Yes Take by Uni vers n 80 mg 3-08 mouth at ity of tablet 00:00: bedtime. [place] [facility] atorvastati 2020-0 Yes Take by Uni vers n 80 mg 3-08 mouth at ity of tablet 00:00: bedtime. [place] [facility] atorvastati 2020-0 Yes Take by Uni vers n 80 mg 3-08 mouth at ity of tablet 00:00: bedtime. [address] atorvastati 2020-0 Yes Take by Uni vers n 80 mg 3-08 mouth at ity of tablet 00:00: bedtime. [address] atorvastati 2020-0 Yes Method i n (LIPITOR) 3-08 st 10 mg 00:00: Hospita tablet 00 l albuterol 2019-0 Yes Q.5D Inhale 2 Meth natasha sulfate 3-20 (two) st (VENTOLIN 12:27: times a Hospi ta HFA INHL) 54 day. l acetaminoph 2019-0 Yes Take by Met hodi en (TYLENOL 3-[address] ARTHRITIS 12:27: Hospita ORAL) 54 l omega-3s/dh 2019-0 Yes Take by Met hodi a/epa/fish 3-[address] oil (OMEGA 12:27: Hospita 3 ORAL) 54 l calcium 2019-0 Yes Take by Methodi carb,gluc/m 3-[address] ag ox,gluc 12:27: Hospita (CALCIUM 54 l MAGNESIUM ORAL) ubidecareno 2019-0 Yes Take by Met hodi ne (CO Q-10 3-[address] ORAL) 12:27: Hospita 54 l albuterol 2019-0 Yes Q.5D Inhale 2 Meth natasha sulfate 3-20 (two) st (VENTOLIN 12:27: times a Hospi ta HFA INHL) 54 day. l acetaminoph 2019-0 Yes Take by Met hodi en (TYLENOL 3-[address] ARTHRITIS 12:27: Hospita ORAL) 54 l omega-3s/dh 2019-0 Yes Take by Met hodi a/epa/fish 3-[address] oil (OMEGA 12:27: Hospita 3 ORAL) 54 l calcium 2019-0 Yes Take by Methodi carb,gluc/m 3-[address] ag ox,gluc 12:27: Hospita (CALCIUM 54 l MAGNESIUM ORAL) ubidecareno 2019-0 Yes Take by Met hodi ne (CO Q-10 3-[address] ORAL) 12:27: Hospita 54 l albuterol 2019-0 Yes Q.5D Inhale 2 Meth natasha sulfate 3-20 (two) st (VENTOLIN 12:27: times a Hospi ta HFA INHL) 54 day. l acetaminoph 2019-0 Yes Take by Met gustavo en (TYLENOL 3-[address] ARTHRITIS 12:27: Hospita ORAL) 54 l omega-3s/dh 2018-0 Yes Take by Met hodi a/epa/fish 3-[address] oil (OMEGA 12:27: Hospita 3 ORAL) 54 l calcium 2018-0 Yes Take by Methodi carb,gluc/m 3-[address] ag ox,gluc 12:27: Hospita (CALCIUM 54 l MAGNESIUM ORAL) ubidecareno 0 Yes Take by Met gustavo ne (CO Q-10 3-[address] ORAL) 12:27: Hospita 54 l ospemifene 2017-08 Yes 1{tbl} Q2D Take 1 Met hodi (OSPHENA) 0-[address] 60 mg 00:00: mouth Hospita tablet 00 every l other day. ospemifene 2017-08 Yes 1{tbl} Q2D Take 1 Met hodi (OSPHENA) 0-[address] 60 mg 00:00: mouth Hospita tablet 00 every l other day. ospemifene 2017-08 Yes 1{tbl} Q2D Take 1 Met hodi (OSPHENA) 0-[address] 60 mg 00:00: mouth Hospita tablet 00 every l other day. betamethaso 2017- Yes Method i ne 04-[address] st dipropionat 00:00: Hospit a e 00 l (DIPROLENE) 0.05 % ointment betamethaso 2017- Yes Method i ne 04-06 [facility] dipropionat 00:00: Hospit a e 00 l (DIPROLENE) 0.05 % ointment betamethaso 2017-0 Yes Method i ne 9- st dipropionat 00:00: Hospit a e 00 l (DIPROLENE) 0.05 % ointment amLODIPine Yes 10mg QD Take 10 mg M ethodi (NORVASC) 7-[address] 10 mg 00:00: every Hospita tablet 00 evening. l amLODIPine Yes 10mg QD Take 10 mg M ethodi (NORVASC) 7-[address] 10 mg 00:00: every Hospita tablet 00 evening. l amLODIPine 2018-0 Yes 10mg QD Take 10 mg M ethodi (NORVASC) 7-[address] 10 mg 00:00: every Hospita tablet 00 evening. l atorvastati Yes Method i n (LIPITOR) 7-13 st 10 MG 00:00: Hospita tablet 00 l atorvastati Yes Method i n (LIPITOR) 7-13 st 10 MG 00:00: Hospita tablet 00 l atorvastati Yes Method i n (LIPITOR) 7-13 st 10 MG 00:00: Hospita tablet 00 l Immunizations Ordered Filled Immunization Date Status Comments [facility] e Immunization Name Name Zoster, Recombinant [...] Completed Unive rsity of PFIZER VACCINE 00:00:00 [facility] SARS-COV-2 COVID-19 2020-11-08 Completed Unive rsity of PFIZER VACCINE 00:00:00 [facility] SARS-COV-2 COVID-19 2020-11-08 Completed Unive rsity of PFIZER VACCINE 00:00:00 [facility] SARS-COV-2 COVID-19 2020-11-08 Completed Unive rsity of PFIZER VACCINE 00:00:00 [facility] SARS-COV-2 COVID-19 2020-10-18 Completed Unive rsity of PFIZER VACCINE 00:00:00 [facility] SARS-COV-2 COVID-19 2020-10-18 Completed Unive rsity of PFIZER VACCINE 00:00:00 [facility] SARS-COV-2 COVID-19 2020-10-18 Completed Unive rsity of PFIZER VACCINE 00:00:00 [facility] SARS-COV-2 COVID-19 2020-10-18 Completed Unive rsity of PFIZER VACCINE 00:00:00 [facility] Vital Signs Vital Name Observation Time Observation Value Comments Source Systolic blood 2022-08-13 18:08:00 137 mm[Hg] [facility] Diastolic blood 2022-08-13 18:08:00 80 mm[Hg] [facility] Heart rate 2022-08-13 18:08:00 98 /min [facility] temperature 2022-08-13 18:08:00 35.72 Pura [facility] Respiratory rate 2022-08-13 18:08:00 19 /min [facility] Body height 2022-08-13 18:08:00 154.9 cm [facility] weight 2022-08-13 18:08:00 74.934 [facility] BMI 2022-08-13 18:08:00 31.21 kg/m2 [facility] Oxygen saturation in 2022-08-13 18:08:00 95 /min [facility] Arterial blood by Pulse oximetry Body height 2022-06-03 15:58:00 154.9 cm [facility] Body weight 2022-06-03 15:58:00 70.761 [facility] BMI 2022-06-03 15:58:00 29.48 kg[facility]m2 [facility] Systolic blood 2022-03-26 18:14:00 127 mm[Hg] [facility] Diastolic blood 2022-03-26 18:14:00 68 mm[Hg] [facility] Heart rate 2022-03-26 18:14:00 61 /min [facility] Body temperature 2022-03-26 18:14:00 35.72 [facility] Respiratory rate 2022-03-26 18:14:00 18 /min [facility] Body height 2022-03-26 18:14:00 154.9 cm [facility] Body weight 2022-03-26 18:14:00 [facility]852 [facility] 2022-03-26 18:14:00 29.51 kg/m2 [facility] h Oxygen saturation in 2022-03-26 18:14:00 94 /min [facility] Arterial blood by Pulse oximetry Systolic blood 2021-03-13 15:21:00 120 mm[Hg] Univer sity of pressure [place] [facility] Diastolic blood 2021-03-13 15:21:00 62 mm[Hg] Unive rsity of pressure [place] [facility] Heart rate 2021-03-13 15:21:00 57 /min [facility] [place] [facility] Respiratory rate 2021-03-13 15:21:00 23 /min Univ ersity of [place] [facility] Oxygen saturation in 2021-03-13 15:21:00 97 /min University of Arterial blood by [place] [employer] Pulse oximetry Branch Body temperature 2021-03-13 14:55:00 36.33 Pura Univ ersity [facility] [place] [facility] Body height 2021-03-12 13:15:00 152.4 cm [facility] [place] [facility] Body weight 2021-03-12 13:15:00 68.04 kg [facility] [place] [facility] BMI 2021-03-12 13:15:00 29.29 kg/m2 [facility] [place] [facility] Systolic blood 2021-03-13 15:03:00 109 mm[Hg] Univer sity of pressure [place] [facility] Diastolic blood 2021-03-13 15:03:00 51 mm[Hg] Unive rsity of pressure [place] [facility] Heart rate 2021-03-13 14:55:00 50 /min [facility] [place] [facility] Body temperature 2021-03-13 14:55:00 36.33 Pura Univ ersity [facility] [place] [facility] Respiratory rate 2021-03-13 14:55:00 21 /min Univ ers[facility] [place] [facility] Oxygen saturation in 2021-03-13 14:55:00 98 /min University of Arterial blood by [employer] Pulse oximetry Branch Body height 2021-03-12 13:15:00 152.4 cm [facility] [place] [facility] Body weight 2021-03-12 13:15:00 [facility] 2021-03-12 13:15:00 29.29 kg/m2 [facility] Systolic (mm Hg) 2021-02-26 15:24:00 Luke rial Billy Diastolic (mm Hg) 2021-02-26 15:24:00 Mem orial Valentine Heart Rate 2021-02-26 15:24:00 [facility] Respitory Rate 2021-02-26 15:24:00 Memori al Valentine Height 2021-02-26 15:24:00 154.94 cm [facility] Billy Weight 2021-02-26 15:24:00 [facility] Billy BMI Calculated 2021-02-26 15:24:00 Memori al Billy Systolic (mm Hg) 2021-01-18 14:55:00 Luke rial Valentine Diastolic (mm Hg) 2021-01-18 14:55:00 Mem orial Billy Heart Rate 2021-01-18 14:55:00 [facility] Billy Respitory Rate 2021-01-18 14:55:00 Memori al Valentine Height 2021-01-18 14:55:00 152.4 cm [facility] Valentine Weight 2021-01-18 14:55:00 [facility] Valentine BMI Calculated 2021-01-18 14:55:00 Memori al Billy Systolic (mm Hg) 2020-10-30 18:47:00 Luke rial Valentine Diastolic (mm Hg) 2020-10-30 18:47:00 Mem orial Valentine Heart Rate 2020-10-30 18:47:00 [facility] Billy Respitory Rate 2020-10-30 18:47:00 Memori al Billy Height 2020-10-30 18:47:00 154.94 cm [facility] Billy Weight 2020-10-30 18:47:00 [facility] Billy BMI Calculated 2020-10-30 18:47:00 Memori al Valentine Systolic (mm Hg) 2020-06-13 16:58:00 Luke rial Billy Diastolic (mm Hg) 2020-06-13 16:58:00 Mem orial Valentine Heart Rate 2020-06-13 16:58:00 [facility] Valentine Respitory Rate 2020-06-13 16:58:00 Memori al Valentine Height 2020-06-13 16:58:00 152.4 cm [facility] Billy Weight 2020-06-13 16:58:00 [facility] Valentine BMI Calculated 2020-06-13 16:58:00 Memori al Billy Systolic (mm Hg) 2020-05-16 16:29:00 Luke ayesha Valentine Diastolic (mm Hg) 2020-05-16 16:29:00 Mem orial Billy Heart Rate 2020-05-16 16:29:00 [facility] Billy Respitory Rate 2020-05-16 16:29:00 Memori al Billy Height 2020-05-16 16:29:00 152.4 cm [facility] Billy Weight 2020-05-16 16:29:00 [facility] Billy BMI Calculated 2020-05-16 16:29:00 Memori al Valentine Procedures Procedure Date / Time Performing Source Performed Clinician EGD (ENDO) 2021-03-13 [facility] 14:37:38 [facility] EGD (ENDO) 2021-03-13 [facility] 14:37:38 [facility] ESOPHAGOGASTRODUODENOSCOPY 2021-03-13 [facility] 14:25:00 Raul Chan [facility] DAY SURGERY - ADC 2021-03-13 [facility] 05:01:00 Unassigned, No [place] [facility] CONSENT/REFUSAL FOR DIAGNOSIS AND 2021-03-12 [facility] 15:43:58 Unassigned, No [place] [facility] CONSENT/REFUSAL FOR DIAGNOSIS AND 2021-03-12 [facility] 15:43:58 Unassigned, No [place] [facility] ASSIGNMENT OF BENEFITS 2021-03-12 Doctor [facility] y of 15:43:40 Unassigned, No [place] [facility] ASSIGNMENT OF BENEFITS 2021-03-12 Doctor [facility] y of 15:43:40 Unassigned, No [place] [facility] CONSENT/REFUSAL FOR DIAGNOSIS AND 2021-03-12 [facility] 15:43:13 Unassigned, No [place] [facility] CONSENT/REFUSAL FOR DIAGNOSIS AND 2021-03-12 [facility] 15:43:13 Unassigned, No [place] [facility] ASSIGNMENT OF BENEFITS 2021-03-12 Doctor [facility] y of 15:42:54 Unassigned, No [place] [facility] ASSIGNMENT OF BENEFITS 2021-03-12 Doctor Universit y of 15:42:54 Unassigned, No [place] [facility] EXTERNAL PROVIDER RECORDS 2021-03-05 Doctor Univer sity of 05:01:00 Unassigned, No [place] [facility] EXTERNAL PROVIDER RECORDS 2021-03-05 Doctor Univer sity of 05:01:00 Unassigned, No [place] [facility] US ABDOMEN COMPLETE 2020-07-24 [facility] o f 19:38:29 Raul Chan [place] [facility] ASSIGNMENT OF BENEFITS 2020-07-24 Doctor Universit y of 18:35:51 Unassigned, No [place] [facility] Plan of Care Planned Activity Planned Date Details Comments Source Future Scheduled 2022-11-07 COVID-19 VACCINE (#1) [facility] Test 21:18:01 [code = COVID-19 VACCINE (#1)] Future Scheduled 2022-11-07 Hepatitis C screening [facility] Test 21:18:01 (procedure) [code = 197097034] Future Scheduled 2022-11-07 BREAST CANCER [facility] Test 21:18:01 SCREENING [code = BREAST CANCER SCREENING] Future Scheduled 2022-11-07 COLONOSCOPY SCREENING [facility] Test 21:18:01 [code = COLONOSCOPY SCREENING] Future Scheduled 2022-11-07 SHINGLES VACCINES (1 Met [facility] Test 21:18:01 of 2) [code = SHINGLES VACCINES (1 of 2)] Future Scheduled 2022-11-07 65+ [facility]OCCAL [facility] Test 21:18:01 VACCINE (1 - PCV) [code = 65+ PNEUMOCOCCAL VACCINE (1 - PCV)] Future Scheduled 2022-11-07 INFLUENZA VACCINE Method [facility] Test 21:18:01 [code = INFLUENZA VACCINE] Future Scheduled 2022-08-11 COVID-19 VACCINE (#1) [facility] Test 07:39:47 [code = COVID-19 VACCINE (#1)] Future Scheduled 2022-08-11 Hepatitis C screening [facility] Test 07:39:47 (procedure) [code = [id number]] Future Scheduled 2022-08-11 BREAST CANCER [facility] Test 07:39:47 SCREENING [code = BREAST CANCER SCREENING] Future Scheduled 2022-08-11 COLONOSCOPY SCREENING [facility] Test 07:39:47 [code = COLONOSCOPY SCREENING] Future Scheduled 2022-08-11 SHINGLES VACCINES (1 Met [facility] Test 07:39:47 of 2) [code = SHINGLES VACCINES (1 of 2)] Future Scheduled 2022-08-11 65+ PNEUMOCOCCAL Methodi [facility] Test 07:39:47 VACCINE (1 - PCV) [code = 65+ PNEUMOCOCCAL VACCINE (1 - PCV)] Future Scheduled 2022-08-11 INFLUENZA VACCINE Method [facility] Hospital Test 07:39:47 [code = INFLUENZA VACCINE] Future Scheduled 2022-05-22 HEPATITIS B VACCINES Met [facility] Test 12:11:11 (1 of 3 - 3-dose series) [code = HEPATITIS B VACCINES (1 of 3 - 3-dose series)] Future Scheduled 2022-05-22 COVID-19 VACCINE (#1) [facility] Test 12:11:11 [code = COVID-19 VACCINE (#1)] Future Scheduled 2022-05-22 Hepatitis C screening [facility] Test 12:11:11 (procedure) [code = [id number]] Future Scheduled 2022-05-22 BREAST CANCER [facility] Test 12:11:11 SCREENING [code = BREAST CANCER SCREENING] Future Scheduled 2022-05-22 COLONOSCOPY SCREENING [facility] Test 12:11:11 [code = COLONOSCOPY SCREENING] Future Scheduled 2022-05-22 SHINGLES VACCINES (1 Met [facility] Test 12:11:11 of 2) [code = SHINGLES VACCINES (1 of 2)] Future Scheduled 2022-05-22 65+ [facility]OCCAL [facility] 12:11:11 VACCINE (1 - PCV) [code = 65+ PNEUMOCOCCAL VACCINE (1 - PCV)] Future Scheduled 2022-05-22 INFLUENZA VACCINE [facility] Test 12:11:11 [code = INFLUENZA VACCINE] Encounters Start End Encounter Admission Attending Care Care Encounter Source Date/Time Date/Time Type Type Clinicians Facility Department ID 2022-10-[address] [facility] [id number] [place] 15:52:48 [id number] [facility] 2022-10-[address] [facility] [id number] [place] 03:12:26 [id number] [facility] 2022-10-[address] [facility] [id number] [place] 13:05:19 [id number] [facility] 2022-09-[address] [facility] [id number] [place] 08:01:57 [id number] [facility] 2022-08-[address] [facility] [id number] [place] 17:28:20 [id number] [facility] 2022-08-[address] [facility] [id number] [place] 12:56:17 [id number] [facility] 2022-07-[address] [facility] [id number] [place] 10:58:50 [id number] [facility] 2022-06-[address] [facility] [id number] [place] 08:00:04 [id number] [facility] 2022-05-[address] [facility] [id number] [place] 15:59:49 [id number] [facility] 2021-10-04 [id number] [place] 08:11:26 LOIDA [facility] 2021-06-03 Outpatient R [facility] [id number] Univers 13:13:12 RAUL [facility] 2023-01-12 2023-01-12 [facility] [id number] [place] 09:00:00 09:00:00 [facility] 2022-12-02 2022-12-02 [facility] [id number] [place] 10:45:00 10:45:00 LOIDA [facility] 2022-11-12 2022-11-12 Outpatient MATILDE-AVENDA [facility] [id number] [place] 14:00:00 14:00:00 JAYDEN LOPEZ [facility] 2022-08-13 2022-08-13 Outpatient MATILDE-AVENDA [facility] [id number] [facility] 10:01:00 23:59:00 JAYDEN LOPEZ 2022-08-13 2022-08-13 Office Viktor UTP [id number] [place] 14:00:00 14:00:00 Visit Jayden lopez [id number] [facility] [id number] 2022-06-03 2022-06-03 Office Jluis UTP 6400 [id number] [place] 10:45:00 11:37:[address] [id number] Health [id number] 2022-05-22 2022-05-22 Telemedici Angie UTP 6410 [id number] [place] 09:30:00 10:45:[address] [id number] Health [id number] 2022-05-14 2022-05-14 Telemedici Matilde-Avenda UTP 6410 [id number] [place] 15:00:00 16:16:[address] [id number] Health [id number] 2022-04-23 2022-04-23 Outpatient MATILDE-AVENDA [facility] [id number] [place] 13:00:00 13:00:00 NOJAYDEN a [facility] 2022-04-11 2022-04-11 Outpatient MATILDE-AVENDA [facility] [id number] [facility] 08:10:00 23:59:00 MARCELINA LOPEZL 2022-03-26 2022-03-26 Office Matilde-Avenda UTP [id number] [id number] [place] 13:00:00 14:36:[address] [id number] Health [id number] 2022-02-19 2022-02-19 Telephone Carolyn Parkinson UTP 6400 [id number] [place] 00:00:00 00:00:[address] [id number] Health [id number] [id number] 3 2022-02-06 2022-02-06 Office Jluis UTP 6400 1.2.840.114 [id number] [place] 15:30:00 16:55:[address] 350.1.13.58 Health 9.2.7.2.686 [id number] 3 2021-12-19 2021-12-19 Office LUIS M Bazzi 6400 1.2.840.114 [id number] [place] 13:45:00 15:18:[address] 350.1.13.58 Health 9.2.7.2.686 [id number] 3 2021-11-20 2021-11-20 Office LUIS M Bazzi 6400 1.2.840.114 [id number] [place] 14:30:00 14:51:[address] 350.1.13.58 Health 9.2.7.2.686 [id number] 3 2021-10-30 2021-10-30 Office LUIS M Bazzi 6400 1.2.840.114 [id number] [place] 14:00:00 14:59:[address] 350.1.13.58 Health 9.2.7.2.686 [id number] 3 2021-09-18 2021-09-18 Office LUIS M Bazzi 6400 1.2.840.114 [id number] [place] 13:15:00 14:17:[address] 350.1.13.58 Health 9.2.7.2.686 [id number] 2021-04-17 2021-04-17 Outpatient MHIE MHIE [id number] [facility] 13:00:00 13:00:00 07 lily Cervantes 2021-04-09 2021-04-09 Outpatient MHIE MHIE [id number] [facility]oria 13:30:00 13:30:00 09 lily Cervantes 2021-03-13 2021-03-13 [facility] [id number] [facility] 08:04:00 10:55:00 Raul Todd 350.1.13.10 itthaddeus [place] 4.2.7.2.686 [facility] [id number] [address] 2021-03-13 2021-03-13 Surgery [facility] [id number] Univers 09:35:00 10:09:00 Bri heathvikram Mai 350.1.13.10 ity of [place] 4[place]7.2.686 [place] [id number] [facility] [address] 2021-03-13 2021-03-13 Orders Doctor AYAKA 1.2.840.114 [id number] Univers 00:00:00 00:00:00 Only Unassigned, [place] 350.1.13.10 ity of [facility] 4.2.7.2.686 Gigi as [phone] [facility] 009 Branch 2021-03-12 2021-03-12 Laboratory Only, Adc Test [facility] 1.2.840. 114 [id number] Univers 10:45:42 11:00:42 Only Raul Hinkle 350.1.1 3.10 ity [place].2.[place] [id number] [facility] 353 [address] 2021-03-12 2021-03-12 Outpatient R CHARAFEDDIN [facility] [id number] Univers 10:45:00 10:45:00 Laine RAUL ity o f [facility] 2021-02-26 2021-02-27 Outpatient nullFlavo MNA [id number] [facility] 15:15:00 04:59:59 r Neurology 08 l Shilpa Cervantes 2021-01-18 2021-01-19 Outpatient nullFlavo MNA [id number] [facility] 14:45:00 04:59:59 r Neurology 06 l Shilpa Cervantes 2021-01-11 2021-01-13 Outside nullFlavo MNA [id number] [facility] 15:49:47 04:59:59 Medical r Neurology 01 l Records Shilpa Porterann 2020-12-26 2020-12-28 Outside nullFlavo MNA [id number] [facility]oria 20:30:12 04:59:59 Medical r Neurology 00 l Records Shilpa Cervantes 2020-12-12 2020-12-13 Outpatient nullFlavo MNA [id number] [facility] 21:15:00 04:59:59 r Neurology 05 l Shilpa Cervantes 2020-12-12 2020-12-12 Ambulatory nullFlavo MNA [id number] Mem[facility] 15:30:00 15:30:00 Pre-Reg r Neurology 04 l Shilpa Cervantes 2020-11-08 2020-11-08 Outpatient R LEO, [facility] [id number] Univers 14:50:00 14:50:00 LUDWIG [facility] 2020-10-30 2020-10-31 Outpatient nullFlavo MNA [id number] [facility] 18:30:00 04:59:59 r Neurology 03 l Shilpa Cervantes 2020-10-18 2020-10-18 Outpatient [facility] [id number] Univers 14:50:00 14:50:00 [facility] 2020-09-13 2020-09-13 Ambulatory nullFlavo MNA [id number] [facility] 19:15:00 19:15:00 Pre-Reg r Neurology 02 l Shilpa Valentine 2020-07-24 2020-07-24 [facility] 1.2.840.114 [id number] 12:42:07 23:59:00 Encounter Raul heath 350.1.13.10 [place] 4.2.7.2.686 [place] [id number] [facility] 2020-07-24 2020-07-24 [facility] 1.2.840.114 [id number] [facility] 12:42:07 23:59:00 Encounter [facility]13.10 [facility] 4.2.7.2.686 [facility] [id number] [address] 2020-07-24 2020-07-24 Outpatient R [facility] [id number] Univers 00:00:00 00:00:00 RAUL Heath f [facility] 2020-07-24 2020-07-24 Orders Doctor MARLEY 1.2.840.114 [id number] 00:00:00 00:00:00 Only Unassigned, [place] 350.1.13.10 [place] [facility] 4.2.7.2.686 [id number] 2020-07-24 2020-07-24 Orders Doctor AYAKA 1.2.840.114 [id number] 00:00:00 00:00:00 Only Unassigned, BRENTON 350.1.13.10 ity of [place] [facility] 4.2.7.2.686 Gigi as [phone] [facility] 009 Branch 2020-06-13 2020-06-14 Outpatient nullFlavo MNA [id number] [facility] 16:30:00 05:59:59 r Neurology 01 l [facility] 2020-05-16 2020-05-17 Outpatient nullFlavo MNA [id number] [facility] 16:00:00 04:59:59 r Neurology 00 l [place] Valentine 2020-02-09 2020-02-09 Outpatient YANELY DUNLAP [facility] [id number] [place] 00:00:00 00:00:[address] 2020-02-01 2020-02-01 Outpatient YANELY DUNLAP [facility] [id number] [place] 00:00:00 00:00:[address] 2020-01-23 2020-01-23 Outpatient ELIOT [facility] [id number] [place] 00:00:00 00:00:00 AURELIANO [address] 2020-01-23 2020-01-23 Outpatient ELIOT [facility] [id number] [place] 00:00:00 00:00:00 AURELIANO [address] Results Test Description Test Time Test Comments Results Result [facility] e Comments US ABDOMEN 2020-07-04 HISTORY: ? Abdominal Univ ersity of COMPLETE 2 pain. TECHNIQUE: [facility] dicde 19:41:33 Upper abdominal Branch organs were evaluated [...] pole of the right kidney,otherwise normal study. [facility], Radiant Results Inft User - 07/24/2020 1:42 [...]
[2022-11-07] MEDS ORDERED: AMITRIPTYLINE 25 MG TAB PO PRN (23:25)
[2022-11-07] MEDS ORDERED: hydrOXYzine HCL 25 MG TAB PO PRN (23:25)
[2022-11-08] MEDS: TRAMADOL HCL 50 MG TAB PO PRN ×2 (00:13→11:15)
[2022-11-08] MEDS: cloNIDine HCL 0.1 MG TAB PO PRN ×2 (01:38→11:44)
[2022-11-08 03:42] LABS: Absolute Lymphocytes (CBC) 2.4 K/uL (0.7-4.9); Hematocrit 30.6 % (36.0-45.0); Lymphocytes % 24.5 % (15.3-44.8); MCV 83.4 fL (80-100); MPV 7.4 fL (7.6-11.3); RBC Red Blood Cell Count 3.66 M/uL (3.86-4.86)
[2022-11-08 03:58] LABS: C-Reactive Protein 6.57 mg/L (<3.00); Potassium 3.9 mEq/L (3.5-5.1)
[2022-11-08] MEDS ORDERED: BETAMETHASONE DIP 0.05% CREAM TOP PRN (10:31)
[2022-11-08] MEDS ORDERED: ALBUTEROL INHALER 60 PUFF/8 GM IH PRN (10:31)
[2022-11-08] MEDS ORDERED: TRAMADOL HCL 50 MG TAB PO PRN (10:31)
[2022-11-08] MEDS: predniSONE 5 MG TAB PO SCH (11:54)
[2022-11-08] MEDS: ROPINIROLE HCL 0.25 MG TAB PO SCH ×2 (13:01→20:33)
[2022-11-08] MEDS: PIPER TAZO 3.375 GM in NA CHLORIDE 0.9% 100 ML IV SCH (16:06)
[2022-11-08] MEDS: ATORVASTATIN 40 MG TAB PO SCH (20:31)
[2022-11-08] MEDS: GUANFACINE HCL 3 MG PO SCH (20:33)
[2022-11-08] MEDS: BUDESONIDE 0.5 MG/2 ML NEB NEB SCH (20:35)
[2022-11-09] MEDS: PIPER TAZO 3.375 GM in NA CHLORIDE 0.9% 100 ML IV SCH ×3 (04:14→17:11)
[2022-11-09] MEDS: predniSONE 5 MG TAB PO SCH (08:56)
[2022-11-09] MEDS: ROPINIROLE HCL 0.25 MG TAB PO SCH ×3 (08:56→21:25)
[2022-11-09] MEDS: TRAMADOL HCL 50 MG TAB PO PRN (08:56)
[2022-11-09] MEDS ORDERED: AMITRIPTYLINE 10 MG TAB PO SCH (09:00)
[2022-11-09] MEDS ORDERED: SPIRONOLACTONE 25 MG TABLET PO SCH (09:00)
[2022-11-09] MEDS ORDERED: CLOPIDOGREL 75 MG TABLET PO SCH (09:00)
[2022-11-09] MEDS ORDERED: carvediloL 12.5 MG TAB PO SCH (09:00)
[2022-11-09] MEDS ORDERED: PANTOPRAZOLE 40MG TABLET PO SCH (09:00)
[2022-11-09] MEDS ORDERED: SERTRALINE HCL 50 MG TAB PO SCH (09:00)
[2022-11-09] MEDS ORDERED: LOSARTAN/HCTZ 50-12.5 PO SCH (09:00)
[2022-11-09] MEDS ORDERED: ENOXAPARIN 30 MG/0.3 ML SQ SCH (09:00)
[2022-11-09] MEDS: HYDRALAZINE HCL 25 MG TABLET PO SCH ×3 (09:08→21:25)
[2022-11-09] MEDS ORDERED: ONDANSETRON 4 MG/2 ML VIAL IV PRN (11:16)
--- NOTE | 2022-11-09 14:01 | P.PN ---
Subjective Date of Service: 11/09/22 Chief Complaint: LOT OF COMPLAINTS. Subjective: New changes L SIDE CHEONDOISM HEADACHES OFF AND ON. NAUSEA, CHRONIC PAIN BP HIGH. SINUS GREEN DISCHARGE LESSER. Review of Systems 10-point ROS is otherwise unremarkable General: Weakness Respiratory: Cough Cardiovascular: Chest Pain (BACK PAIN. ) Physical Examination - Vital Signs Temperature: 97.7 F Blood Pressure: 185/97 Pulse: 83 Respirations: 16 Pulse Ox (%): 96 - Physical Exam General: Mild distress, Moderate distress, Obese HEENT: Atraumatic, PERRLA, EOMI Neck: Supple, JVD not distended Respiratory: Clear to auscultation bilaterally, Normal air movement Cardiovascular: Regular rate/rhythm, Normal S1 S2 Gastrointestinal: Normal bowel sounds, No tenderness Musculoskeletal: No tenderness Integumentary: No rashes Neurological: Normal speech, Normal tone, Normal affect Lymphatics: No axilla or inguinal lymphadenopathy - Studies Microbiology Data (last 24 hrs): 11/08/22 11:40 Sputum Sputum Gram Stain - Final Medications List Reviewed: Yes Assessment And Plan - Current Problems (Diagnosis) (1) Chronic pain Current Visit: Yes Status: Chronic Qualifiers: Chronic pain type: chronic pain syndrome Qualified Code(s): G89.4 - Chronic pain syndrome (2) Temporal pain Current Visit: Yes Status: Acute (3) Polymyalgia Current Visit: Yes Status: Chronic Plan: 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 (4) Atypical chest pain Current Visit: No Status: Acute (5) Malignant essential hypertension Current Visit: No Status: Chronic Plan: SHE HAS HAD THIS FOR LONG TIME SHE ALREADY HAS HAD 24 HOURS URINE TEST BILATERAL RENAL STENTS HAVE NOT WORKED TO STABLIZE THIS. START CATAPRES PATCH MAY NEED CARDIAC CATH. CONSULT DR. SYED. (6) Chronic sinus infection Current Visit: Yes Status: Chronic Plan: SHE HAS BEEN TO MANY ENT DOCTORS. HAS HAD CHRONIC USE OF ANTIBIOTIC NASAL SPRAYS AND RINSE WITHOUT HELP. SHE HAS HAD ANTIFUNGAL NASAL RINSE ALSO IN PAST.
[2022-11-09] MEDS ORDERED: CLONIDINE 0.3 MG/PATCH TD SCH (15:00)
[2022-11-09] MEDS: cloNIDine HCL 0.1 MG TAB PO PRN (15:06)
[2022-11-09] MEDS: BUDESONIDE 0.5 MG/2 ML NEB NEB SCH (19:40)
--- NOTE | 2022-11-09 20:16 | CON ---
Date of Consultation: 11/09/2022 Reason For Consultation: Uncontrolled hypertension and chest pain. History Of Present Illness: This is a 71-year-old female with past medical history of hypertension, asthma, fibromyalgia, presented to the emergency room because of uncontrolled blood pressure. Blood pressure goes up to the high range and is not able to manage it with oral medications. Also, she has been having some chest pain and she feels pressure to her chest. Her blood pressure is elevated. N o history of coronary artery disease or cardiac stent placements. Past Medical History: As outlined above in the HPI. Medications: Refer to reconciliation sheet for detailed list. Allergies: LEVOFLOXACIN. Family History: No premature coronary artery disease or cancer. Social History: She does not smoke or drink. Does not use any drugs. Review of Systems: All systems reviewed and they were negative except what mentioned in HPI. Physical Examination: Vital Signs: Reviewed. Head and Neck: Pupils are equal, reactive to light. Intact eye movements. No JVD. No cervical lym phadenopathy. Neck is supple. Thyroid is not enlarged. Lungs: Clear to auscultation bilaterally. No rhonchi, wheezing, or crackles. No accessory muscle u se. Heart: Regular rate and rhythm. No extra sounds. Abdomen: Soft, nontender. Bowel sounds positive. No organomegaly. No masses or hernia. No rigidi ty or rebound. Extremities: No edema, clubbing, or cyanosis. Intact pulses. Skin: No rash. Neurologic: Alert, awake, oriented x3. No acute focal deficits appreciated. Investigations: Latest blood pressure today was 119/60. Assessment And Recommendations: 1.Uncontrolled blood pressure. Blood pressure is significantly better now with current regimen. Co ntinue current treatment. 2.Chest pain. It is atypical. We will plan for outpatient exercise stress test and an echocardiogr am. Both can be done as an outpatient. 3.Dyslipidemia. Continue statin. Thank you for the consult. /AUREA Voice ID: [id number] Report ID: [id number]
[2022-11-09] MEDS: GUANFACINE HCL 3 MG PO SCH (21:00)
[2022-11-09] MEDS: ATORVASTATIN 40 MG TAB PO SCH (21:25)
[2022-11-09 22:45] VITALS: O2SAT 98
[2022-11-09 23:32] VITALS: BMI 33.2
[2022-11-10] MEDS: cloNIDine HCL 0.1 MG TAB PO PRN (00:39)
[2022-11-10] MEDS: PIPER TAZO 3.375 GM in NA CHLORIDE 0.9% 100 ML IV SCH (00:40)
[2022-11-10 06:13] VITALS: BP 131/68; TEMP 97.8
--- NOTE | 2022-11-23 21:26 | P.HP ---
Certification for Inpatient Patient admitted to: Inpatient With expected LOS: >2 Midnights Practitioner: I am a practitioner with admitting privileges, knowledge of patient current condition, hospital course, and medical plan of care. Services: Services provided to patient in accordance with Admission requirements found in Title 42 Section 412.3 of the Code of Federal Regulations Patient History Date of Service: 11/23/22 Reason for admission: CHEST PAIN, SHORT OF BREATH History of Present Illness: MATT HAS HAD EXTENSIVE MEDICAL COMPLAINT OVER LAST FEW YEARS. SHE HAD CAROTID STENOSIS BUT NEGATIVE STRESS TEST TWO YEARS AGO. SHE COMES WITH SHORTNESS OF BREATH AND CHEST PAIN THAT IS ATYPICAL. SHE RULES OUT FOR DE BUT BP STAYS VERY HIGH. I PUT HER ON CATAPRESS PATCH IN ADDITION TO FEW OTHER MEDS FOR BP. SHE IS NOW CONTROLLED. I HAD DIAGNOSED HER TO HAVE RENAL ARTERY STENOSIS IN THE PAST BUT STENTS ON BOTH SIDES DID NOT CONTROL HER BP. SHE WILL GET OUTPATIENT CATH OR STRESS TEST WITH DR. SYED. Allergies levofloxacin [From Levaquin] Adverse Reaction (Mild, Verified 03/21/22 15:21) Pain in joints Home medications list reviewed: Yes Home Medications: Atorvastatin Calcium 80 mg PO BEDTIME 10/04/19 Albuterol Sulfate [Ventolin Hfa] 1 spray IH BIDP PRN 12/09/19 Betameth Dip 0.05% [Diprosone 0.05% OINTMENT*] 1 florina TOP BIDP PRN 12/09/19 Clopidogrel Bisulfate [Plavix*] 1 tab PO DAILY 12/09/19 Losartan/Hydrochlorothiazide [Losartan-Hctz 100-25 mg Tab] 1 tab PO DAILY 12/09/19 Sertraline [Zoloft*] 50 mg PO DAILY 12/09/19 Carvedilol [Coreg] 12.5 mg PO DAILY 12/16/19 Pantoprazole Sodium [Protonix] 40 mg PO DAILY 10/28/20 Spironolactone 50 mg PO DAILY 10/28/20 Amitriptyline HCl 10 mg PO DAILY 11/08/22 Budesonide 2 ml NEB BEDTIME 11/08/22 Methylprednisolone, Micronized [Methylprednisolone] 5 mg IH BID 11/08/22 Tramadol HCl [Ultram] 50 mg PO BEDTIME PRN 11/08/22 Clonidine Patch [Catapres-Tts 3*] 0.3 mg TD EVERY 7TH DAY #30 11/10/22 Hydralazine [Apresoline*] 25 mg PO TID #90 tab 11/10/22 - Past Medical/Surgical History Has patient received pneumonia vaccine in the past: Yes Diabetic: No -: HTN -: COPD -: Fibromyalgia -: renal artery blockage -: osteoarthritis -: carotid blockage -: Eosinophilic Asthma -: Tonsillectomy -: Appendectomy -: Tubal ligation -: Total knee replacement, Right -: JOSE ALBERTO renal artery stent -: Sinus Sx x2 - Family History Father -: Heart disease, Hypertension, Lung disease, Cancer, Kidney disease Notes: prostate CA, rectal CA Mother -: Liver disease Notes: liver cirrhosis Sister -: Heart disease - Social History Smoking Status: Former smoker Alcohol use: No CD- Drugs: No Caffeine use: Yes Place of Residence: Home Review of Systems 10-point ROS is otherwise unremarkable General: Weakness Physical Examination - Vital Signs Temperature: 97.8 F Blood Pressure: 131/68 Pulse: 75 Respirations: 19 Pulse Ox (%): 91 - Physical Exam General: Alert, In no apparent distress HEENT: Atraumatic, PERRLA, Mucous membr. moist/pink, EOMI, Sclerae nonicteric Neck: Supple, 2+ carotid pulse no bruit, No LAD, Without JVD or thyroid abnormality Respiratory: Clear to auscultation bilaterally, Normal air movement Cardiovascular: Regular rate/rhythm, Normal S1 S2 Gastrointestinal: Normal bowel sounds, No tenderness Musculoskeletal: No tenderness Integumentary: No rashes Neurological: Normal gait, Normal speech, Normal strength at 5/5 x4 extr, Normal tone, Normal affect Lymphatics: No axilla or inguinal lymphadenopathy Assessment and Plan - Problems (Diagnosis) (1) Chronic pain Status: Chronic Qualifiers: Chronic pain type: chronic pain syndrome Qualified Code(s): G89.4 - Chronic pain syndrome (2) Temporal pain Status: Acute (3) Polymyalgia Status: Chronic Plan: HAS BEEN WITH [facility] FOR LONG DURATION. (4) Atypical chest pain Status: Acute (5) Malignant essential hypertension Status: Chronic Plan: SHE HAS HAD THIS FOR LONG TIME SHE ALREADY HAS HAD 24 HOURS URINE TEST BILATERAL RENAL STENTS HAVE NOT WORKED TO STABLIZE THIS. START CATAPRES PATCH MAY NEED CARDIAC CATH. CONSULT DR. SYED. (6) Chronic sinus infection Status: Chronic Plan: SHE HAS BEEN TO MANY ENT DOCTORS. HAS HAD CHRONIC USE OF ANTIBIOTIC NASAL SPRAYS AND RINSE WITHOUT HELP. SHE HAS HAD ANTIFUNGAL NASAL RINSE ALSO IN PAST. - Advance Directives Does patient have a Living Will: Yes Does patient have a Durable POA for Healthcare: Yes
--- NOTE | 2022-11-23 21:28 | P.DS ---
Admission Date: 11/09/22 Discharge Date: 11/23/22 Disposition: ROUTINE DISCHARGE Discharge Condition: FAIR Reason for Admission: CHEST PAIN, SHORT OF BREATH - Problems (1) Chronic pain Status: Chronic Qualifiers: Chronic pain type: chronic pain syndrome Qualified Code(s): G89.4 - Chronic pain syndrome (2) Temporal pain Status: Acute (3) Polymyalgia Status: Chronic (4) Atypical chest pain Status: Acute (5) Malignant essential hypertension Status: Chronic (6) Chronic sinus infection Status: Chronic Brief History of Present Illness: MATT HAS HAD EXTENSIVE MEDICAL COMPLAINT OVER LAST FEW YEARS. SHE HAD CAROTID STENOSIS BUT NEGATIVE STRESS TEST TWO YEARS AGO. SHE COMES WITH SHORTNESS OF BREATH AND CHEST PAIN THAT IS ATYPICAL. SHE RULES OUT FOR SD BUT BP STAYS VERY HIGH. I PUT HER ON CATAPRESS PATCH IN ADDITION TO FEW OTHER MEDS FOR BP. SHE IS NOW CONTROLLED. I HAD DIAGNOSED HER TO HAVE RENAL ARTERY STENOSIS IN THE PAST BUT STENTS ON BOTH SIDES DID NOT CONTROL HER BP. SHE WILL GET OUTPATIENT CATH OR STRESS TEST WITH DR. SYED. Hospital Course: HPI SHE HAS HAD CHEST PAIN AND DYSPNEA. SHE ALWAYS HAS MANY COMPLAINTS. SHE HAD NORMAL ST TEST TWO YEARS AGO. SHE WILL REDO WORK UP AT DR. SYED OFFICE. SHE IS STABLE TO GO HOME AND FU WITH DR. POWERS FOR TEMPORAL ARTERY BIOPSY FOR PAIN L SIDE THAT IS MILD. SHE ALREADY IS ON STEROIDS. FOLLOWING ARE HER MEDICAL ISSUES. 2018 Fibromyalgia [M79.7 (729.1)] 2018 Essential (primary) hypertension [I10 (401.9)] 2018 Dizziness and giddiness [R42 (780.4)] 2018 Iron deficiency anemia [D50.9 (280.9)] 2018 Occlusion and stenosis of unspecified carotid artery [I65.29 (433.10)] 2018 Chronic obstructive pulmonary disease [J44.9 (496) 0.3] 2018 HTN (hypertension) [I10 (401.9)] 2018 Lumbar spine pain [M54.50 (724.2)] 2020 Carotid occlusion, bilateral [I65.23 (433.10, 433.30)] moderate. moderate. 2020 Bilateral renal artery stenosis [I70.1 (440.1) 0.3] JOSE ALBERTO STENTS. JOSE ALBERTO STENTS. 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 SPECKLED 1:40 NEG SSA, NEG SSB, NEG RA. 2020 Carotid stenosis, right [I65.21 (433.10)] CATH 40-50% bilat. CATH 40-50% bilat. 2020 Seizure disorder [G40.909 (345.90) 0.2] Last addressed: Never 2020 Atypical facial pain [G50.1 (350.2)] 2022 Eosinophilic asthma [J82.83 (518.3)] 2022 Uncontrolled hypertension [I10 (401.9)] 2022 Dyspnea [R06.00 (786.09)] Vital Signs/Physical Exam: Temp Pulse Resp BP Pulse Ox 97.8 F 75 19 131/68 91 11/23/22 21:25 11/23/22 21:25 11/23/22 21:25 11/23/22 21:25 11/23/22 21:25 Laboratory Data at Discharge: WBC 9.90 thou/uL (4.3-10.9) 11/08/22 03:12 Hgb 10.3 g/dL (12.0-15.0) L 11/08/22 03:12 Hct 30.6 % (36.0-45.0) L 11/08/22 03:12 Plt Count 216 thou/uL (152-406) 11/08/22 03:12 Sodium 136 mEq/L (136-145) 11/08/22 03:12 Potassium 3.9 mEq/L (3.5-5.1) 11/08/22 03:12 BUN 32 mg/dL (7-18) H 11/08/22 03:12 Creatinine 1.34 mg/dL (0.55-1.02) H 11/08/22 03:12 Glucose 128 mg/dL (74-106) H 11/08/22 03:12 Home Medications: Atorvastatin Calcium 80 mg PO BEDTIME 10/04/19 Albuterol Sulfate [Ventolin Hfa] 1 spray IH BIDP PRN 12/09/19 Betameth Dip 0.05% [Diprosone 0.05% OINTMENT*] 1 florina TOP BIDP PRN 12/09/19 Clopidogrel Bisulfate [Plavix*] 1 tab PO DAILY 12/09/19 Losartan/Hydrochlorothiazide [Losartan-Hctz 100-25 mg Tab] 1 tab PO DAILY 12/09/19 Sertraline [Zoloft*] 50 mg PO DAILY 12/09/19 Carvedilol [Coreg] 12.5 mg PO DAILY 12/16/19 Pantoprazole Sodium [Protonix] 40 mg PO DAILY 10/28/20 Spironolactone 50 mg PO DAILY 10/28/20 Amitriptyline HCl 10 mg PO DAILY 11/08/22 Budesonide 2 ml NEB BEDTIME 11/08/22 Methylprednisolone, Micronized [Methylprednisolone] 5 mg IH BID 11/08/22 Tramadol HCl [Ultram] 50 mg PO BEDTIME PRN 11/08/22 Clonidine Patch [Catapres-Tts 3*] 0.3 mg TD EVERY 7TH DAY #30 11/10/22 Hydralazine [Apresoline*] 25 mg PO TID #90 tab 11/10/22 New Medications: Hydralazine [Apresoline*] 25 mg PO TID #90 tab Clonidine Patch [Catapres-Tts 3*] 0.3 mg TD EVERY 7TH DAY #30
== END 2022-11-10 08:36 | disposition home or self-care (01) | DRG 313 ==
LOC: 2ND 23:10 → INTOOBSV 23:10 → OBSVTOIN 11-09 09:34
PROVIDERS: ADMIT Internal Medicine; ATTEND Internal Medicine
DX: R07.89 Other chest pain (principal); I10 Essential (primary) hypertension; E78.5 Hyperlipidemia, unspecified; G89.4 Chronic pain syndrome; M35.3 Polymyalgia rheumatica; J32.9 Chronic sinusitis, unspecified; M79.7 Fibromyalgia; J44.9 Chronic obstructive pulmonary disease, unspecified; Z88.1 Allergy status to other antibiotic agents; Z79.02 Long term (current) use of antithrombotics/antiplatelets; Z90.49 Acquired absence of other specified parts of digestive tract; Z79.899 Other long term (current) drug therapy; Z96.651 Presence of right artificial knee joint; Z87.891 Personal history of nicotine dependence; Z20.822 Contact with and (suspected) exposure to COVID-19
CPT/HCPCS: 36415; 80048; 82785; 85025; 86021; 86140; 86160; 87070; 87077; 87186; 87205; 94640; G0378; G0379; J1650; J2405; J2543; J7512; U0003

== ENCOUNTER 2023-02-18 06:24 | Day surgery (SDC) | payer OTHER, MEDICARE ==
--- NOTE | 2023-02-12 13:30 | RAD REPORT ---
EXAM DESCRIPTION: RAD - Chest Pa And Lat (2 Views) - 02/12/2023 1:25 pm CLINICAL HISTORY: PRE-OP Chest pain. TECHNIQUE: PA and lateral views of the chest were obtained. FINDINGS: The lungs are hyperexpanded compatible with COPD. The heart is upper limit of normal in si ze. No fracture or aggressive bony process. IMPRESSION: COPD without acute process identified. The USPSTF recommends annual screening for lung cancer with low-dose CT (LDCT) in adults aged 50 to 80 years who have a 20 pack-year smoking history and currently smoke or have quit within the past 15 years.
[2023-02-12 13:53] LABS: Potassium 5.2 mEq/L (3.5-5.1)
[2023-02-12 13:57] LABS: Absolute Lymphocytes (CBC) 1.4 K/uL (0.7-4.9); Hematocrit 32.1 % (36.0-45.0); Lymphocytes % 20.3 % (15.3-44.8); MCV 82.7 fL (80-100); MPV 7.7 fL (7.6-11.3); RBC Red Blood Cell Count 3.87 M/uL (3.86-4.86)
[2023-02-18] MEDS ORDERED: Ringers Lactate 1,000 ML IV ONE (07:01)
[2023-02-18] MEDS: CEFAZOLIN SODIUM 1 GM/VIAL ONE ×2 (08:21→09:10)
[2023-02-18] MEDS ORDERED: ONDANSETRON 4 MG/2 ML VIAL ONE ×2 (08:23→09:09)
[2023-02-18] MEDS ORDERED: FENTANYL CITR 100 MCG/2 ML ONE ×2 (08:23→08:54)
[2023-02-18] MEDS ORDERED: LIDOCAINE 2% MPF 5 ML VIAL ONE ×2 (08:23→08:54)
[2023-02-18] MEDS ORDERED: propofoL 200 MG/20 ML VIAL IV ONE ×2 (08:23→08:53)
[2023-02-18] MEDS ORDERED: MIDAZOLAM HCL 2 MG/2 ML INJ ONE (08:53)
[2023-02-18] MEDS ORDERED: LIDOCAINE HCL/EPINEPHRINE 20 ML MDV ONE (09:01)
[2023-02-18] MEDS ORDERED: Mastisol Adhesive Liq ONE (09:44)
[2023-02-18] MEDS ORDERED: HYDROCODONE/APAP 5/325 MG TAB PO PRN (09:45)
--- NOTE | 2023-02-18 09:52 | P.OP ---
Date of Service: 02/18/23 Preop diagnosis: Left-sided headache with vision change, rule out temporal arteritis Postop diagnosis: Same Procedure performed: Left temporal artery biopsy with Doppler Surgeon: Isra Saucedo MD Instructor Industrial Design: Bernadette ONEIL Estimated blood loss: Minimal Specimen: Left temporal artery Findings: As above Anesthesia: General Complications: None Drains: None Fluids and blood products: Nonapplicable Disposition: Recovery room Operative note: Patient brought to the OR and placed in supine position. General anesthesia begun. Patient prepped and draped in usual sterile fashion. An anterior and superior to the left ear lidocaine 1% infiltrated locally. 15 blade used to make a 4 cm incision. Doppler utilized prior to that to localize the branch of the temporal artery. Subcutaneous tissue divided and bleeding controlled cautery. Branch of the temporal artery identified. Sharp and blunt dissection utilized to isolate the proximal and distal part of the artery. Both ends clamped and a 4 cm segment excised. Excised portion of the artery sent to pathology as specimen. Both ends tied with 4-0 silk ties. Wound irrigated and bleeding controlled with cautery. 4-0 chromic used to reapproximate the subcutaneous tissue and close skin. Sterile dressing applied and patient awakened. Patient taken to recovery room in good general condition. CC: Dr. Diallo's office
[2023-02-18] MEDS: LABETALOL 20 MG/4ML SYRINGE IV ONE ×2 (10:01→10:20)
[2023-02-18 10:32] VITALS: TEMP 96.9
[2023-02-18 10:51] VITALS: BP 156/70; O2SAT 97
== END 2023-02-18 11:15 | disposition home or self-care (01) ==
LOC: OR 06:24
PROVIDERS: ATTEND Surgery
PROC: 03BT0ZX Excision of Left Temporal Artery, Open Approach, Diagnostic (ICD-10-PCS; principal; 2023-02-18 07:30)
DX: I70.8 Atherosclerosis of other arteries (principal); R51.9 Headache, unspecified; H53.9 Unspecified visual disturbance
CPT/HCPCS: 37609; 85025; 80048; 36415; 88305; 71046; J2704; J2001; J2250; J3010; J2405; J7120; J0690; 88304

== ENCOUNTER 2025-03-25 16:36 | Inpatient (IN) | payer OTHER, MEDICARE ==
[2025-03-25 17:14] LABS: Absolute Lymphocytes (CBC) 1.5 K/uL (0.7-4.9); Hematocrit 33.8 % (36.0-45.0); Hemoglobin 11.5 g/dL (12.0-15.0); MCH 30.1 pg (27.0-35.0); MCHC 33.9 g/dL (32.0-36.0); MCV 88.8 fL (80-100); MPV 7.6 fL (7.6-11.3); Nucleated RBC Absolute Count 0.0 (0-0); Nucleated Red Blood Cells % 0.1 % (0-0); RBC Red Blood Cell Count 3.80 M/uL (3.86-4.86); White Blood Count 4.90 thou/uL (4.3-10.9)
[2025-03-25 17:15] LABS: PT Prothrombin Time 13.6 SECONDS (10-13.0); Protime INR 1.21
[2025-03-25 17:27] LABS: Anion Gap 8.8 mEq/L (5.0-15.0); BUN Blood Urea Nitrogen 21.0 mg/dL (7-18); Glucose Level 78.0 mg/dL (74-106); NT PRO-BNP 499.0 pg/mL (<450); Potassium 3.8 mEq/L (3.5-5.1); Troponin High Sensitivity 8.1 pg/mL (<58.9)
--- NOTE | 2025-03-25 17:58 | RAD REPORT ---
EXAM: Chest Single View HISTORY: 74 years Female CHEST PAIN COMPARISON: 12/28/2024 FINDINGS: LUNGS/PLEURA: The lungs are clear. No pleural effusions or pneumothorax. No pulmonary edema. CARDIAC/MEDIASTINUM: The cardiac silhouette is within normal limits. UPPER ABDOMEN: No significant abnormality. BONES: No acute abnormality. LINES/TUBES/OTHER: N/A IMPRESSION: No evidence of acute cardiopulmonary disease.
[2025-03-25] MEDS ORDERED: NITROGLYCERIN 0.4 MG/TAB SL ONE (18:07)
--- NOTE | 2025-03-25 18:18 | ER ---
Nurse's Notes [facility] Name: Mary Roberson Age: 74 yrs Sex: Female : 1950 Arrival Date: 03/25/2025 Time: 16:36 Bed 15 Private MD: Diagnosis: Chest pain, unspecified Presentation: 03/25 16:40 Chief complaint: EMS states: TONED OUT TO PATIENT'S HOME FOR CHEST PAIN ONSET AT 1500. cm10 CHEST PAIN STARTED WHEN PATIENT WAS AT REST. PT REPORTS THAT THE CHEST PAIN WAS TO THE LEFT SIDE OF HER CHEST AND RADIATED TO HER LEFT SHOULDER, NECK AND BACK. PT STATES THAT AT THIS TIME HER PAIN RESOLVED. Ebola Screen: Patient denies travel to an Ebola-affected area in the 21 days before illness onset. Initial Sepsis Screen: Does the patient meet any 2 criteria? No. Patient's initial sepsis screen is negative. Does the patient have a suspected source of infection? No. Patient's initial sepsis screen is negative. Risk Assessment: Do you want to hurt yourself or someone else? Patient reports no desire to harm self or others. Onset of symptoms was March 25, 2025. Care prior to arrival: Medication(s) given: ASA, 81 mg, x 4, zofran 4 mg, IV initiated. 20 GA, in the left hand. 16:40 Acuity: LAURIE 2 cm10 16:41 Method Of Arrival: EMS: [facility] cm10 16:56 Coronavirus screen: Client denies travel out of the [place] in the last 14 days. cm10 Triage Assessment: 16:57 General: Appears in no apparent distress. comfortable, Behavior is calm, cooperative. cm10 Pain: Complains of pain in chest Pain radiates to back and left arm Pain currently is 0 out of 10 on a pain scale. at worst was 8 out of 10 on a pain scale. Pain: Quality of pain is described as dull, pressure. Neuro: No deficits noted. Level of Consciousness is awake, alert, obeys commands, Oriented to person, place, time, situation, Appropriate for age. Cardiovascular: Patient's skin is warm and dry. Rhythm is sinus bradycardia Chest pain quality is pressure, is located in left radiates to left back jaw(s) scapula began suddenly. Respiratory: No deficits noted. Airway is patent Respiratory effort is even, unlabored, Respiratory pattern is regular, symmetrical, Breath sounds are clear bilaterally. Historical: - Allergies: 16:40 Levaquin; cm10 - PMHx: 16:40 Carotid blockage; Fibromyalgia; GERD; Hypertension; renal artery blockage; Myocardial cm10 infarction; - PSHx: 16:40 oral SX-dentures top; cm10 - Immunization history:: Adult Immunizations unknown. - Infectious Disease History:: Denies. - Family history:: not pertinent. - Social history:: Smoking status: unknown. - Hospitalizations: : No recent hospitalization is reported. Screenin:25 [facility] ED Fall Risk Assessment (Adult) History of falling in the last 3 months, cm10 including since admission No falls in past 3 months (0 pts) Confusion or Disorientation No (0 pts) Intoxicated or Sedated No (0 pts) Impaired Gait No (0 pts) Mobility Assist Device Used No (0 pt) Altered Elimination No (0 pt) Score/Fall Risk Level 0 - 2 = Low Risk Oriented to surroundings, Maintained a safe environment, Hourly rounding (assess needs \T\ fall precautionary measures) done. Abuse screen: Denies threats or abuse. Denies injuries from another. Nutritional screening: No deficits noted. Tuberculosis screening: No symptoms or risk factors identified. Assessment: 18:09 Reassessment: PT COMPLAINING OF PAIN TO LEFT SIDE OF CHEST. PT DESCRIBES THE PAIN A cm10 PRESSURE. PT RATES PAIN 5/10. DR. SCHROEDER MADE AWARE, REPEAT EKG OBTAINED. 18:44 Reassessment: Pt reports that pain has improved after Nitro. pt currently rates her cm10 pain a 0. 20:00 General: Report faxed to 4th floor, notified floor as well. kd4 20:36 General: Spoke with doctor Madan nolasco about patient bp 202/60, ok with patient kd4 going to floor, states he will put order in , that patient could go to floor. Patient denies cp, sob,dizziness at the moment.. Vital Signs: 16:56 BP 164 / 53; Pulse 55; Resp 18; Temp 97.8(O); Pulse Ox 94% on R/A; Weight 67.13 kg; cm10 Height 5 ft. 0 in. ; Pain 0/10; 17:00 BP 165 / 63; Pulse 60; Resp 16; Pulse Ox 97% on R/A; cm10 17:30 BP 176 / 60; Pulse 56; Resp 15; Pulse Ox 99% on R/A; cm10 18:00 BP 186 / 58; Pulse 55; Resp 15; Pulse Ox 93% on R/A; cm10 18:17 BP 195 / 64; Pulse 57; Resp 13; Pulse Ox 97% on R/A; Pain 3/10; ab3 18:30 BP 169 / 64; Pulse 56; Resp 15; Pulse Ox 96% on R/A; cm10 18:44 Pain 0/10; cm10 19:00 BP 183 / 60; Pulse 57; Resp 17; Pulse Ox 97% on R/A; cm10 19:41 Temp 98.1; kd4 20:38 BP 202 / 60; Pulse 59; Resp 18; Pulse Ox 95% on R/A; kd4 16:56 Body Mass Index 28.90 (67.13 kg, 152.4 cm) cm10 16:56 Pain Scale: Adult cm10 18:17 Pain Scale: Adult ab3 18:44 Pain Scale: Adult cm10 Vitals: 18:17 Cardiac Rhythm Assessment Regular Sinus missael. ab3 ED Course: 16:39 Patient arrived in ED. cm10 16:39 Kinjal Mc, RN is Primary Nurse. cm10 16:39 Ra Schroeder MD is Attending Physician. cm10 16:41 Triage completed. cm10 16:55 Basic Metabolic Panel Sent. cm10 16:55 CBC with Diff Sent. cm10 16:55 NT PRO-BNP Sent. cm10 16:55 PT-INR Sent. cm10 16:55 Troponin HS Sent. cm10 16:55 Initial lab(s) drawn, by mt, sent to lab. EKG done, by ED staff, reviewed by Ra Schroeder MD. Maintain EMS IV. Dressing intact. Good blood return noted. Site clean \T\ dry. Gauge \T\ site: 20g left hand. Flushed with 10 mL NS. Patient maintains SpO2 saturation greater than 95% on room air. 16:58 Arm band placed on right wrist. Patient placed in an exam room, on a stretcher, on cm10 monitor worker, on pulse oximetry. 16:58 Patient has correct armband on for positive identification. Bed in low position. Call cm10 light in reach. Side rails up X2. Client placed on continuous cardiac and pulse oximetry monitoring. NIBP monitoring applied. environmental monitoring technician on. 17:49 XRAY Chest (1 view) In Process Unspecified. EDMS 18:18 Marcos Hager MD is Hospitalizing Provider. rn 20:23 No provider procedures requiring assistance completed. kd4 20:40 Patient admitted, IV remains in place. kd4 20:41 Provided Education on: Need for admit. kd4 Administered Medications: 18:17 Drug: Nitroglycerin Sublingual 0.4 mg Sublingual once Route: Sublingual; ab3 18:44 Follow up: Pain 0/10 Adult; Response: No adverse reaction; Pain is decreased cm10 Medication: 17:25 VIS not applicable for this client. cm10 Outcome: 18:18 Decision to Hospitalize by Provider. rn 20:24 Condition: stable kd4 20:39 Admitted to Tele accompanied by tech, via stretcher, kd4 20:39 Instructed on the need for admit, 20:58 Patient left the ED. cp4 Signatures: Dispatcher [employer] EDMS Ra Schroeder MD MD rn Martinez, Clarissa, RN RN cm10 Jackelin Mcclain cp4 Karen Antonio RN RN kd4 Christine Koch RN RN ab3 Corrections: (The following items were deleted from the chart) 16:57 16:40 Chief complaint: EMS states: TONED OUT TO PATIENT'S HOME FOR CHEST PAIN ONSET AT cm10 1500. CHEST PAIN STARTED WHEN PATIENT WAS AT REST. cm10
--- NOTE | 2025-03-25 18:18 | EDPHYS ---
Physician Documentation [facility] Name: Mary Roberson Age: 74 yrs Sex: Female : 1950 Arrival Date: 03/25/2025 Time: 16:36 Bed 15 Private MD: ED Physician Ra Schroeder HPI: 03/25 16:43 This 74 yrs old Female presents to ER via EMS with complaints of Chest Pain. rn 16:43 Patient reports left-sided/substernal chest pain that radiates to the neck. Associated rn with nausea. Began earlier today. Given aspirin and nitroglycerin by EMS prior to arrival with resolution of pain. Patient reports has had TN before and this felt similar. Currently denies any chest pain or other symptoms. Feels much better.. Historical: - Allergies: 16:40 Levaquin; cm10 - PMHx: 16:40 Carotid blockage; Fibromyalgia; GERD; Hypertension; renal artery blockage; Myocardial cm10 infarction; - PSHx: 16:40 oral SX-dentures top; cm10 - Immunization history:: Adult Immunizations unknown. - Infectious Disease History:: Denies. - Family history:: not pertinent. - Social history:: Smoking status: unknown. - Hospitalizations: : No recent hospitalization is reported. ROS: 16:43 Constitutional: Negative for fever, chills, and weight loss, Neck: Negative for injury, rn pain, and swelling, Cardiovascular: Positive for chest pain Respiratory: Negative for shortness of breath, cough, wheezing, and pleuritic chest pain, Abdomen/GI: Negative for abdominal pain, positive for nausea MS/Extremity: Negative for injury and deformity, Exam: 16:43 Constitutional: This is a well developed, well nourished patient who is awake, alert, rn and in no acute distress. Cardiovascular: Regular rate and rhythm. No pulse deficits. Respiratory: Speaking full sentences, unlabored. No increased work of breathing, no retractions or nasal flaring. Abdomen/GI: Soft, non-tender MS/ Extremity: Pulses equal, no cyanosis. Neurovascular intact. Full, normal range of motion. Equal circumference. Neuro: Awake and alert, GCS 15 16:51 ECG was reviewed by the Attending Physician. rn Vital Signs: 16:56 BP 164 / 53; Pulse 55; Resp 18; Temp 97.8(O); Pulse Ox 94% on R/A; Weight 67.13 kg; cm10 Height 5 ft. 0 in. ; Pain 0/10; 17:00 BP 165 / 63; Pulse 60; Resp 16; Pulse Ox 97% on R/A; cm10 17:30 BP 176 / 60; Pulse 56; Resp 15; Pulse Ox 99% on R/A; cm10 18:00 BP 186 / 58; Pulse 55; Resp 15; Pulse Ox 93% on R/A; cm10 18:17 BP 195 / 64; Pulse 57; Resp 13; Pulse Ox 97% on R/A; Pain 3/10; ab3 18:30 BP 169 / 64; Pulse 56; Resp 15; Pulse Ox 96% on R/A; cm10 18:44 Pain 0/10; cm10 19:00 BP 183 / 60; Pulse 57; Resp 17; Pulse Ox 97% on R/A; cm10 19:41 Temp 98.1; kd4 20:38 BP 202 / 60; Pulse 59; Resp 18; Pulse Ox 95% on R/A; kd4 16:56 Body Mass Index 28.90 (67.13 kg, 152.4 cm) cm10 16:56 Pain Scale: Adult cm10 18:17 Pain Scale: Adult ab3 18:44 Pain Scale: Adult cm10 MDM: 16:40 Medical Screening Exam initiated rn 17:41 Independent interpretation of the following test(s) in the Emergency Department EKG: rn See my EKG interpretation above monitor worker: rate is 57 beats/min, Rhythm is normal sinus rhythm, regular, with no ectopy, Interpretation: bradycardia. 18:06 Independent interpretation of the following test(s) in the Emergency Department X-Ray: rn My interpretation is Chest x-ray images negative for pneumonia or pneumothorax per my interpretation. 18:16 Differential diagnosis: acute myocardial infarction, acute pericarditis, anxiety, rn coronary artery disease chest wall pain, costochondritis, esophagitis, gastritis, gastroesophageal reflux disease (GERD), pleurisy, pneumothorax, stable angina, unstable angina. HEART Score: History: Highly Suspicious (2), ECG: Non specific repolarization disturbance / LBTB / PM (1), Age: > or = 65 years (2), Risk Factors: > or = 3 Risk factors for atherosclerotic disease (2), Troponin: < or = 1 x Normal Limit (0), Total Score = 7. The patient was not given aspirin in the Emergency Department. Administered by EMS. Data reviewed: vital signs, nurses notes, lab test result(s), EKG, radiologic studies, plain films, and as a result, I will admit patient. Consideration of Admission/Observation Patient was admitted/placed on observation. Escalation of care including admission/observation considered. Management of patient was discussed with the following: Hospitalist: Case discussed with hospitalist Dr. Hager, will admit for cardiology consultation and further workup. Care significantly affected by the following chronic conditions: Hypertension, CAD. Counseling: I had a detailed discussion with the patient and/or guardian regarding the historical points, exam findings, and any diagnostic results supporting the discharge/admit diagnosis, the presence of at least one elevated blood pressure reading (>120/80) during this emergency department visit, lab results, radiology results, the need for further work-up and treatment in the hospital. Response to treatment: the patient's symptoms have markedly improved after treatment, and as a result, I will admit patient. 03/25 16:40 Order name: Basic Metabolic Panel; Complete Time: 17:29 rn 03/25 16:40 Order name: CBC with Diff; Complete Time: 17:29 rn 03/25 16:40 Order name: NT PRO-BNP; Complete Time: 17:29 rn 03/25 16:40 Order name: PT-INR; Complete Time: 17:18 rn 03/25 16:40 Order name: Troponin HS; Complete Time: 17:29 rn 03/25 18:54 Order name: CBC with Automated Diff EDMS 03/25 18:54 Order name: CBC with Automated Diff EDMS 03/25 18:54 Order name: Comprehensive Metabolic Panel EDMS 03/25 18:54 Order name: Comprehensive Metabolic Panel EDMS 03/25 18:54 Order name: Troponin High Sensitivity EDMS 03/25 18:54 Order name: Troponin High Sensitivity EDMS 03/25 18:54 Order name: Troponin High Sensitivity EDMS 03/25 18:54 Order name: Troponin High Sensitivity EDMS 03/25 16:40 Order name: XRAY Chest (1 view); Complete Time: 18:05 rn 03/25 16:40 Order name: Cardiac monitoring; Complete Time: 16:55 rn 03/25 16:40 Order name: EKG - Nurse/Tech; Complete Time: 16:55 rn 03/25 16:40 Order name: IV Saline Lock; Complete Time: 16:55 rn 03/25 16:40 Order name: Labs collected and sent; Complete Time: 16:55 rn 03/25 16:40 Order name: O2 Per Protocol; Complete Time: 16:55 rn 03/25 16:40 Order name: O2 Sat Monitoring; Complete Time: 16:55 rn EC:51 Rate is 54 beats/min. Rhythm is regular. QRS [place] is Normal. NM interval is prolonged. rn QRS interval is normal. QT interval is normal. No Q waves. T waves are Normal. No ST changes noted. Clinical impression: 1st degree heart block and Sinus bradycardia. Interpreted by me. Reviewed by me. Administered Medications: 18:17 Drug: Nitroglycerin Sublingual 0.4 mg Sublingual once Route: Sublingual; ab3 18:44 Follow up: Pain 0/10 Adult; Response: No adverse reaction; Pain is decreased cm10 Disposition Summary: 03/25/25 18:18 Hospitalization Ordered Notes: Hospitalization Status: Observation rn Provider: Marcos Hager rn Location: Telemetry/MedSurg (observation) rn Condition: Stable rn Problem: new rn Symptoms: have improved rn Bed/Room Type: Standard rn Room Assignment: 429(03/25/25 20:21) sd4 Diagnosis - Chest pain, unspecified rn Forms: - Medication Reconciliation Form rn - SBAR form rn - Leadership Thank You Letter rn Signatures: Dispatcher [employer] EDMS Ra Schroeder MD MD rn Martinez, Clarissa RN RN [id number] Jahaira Kim Allie, RN RN ab3 Radha Mason RN RN sd4 Corrections: (The following items were deleted from the chart) 16:40 16:40 BASIC METABOLIC PANEL+C.LAB.BRZ ordered. EDNV EDMS 16:40 16:40 CBC+H.LAB.BRZ ordered. EDNV EDMS 16:40 16:40 PROBNP+C.LAB.BRZ ordered. EDNV EDMS 16:40 16:40 PROTIME (+INR)+COAG.LAB.BRZ ordered. EDNV EDMS 16:40 16:40 Troponin High Sensitivity+C.LAB.BRZ ordered. EDNV EDMS 16:40 16:40 Chest Single View+RAD.RAD.BRZ ordered. EDNV EDMS 19:15 18:18 rn vk 20:21 19:15 413 vk sd4
--- NOTE | 2025-03-25 18:49 | P.HP ---
Certification for Inpatient Patient admitted to: Observation With expected LOS: <2 Midnights Practitioner: I am a practitioner with admitting privileges, knowledge of patient current condition, hospital course, and medical plan of care. Services: Services provided to patient in accordance with Admission requirements found in Title 42 Section 412.3 of the Code of Federal Regulations Patient History Date of Service: 03/25/25 Reason for admission: Chest Pain History of Present Illness: 74 yrs old Female with past medical history of CAD status post stents, renal artery stenosis status post stent placement, carotid artery stenosis status post surgery, hypertension, hyperlipidemia, GERD who was brought to ER with chest discomfort. Pain is located is retrosternal with radiation to the back and the neck, pressure-like feeling, 6 out of 10 in severity. No fever or chills. No sick contacts. Denies any shortness of breath. No nausea vomiting or diarrhea. Patient was assessed in the ER and was admitted for further management of chest pain rule out ACS Allergies levofloxacin [From Levaquin] Adverse Reaction (Mild, Verified 02/18/23 07:54) Pain in joints Home medications list reviewed: Yes Home Medications: Betameth Dip 0.05% [Diprosone 0.05% OINTMENT*] 1 florina TOP BIDP PRN 12/09/19 Clopidogrel Bisulfate [Plavix*] 1 tab PO DAILY 12/09/19 Sertraline [Zoloft*] 50 mg PO DAILY 12/09/19 carvediloL [Coreg] 12.5 mg PO BID 12/16/19 Pantoprazole Sodium [Protonix] 40 mg PO DAILY 10/28/20 Benralizumab [Fasenra Pen] 30 mg SQ SEECOM 02/12/23 Acetaminophen [Tylenol] 650 mg PO BEDTIME 03/25/25 Aspirin [Aspirin EC] 81 mg PO DAILY 03/25/25 Atorvastatin Calcium [Lipitor] 80 mg PO BEDTIME 03/25/25 Calcium Carbonate/Vitamin D3 [Calcium 250-D Tablet] 1 each PO BEDTIME 03/25/25 Ferrous Sulfate [Feosol] 325 mg PO DAILY 03/25/25 Foracort 200 1 dose IH BID 03/25/25 Hydralazine HCl 50 mg PO BID 03/25/25 L. Acidophilus/Dig Enz Cmb 5 [Probiotic-Digestive Enzymes] 1 each PO DAILY 03/25/25 Losartan Potassium [Cozaar] 100 mg PO DAILY 03/25/25 Magnesium Chloride [Slow-Mag] 71.5 mg PO BEDTIME 03/25/25 Melatonin 6 mg PO BEDTIME 03/25/25 Naltrexone HCl [Naltrex] 1.5 mg PO DAILY 03/25/25 Naltrexone HCl [Naltrex] 3 mg PO 03/25/25 Nifedipine [Nifedipine ER] 30 mg PO DAILY 03/25/25 - Past Medical/Surgical History Diabetic: No Past Medical History: Reviewed- Non-Contributory -: HTN -: COPD -: Fibromyalgia -: renal artery blockage -: osteoarthritis -: carotid blockage -: Eosinophilic Asthma Past Surgical History: Reviewed- Non-Contributory -: Tonsillectomy -: Appendectomy -: Tubal ligation -: Total knee replacement, Right -: JOSE ALBERTO renal artery stent -: Sinus Sx x2 - Family History Family History: Reviewed- Non-Contributory - Family History Father -: Heart disease, Hypertension, Lung disease, Cancer, Kidney disease Notes: prostate CA, rectal CA Mother -: Liver disease Notes: liver cirrhosis Sister -: Heart disease - Social History Smoking Status: Never smoker Alcohol use: No CD- Drugs: No Caffeine use: Yes Review of Systems 10-point ROS is otherwise unremarkable Other: Constitutional: Reports: generalized weakness. Skin: Denies: rash. Allergy/Immun: Denies: rhinorrhea, sneezing. Eyes: Denies: visual loss/blurred. ENT: Denies: earache, nasal congestion. Respiratory: Denies: non productive cough. Cardiovascular: Denies: chest pain, palpitations. GI: Denies: diarrhea, nausea. : Denies: dysuria. Musculoskeletal: Reports: arthritis. Denies: extremity pain. Heme: Denies: bleeding. Endocrine: Denies: polydipsia. Neuro: Reports: dizziness, gait problem, lightheaded, spinning sensation. Psych: Reports: anxiety. All systems rev & neg: except as noted Physical Examination - Vital Signs Temperature: 97.8 F Blood Pressure: 164/58 Pulse: 55 Respirations: 18 Pulse Ox (%): 94 - Physical Exam General: Alert, Oriented x3, Mild distress HEENT: Atraumatic, Normocephalic Neck: Supple, No Thyromegaly Respiratory: Clear to auscultation bilaterally, Normal air movement Cardiovascular: Regular rate/rhythm, Normal S1 S2 Capillary refill: <2 Seconds Gastrointestinal: Soft and benign, W/out hepatosplenomegaly Musculoskeletal: No clubbing, No swelling Integumentary: No rashes Neurological: Other (Alert awake nonfocal) Lymphatics: No axilla or inguinal lymphadenopathy - Studies Laboratory Data (last 24 hrs) 03/25/25 03/25/25 03/25/25 16:52 16:52 16:52 WBC 4.90 Hgb 11.5 L Hct 33.8 L Plt Count 178 PT 13.6 H INR 1.21 Sodium 142 Potassium 3.8 BUN 21 H Creatinine 0.82 Glucose 78 Assessment and Plan - Plan Unstable angina Will trend cardiac enzymes Will monitor telemetry Started on aspirin and statin Will get an echocardiogram Cardiology consult Hypertensive urgency Antihypertensives titrated Continue home medications and titrate as needed Hyperlipidemia Continue statin Carotid artery stenosis History of CAD Status post stents Renal artery stenosis status post stents Continue home medications and titrate as needed GERD Continue home medications GI/DVT prophylaxis Advanced directive full code - Advance Directives Does patient have a Living Will: Yes Does patient have a Durable POA for Healthcare: Yes - Code Status/Comfort Care Code Status: Full Code Time Spent Managing Pts Care (In Minutes): 48
[2025-03-25 20:54] VITALS: BMI 28.8
[2025-03-25] MEDS: HYDRALAZINE HCL 20 MG/ML VIAL IV PRN (21:48)
[2025-03-25] MEDS: ACETAMINOPHEN 325 MG TABLET PO PRN (22:55)
[2025-03-25] MEDS: MELATONIN 5 MG TABLET PO PRN (22:55)
[2025-03-26 05:48] LABS: Absolute Lymphocytes (CBC) 1.3 K/uL (0.7-4.9); Hematocrit 32.5 % (36.0-45.0); Hemoglobin 11.3 g/dL (12.0-15.0); MCH 30.5 pg (27.0-35.0); MCHC 34.8 g/dL (32.0-36.0); MCV 87.6 fL (80-100); MPV 7.4 fL (7.6-11.3); Nucleated RBC Absolute Count 0.0 (0-0); Nucleated Red Blood Cells % 0.1 % (0-0); RBC Red Blood Cell Count 3.71 M/uL (3.86-4.86); White Blood Count 4.40 thou/uL (4.3-10.9)
[2025-03-26 06:11] LABS: ALT/SGPT 17 U/L (13-56); Albumin 3.3 g/dL (3.4-5.0); Albumin/Globulin Ratio 1.1 (1.1-1.8); Alkaline Phosphatase 60 U/L (45-117); Anion Gap 6.6 mEq/L (5.0-15.0); BUN Blood Urea Nitrogen 16 mg/dL (7-18); Globulin 3.0 g/dL (2.3-3.5); Glucose Level 104 mg/dL (74-106); Potassium 3.6 mEq/L (3.5-5.1)
[2025-03-26 06:18] LABS: AST/SGOT < 10 U/L (15-37)
--- NOTE | 2025-03-26 07:55 | P.PN ---
Date of Service: 03/26/25 Subjective: Endorses high blood pressure. Chest pain has resolved currently. Denies fevers and chills. Review of Systems 10-point ROS is otherwise unremarkable Other: Physical Examination - Vital Signs Temperature: 97.8 F Blood Pressure: 164/58 Pulse: 55 Respirations: 18 Pulse Ox (%): 94 - Physical Exam General: Alert, Oriented x3, Mild distress HEENT: Atraumatic, Normocephalic Neck: Supple, No Thyromegaly Respiratory: Clear to auscultation bilaterally, Normal air movement Cardiovascular: Regular rate/rhythm, Normal S1 S2 Capillary refill: <2 Seconds Gastrointestinal: Soft and benign, W/out hepatosplenomegaly Musculoskeletal: No clubbing, No swelling Integumentary: No rashes Neurological: Other (Alert awake nonfocal) Lymphatics: No axilla or inguinal lymphadenopathy - Studies Laboratory Data (last 24 hrs) 03/25/25 03/25/25 03/25/25 16:52 16:52 16:52 WBC 4.90 Hgb 11.5 L Hct 33.8 L Plt Count 178 PT 13.6 H INR 1.21 Sodium 142 Potassium 3.8 BUN 21 H Creatinine 0.82 Glucose 78 Assessment and Plan - Plan Unstable angina Cardiology consulted and appreciate recommendations N.p.o. at midnight Coronary angiogram in the a.m. Renal angiogram in the a.m. Hypertensive urgency Antihypertensives titrated Continue home medications and titrate as needed Hyperlipidemia Continue statin Carotid artery stenosis History of CAD Status post stents Renal artery stenosis status post stents Continue home medications and titrate as needed GERD Continue home medications GI/DVT prophylaxis Advanced directive full code - Advance Directives Does patient have a Living Will: Yes Does patient have a Durable POA for Healthcare: Yes - Code Status/Comfort Care Code Status: Full Code Time spent on the encounter, including patient evaluation, history taking, physical exam, medical decision making, coordination of care, and documentation, was 35 minutes. Time includes direct [id number] interaction with the patient and indirect time spent reviewing records, ordering tests, and discussing the care plan.
[2025-03-26] MEDS: LACTOBACILLUS/ACIDOPHILUS TAB PO SCH (08:01)
[2025-03-26] MEDS: PANTOPRAZOLE 40MG TABLET PO SCH (08:02)
[2025-03-26] MEDS: NIFEDIPINE XL 30 MG TABLET PO SCH (08:02)
[2025-03-26] MEDS: HYDRALAZINE HCL 25 MG TABLET PO SCH ×2 (08:02→20:46)
[2025-03-26] MEDS: SERTRALINE HCL 50 MG TAB PO SCH (08:02)
[2025-03-26] MEDS: FERROUS SULFATE 325 MG TAB PO SCH (08:02)
[2025-03-26] MEDS: ASPIRIN EC 81 MG TAB PO SCH (08:03)
[2025-03-26] MEDS: CLOPIDOGREL 75 MG TABLET PO SCH (08:03)
[2025-03-26] MEDS: LOSARTAN POTASSIUM 50 MG TABLET PO SCH (08:03)
[2025-03-26] MEDS: ENOXAPARIN 40 MG/0.4 ML SQ SCH (08:04)
[2025-03-26] MEDS: [UNRECOGNIZED DRUG - OTHER] IH SCH (08:04)
--- NOTE | 2025-03-26 12:41 | P.CNS ---
Date of Consult: 03/26/25 Chief Complaint: Chest Pain History of Present Illness: Patient with PMH of CAD s/p stents placement with atherectomy, also renal A disease s/p renal stent, carotid artery disease, pending vascular surgery evaluation, presented with chest pain, pressure in nature, happened yesterday, lasted for 30 minutes, radiated to left arm and neck, also complain of BP fluctuation. Allergies levofloxacin [From Levaquin] Adverse Reaction (Mild, Verified 02/18/23 07:54) Pain in joints Home medications list reviewed: Yes Home Medications: Betameth Dip 0.05% [Diprosone 0.05% OINTMENT*] 1 florina TOP BIDP PRN 12/09/19 Sertraline [Zoloft*] 50 mg PO DAILY 12/09/19 carvediloL [Coreg] 12.5 mg PO BID 12/16/19 Pantoprazole Sodium [Protonix] 40 mg PO DAILY 10/28/20 Benralizumab [Fasenra Pen] 30 mg SQ SEECOM 02/12/23 Acetaminophen [Tylenol] 650 mg PO BEDTIME 03/25/25 Aspirin [Aspirin EC] 81 mg PO DAILY 03/25/25 Atorvastatin Calcium [Lipitor] 80 mg PO BEDTIME 03/25/25 Calcium Carbonate/Vitamin D3 [Calcium 250-D Tablet] 1 each PO BEDTIME 03/25/25 Clonidine Patch [Catapres-Tts 2] 0.2 mg TD EVERY 7TH DAY 03/25/25 Foracort 200 1 dose IH BID 03/25/25 Hydralazine HCl 50 mg PO BID 03/25/25 L. Acidophilus/Dig Enz Cmb 5 [Probiotic-Digestive Enzymes] 1 each PO DAILY 03/25/25 Losartan Potassium [Cozaar] 100 mg PO DAILY 03/25/25 Magnesium Chloride [Slow-Mag] 71.5 mg PO BEDTIME 03/25/25 Melatonin 6 mg PO BEDTIME 03/25/25 Naltrexone HCl [Naltrex] 1.5 mg PO DAILY 03/25/25 Naltrexone HCl [Naltrex] 3 mg PO BEDTIME 03/25/25 Nifedipine [Nifedipine ER] 30 mg PO DAILY 03/25/25 - Past Medical/Surgical History Diabetic: No -: HTN -: COPD -: Fibromyalgia -: renal artery blockage -: osteoarthritis -: carotid blockage -: Eosinophilic Asthma -: GERD -: Tonsillectomy -: Appendectomy -: Tubal ligation -: Total knee replacement, Right -: JOSE ALBERTO renal artery stent -: Sinus Sx x2 -: endarterectomy -: cardiac stents - Family History Father Medical History: Heart disease, Hypertension, Lung disease, Cancer, Kidney disease Notes: prostate CA, rectal CA Mother Medical History: Liver disease Notes: liver cirrhosis Sister Medical History: Heart disease - Social History Smoking Status: Unknown if ever smoked Alcohol use: No CD- Drugs: No Caffeine use: Yes Place of Residence: Home Review of Systems 10-point ROS is otherwise unremarkable Physical Examination Temp Pulse Resp BP Pulse Ox 97.9 F 66 16 172/79 H 93 03/26/25 11:53 03/26/25 12:33 03/26/25 11:53 03/26/25 12:33 03/26/25 11:53 General: Alert, In no apparent distress HEENT: Atraumatic, PERRLA, Mucous membr. moist/pink, EOMI, Sclerae nonicteric Neck: Supple, 2+ carotid pulse no bruit, No LAD, Without JVD or thyroid abnormality Respiratory: Clear to auscultation bilaterally, Normal air movement Cardiovascular: Regular rate/rhythm, Normal S1 S2 Gastrointestinal: Normal bowel sounds, No tenderness Musculoskeletal: No tenderness Integumentary: No rashes Neurological: Normal gait, Normal speech, Normal tone, Normal affect Lymphatics: No axilla or inguinal lymphadenopathy Laboratory Data (last 24 hrs) 03/25/25 03/25/25 03/25/25 16:52 16:52 16:52 WBC 4.90 Hgb 11.5 L Hct 33.8 L Plt Count 178 PT 13.6 H INR 1.21 Sodium 142 Potassium 3.8 BUN 21 H Creatinine 0.82 Glucose 78 - Problems (1) CAD (coronary artery disease) Current Visit: Yes Status: Acute Plan: patient with history of stents placement with unstable angina NPO for coronary angiogram in am ASA 81 mg daily Plavix 75 mg daily (2) Bilateral renal artery stenosis Current Visit: No Status: Chronic Plan: patient with fluctuation of BP, patient with history of renal A stents will do renal angiogram in am (3) Malignant essential hypertension Current Visit: No Status: Chronic Plan: increase Coreg to 25 mg po BID Continue Losartan 100 mg daily increase Hydralazine to 50 mg po TID Continue Clonidine 0.2 mg patch every 7 days continue to monitor.
[2025-03-26] MEDS: DOCUSATE NA/SENNA CONC 1 TAB PO ONE (20:45)
[2025-03-26] MEDS: CALCIUM 250 MG/VITAMIN D 125 IU TAB PO SCH (20:46)
[2025-03-26] MEDS: ATORVASTATIN 80 MG TAB PO SCH (20:46)
[2025-03-27] MEDS: ONDANSETRON 4 MG/2 ML VIAL IV PRN (06:49)
[2025-03-27] MEDS ORDERED: BETAMETHASONE DIP 0.05% CREAM TOP PRN (07:54)
[2025-03-27] MEDS ORDERED: BENRALIZUMAB 30 MG/ML SQ SCH (08:00)
[2025-03-27] MEDS ORDERED: SODIUM CHLORIDE 0.9% 10ML INJ IV PRN (08:09)
[2025-03-27] MEDS: PANTOPRAZOLE 40 MG INJ IVP SCH (09:00)
[2025-03-27] MEDS: NALTREXONE HCL 1.5 MG PO SCH ×2 (09:00→21:00)
[2025-03-27] MEDS: NA CHLORIDE 0.9% 500 ML ONE (09:01)
[2025-03-27] MEDS ORDERED: LIDOCAINE 1% 20 ML MDV ONE (09:04)
[2025-03-27] MEDS ORDERED: HEPA 1000U/500MLS 2,000 UNIT/1,000 ML BAG IV ONE (09:04)
[2025-03-27] MEDS ORDERED: HEPARIN 5000 UNIT/ML 1 ML VIAL ONE (09:05)
[2025-03-27] MEDS ORDERED: HEPARIN 10,000 UNIT/10 ML VIAL IV ONE (10:16)
[2025-03-27] MEDS ORDERED: ATROPINE SULF 1 MG/10 ML SYR IV ONE (10:17)
[2025-03-27] MEDS ORDERED: MIDAZOLAM HCL 2 MG/2 ML INJ ONE (10:18)
[2025-03-27] MEDS ORDERED: FENTANYL CITR 100 MCG/2 ML ONE (10:18)
[2025-03-27] MEDS ORDERED: HYDRALAZINE HCL 20 MG/ML VIAL ONE (11:11)
--- NOTE | 2025-03-27 11:53 | P.PN ---
Subjective Date of Service: 03/27/25 Chief Complaint: Chest Pain Subjective: No new changes, No C/O voiced, Tolerating diet, Ambulating, Improving Review of Systems 10-point ROS is otherwise unremarkable Physical Examination - Vital Signs Temperature: 97.7 F Blood Pressure: 132/61 Pulse: 54 Respirations: 16 Pulse Ox (%): 94 - Physical Exam General: Alert, In no apparent distress HEENT: Atraumatic, PERRLA, EOMI Neck: Supple, JVD not distended Respiratory: Clear to auscultation bilaterally, Normal air movement Cardiovascular: Regular rate/rhythm, Normal S1 S2 Gastrointestinal: Normal bowel sounds, No tenderness Musculoskeletal: No tenderness Integumentary: No rashes Neurological: Normal speech, Normal tone, Normal affect Lymphatics: No axilla or inguinal lymphadenopathy - Studies Medications List Reviewed: Yes Assessment And Plan - Current Problems (Diagnosis) (1) CAD (coronary artery disease) Current Visit: Yes Status: Acute Plan: patient with history of stents placement with unstable angina coronary angiogram done and show patent stents, jailed LCX by LM into LAD stent, no intervention needed. ASA 81 mg daily Plavix 75 mg daily (2) Bilateral renal artery stenosis Current Visit: No Status: Chronic Plan: patient with fluctuation of BP, patient with history of renal A stents Renal angiogram shown significant ISR of bilateral renal stents outpatient follow up to evaluate for intervention (3) Malignant essential hypertension Current Visit: No Status: Chronic Plan: increase Coreg to 25 mg po BID Continue Losartan 100 mg daily increase Hydralazine to 100 mg po TID Continue Clonidine 0.2 mg patch every 7 days consider adding Cardura 4 mg daily if BP still high. continue to monitor. (4) Carotid artery disease Current Visit: Yes Status: Acute Plan: carotid angiogram shown moderate R internal carotid A disease continue ASA 81 mg daily continue Plavix add lipitor 40 mg daily
--- NOTE | 2025-03-27 13:11 | P.DS ---
Admission Date: 03/25/25 Discharge Date: 03/27/25 Disposition: ROUTINE DISCHARGE Reason for Admission: Chest Pain Hospital Course: MATT COMES WITH CHEST HEAVINESS AT REST. SHE HAS LOT OF GI ISSUES. SHE HAS GERD THAT IS NOT CONTROLLED WITH PANTOPRAZOLE. SHE HAD CATH DONE TODAY WITH NO NEW CHANGES. STENTS ARE OPEN. CAROTID HAS SOME STENOSIS BUT NO SURGERY AND RENAL ARTERIES MAY BE BLOCKED EVEN WITH STENTS IN THEM. DR. SYED WILL FU. SHE IS STABLE TO GO HOME. SHE WILL FU WITH DR. WELSH FOR GI SS. Vital Signs/Physical Exam: Temp Pulse Resp BP Pulse Ox 97.7 F 54 16 132/61 94 03/27/25 11:53 03/27/25 11:53 03/27/25 11:53 03/27/25 11:53 03/27/25 11:53 Laboratory Data at Discharge: WBC 4.40 thou/uL (4.3-10.9) 03/26/25 05:01 Hgb 11.3 g/dL (12.0-15.0) L 03/26/25 05:01 Hct 32.5 % (36.0-45.0) L 03/26/25 05:01 Plt Count 169 thou/uL (152-406) 03/26/25 05:01 PT 13.6 SECONDS (10-13.0) H 03/25/25 16:52 INR 1.21 03/25/25 16:52 Sodium 142 mEq/L (136-145) 03/26/25 05:01 Potassium 3.6 mEq/L (3.5-5.1) 03/26/25 05:01 BUN 16 mg/dL (7-18) 03/26/25 05:01 Creatinine 0.77 mg/dL (0.55-1.02) 03/26/25 05:01 Glucose 104 mg/dL (74-106) 03/26/25 05:01 Total Bilirubin 0.5 mg/dL (0.2-1.0) 03/26/25 05:01 AST < 10 U/L (15-37) L 03/26/25 05:01 ALT 17 U/L (13-56) 03/26/25 05:01 Alkaline Phosphatase 60 U/L (45-117) 03/26/25 05:01 Home Medications: Betameth Dip 0.05% [Diprosone 0.05% OINTMENT*] 1 florina TOP BIDP PRN 12/09/19 Sertraline [Zoloft*] 50 mg PO DAILY 12/09/19 carvediloL [Coreg] 12.5 mg PO BID 12/16/19 Pantoprazole Sodium [Protonix] 40 mg PO DAILY 10/28/20 Benralizumab [Fasenra Pen] 30 mg SQ SEECOM 02/12/23 Acetaminophen [Tylenol] 650 mg PO BEDTIME 03/25/25 Aspirin [Aspirin EC] 81 mg PO DAILY 03/25/25 Atorvastatin Calcium [Lipitor] 80 mg PO BEDTIME 03/25/25 Calcium Carbonate/Vitamin D3 [Calcium 250-D Tablet] 1 each PO BEDTIME 03/25/25 Clonidine Patch [Catapres-Tts 2*] 0.2 mg TD EVERY 7TH DAY 03/25/25 Foracort 200 1 dose IH BID 03/25/25 Hydralazine HCl 50 mg PO BID 03/25/25 L. Acidophilus/Dig Enz Cmb 5 [Probiotic-Digestive Enzymes] 1 each PO DAILY 03/25/25 Losartan Potassium [Cozaar] 100 mg PO DAILY 03/25/25 Magnesium Chloride [Slow-Mag] 71.5 mg PO BEDTIME 03/25/25 Melatonin 6 mg PO BEDTIME 03/25/25 Naltrexone HCl [Naltrex] 1.5 mg PO DAILY 03/25/25 Naltrexone HCl [Naltrex] 3 mg PO BEDTIME 03/25/25 Nifedipine [Nifedipine ER] 30 mg PO DAILY 03/25/25 Followup: Feliciano Diallo MD [Primary Care Provider] -
[2025-03-27] MEDS ORDERED: ACETAMINOPHEN 325 MG PO SCH (21:00)
[2025-03-27] MEDS ORDERED: MAGNESIUM CHLORIDE 71.5 MG PO SCH (21:00)
[2025-03-27] MEDS: ACETAMINOPHEN 325 MG TABLET PO SCH (21:05)
[2025-03-27] MEDS: MAGNESIUM CHLORIDE 64 MG TAB PO SCH (21:05)
[2025-03-27] MEDS: MELATONIN 3 MG TABLET PO SCH (22:21)
[2025-03-27 23:37] VITALS: O2SAT 92
--- NOTE | 2025-03-28 02:39 | OP ---
Date of Procedure: 03/27/2025 Surgeon: Zach Davidson Procedures Performed: 1. Selective coronary angiogram with left heart catheterization. 2. Carotid angiogram. 3. Renal angiogram. Indication For Procedure: The patient with past medical history of CAD, multiple stent placement, presented with unstable angina, she also has history of carotid artery disease with abnormal carotid duplex and she has malignant hypertension with history of bilateral renal artery stenting. Complications: None. Estimated Blood Loss: Less than 50 cc. Access: Right common femoral artery, closed by Mynx. Sedation Time: 30 minutes with 1 of Versed and 50 of fentanyl. Description Of Procedure: After risks, benefits, and alternatives were explained to the patient, the patient agreed to proceed with procedure and signed informed consent. The patient was brought back to the garage laborer, prepped and draped in sterile fashion. Time-out was performed. Sedation was administered. Next, right common femoral artery 6-[place]ian access was obtained using ultrasound-guided micropuncture technique. We advanced the JL4 catheter for the selective angiogram of the left coronary artery and then that was later exchanged with a JR4 catheter for selective angiogram of the right coronary artery and that catheter was later pulled back to the right internal common carotid arteries, right and left, where selective angiogram was done. This catheter was later pulled back to the abdominal aorta, where selective angiogram was done was of the right and left renal arteries. At the end of procedure, catheter was removed over a J-wire. Sheath was removed. Mynx was applied. Hemostasis was achieved and the patient was moved back to recovery in stable condition. Coronary angiogram Findings: 1. Left main, mid to distal stent patent extending into the LAD. 2. LAD, proximal to mid stent from the left main is patent, then mild luminal irregularities. 3. Left circ, ostial 50% to 60% disease jailed by stent and then mid stent patent, then distal mild luminal irregularities. 4. RCA, large, dominant with mid calcified 30% disease, then mild luminal irregularities. 5. LVEDP is 10 mmHg. Carotid angiogram findings: 1. Right internal carotid artery, proximal 50% to 60% disease, then mild luminal irregularities. 2. Left internal carotid artery with mild luminal irregularities. Renal angiogram findings: 1. Right renal artery: There is stent from the proximal to mid renal artery, that stent got proximal 90% disease. 2. Left renal artery: There is a stent that is extending from the proximal to mid renal artery and that stent got proximal edge with 70% ISR. Assessment: 1. Moderate ostial left circ disease, jailed by stent, not amenable for intervention with patent left main into LAD and left circ stent. 2. Mild mid RCA disease. 3. Moderate right internal carotid artery disease. 4. Significant bilateral renal artery stents in-stent restenoses. Plan: 1. Continue aggressive medical treatment with aspirin and Plavix. 2. The patient will be evaluated as an outpatient for staged LEADED GLASS INSTALLER of the bilateral renal artery stent. 3. Continue to monitor the moderate right internal carotid artery disease. TERESO/AUREA Voice ID: [id number] Report ID: [id number] SHARONDA
[2025-03-28 08:13] VITALS: BP 138/61
[2025-03-28 08:51] VITALS: TEMP 97.8
--- NOTE | 2025-03-28 12:00 | P.DS ---
Admission Date: 03/27/25 Discharge Date: 03/28/25 Disposition: ROUTINE DISCHARGE Reason for Admission: Chest Pain Brief History of Present Illness: PATIENT WAS READY TO BE DC HOME YESTERDAY IN MY OPINION. SHE BEING ON ANXIOUS SIDE SHE WANTED TO STAY ONE MORE NIGHT FOR BP. DR. MURRAY AGREED WITH HER. SHE STAYED AND THERE WAS NO OTHER CHANGES. HER BP HAS BEEN AN ISSUE. I DIAGNOSED HER RENAL ARTERY STENOSIS ABOUT 10 YEARS AGO. SHE HAD STENTS BY DR. FERREIRA BUT BP WAS BACK TO BEING HIGH IN A YEAR. SHE HAS RESTENOSED AND WILL FU WITH DR. SYED. Hospital Course: MATT COMES WITH CHEST HEAVINESS AT REST. SHE HAS LOT OF GI ISSUES. SHE HAS GERD THAT IS NOT CONTROLLED WITH PANTOPRAZOLE. SHE HAD CATH DONE TODAY WITH NO NEW CHANGES. STENTS ARE OPEN. CAROTID HAS SOME STENOSIS BUT NO SURGERY AND RENAL ARTERIES MAY BE BLOCKED EVEN WITH STENTS IN THEM. DR. SYED WILL FU. SHE IS STABLE TO GO HOME. SHE WILL FU WITH DR. WELSH FOR GI SS. Vital Signs/Physical Exam: Temp Pulse Resp BP Pulse Ox 97.8 F 57 16 138/61 92 03/28/25 08:00 03/28/25 08:11 03/28/25 08:00 03/28/25 08:11 03/28/25 08:00 Laboratory Data at Discharge: WBC 4.40 thou/uL (4.3-10.9) 03/26/25 05:01 Hgb 11.3 g/dL (12.0-15.0) L 03/26/25 05:01 Hct 32.5 % (36.0-45.0) L 03/26/25 05:01 Plt Count 169 thou/uL (152-406) 03/26/25 05:01 PT 13.6 SECONDS (10-13.0) H 03/25/25 16:52 INR 1.21 03/25/25 16:52 Sodium 142 mEq/L (136-145) 03/26/25 05:01 Potassium 3.6 mEq/L (3.5-5.1) 03/26/25 05:01 BUN 16 mg/dL (7-18) 03/26/25 05:01 Creatinine 0.77 mg/dL (0.55-1.02) 03/26/25 05:01 Glucose 104 mg/dL (74-106) 03/26/25 05:01 Total Bilirubin 0.5 mg/dL (0.2-1.0) 03/26/25 05:01 AST < 10 U/L (15-37) L 03/26/25 05:01 ALT 17 U/L (13-56) 03/26/25 05:01 Alkaline Phosphatase 60 U/L (45-117) 03/26/25 05:01 Home Medications: Betameth Dip 0.05% [Diprosone 0.05% OINTMENT*] 1 florina TOP BIDP PRN 12/09/19 Sertraline [Zoloft*] 50 mg PO DAILY 12/09/19 carvediloL [Coreg] 12.5 mg PO BID 12/16/19 Pantoprazole Sodium [Protonix] 40 mg PO DAILY 10/28/20 Benralizumab [Fasenra Pen] 30 mg SQ SEECOM 02/12/23 Acetaminophen [Tylenol] 650 mg PO BEDTIME 03/25/25 Aspirin [Aspirin EC] 81 mg PO DAILY 03/25/25 Atorvastatin Calcium [Lipitor] 80 mg PO BEDTIME 03/25/25 Calcium Carbonate/Vitamin D3 [Calcium 250-D Tablet] 1 each PO BEDTIME 03/25/25 Clonidine Patch [Catapres-Tts 2*] 0.2 mg TD EVERY 7TH DAY 03/25/25 Foracort 200 1 dose IH BID 03/25/25 Hydralazine HCl 50 mg PO BID 03/25/25 L. Acidophilus/Dig Enz Cmb 5 [Probiotic-Digestive Enzymes] 1 each PO DAILY 03/25/25 Losartan Potassium [Cozaar] 100 mg PO DAILY 03/25/25 Magnesium Chloride [Slow-Mag] 71.5 mg PO BEDTIME 03/25/25 Melatonin 6 mg PO BEDTIME 03/25/25 Naltrexone HCl [Naltrex] 1.5 mg PO DAILY 03/25/25 Naltrexone HCl [Naltrex] 3 mg PO BEDTIME 03/25/25 Nifedipine [Nifedipine ER] 30 mg PO DAILY 03/25/25 Followup: Feliciano Diallo MD [Primary Care Provider] - 1 Week Lamont Syed MD [ACTIVE - CAN ADMIT] - 1 Week (Please call the office and make an appointment)
--- NOTE | 2025-03-28 13:14 | ECHO ---
HEIGHT: 5 ft 0 in WEIGHT: 147 lb 8 oz DATE OF STUDY: 03/27/[address]: Henry Hager DO 2-DIMENSIONAL: YES M.MODE: YES DOPPLER: YES COLOR FLOW: YES TDS: PORTABLE: YES DEFINITY: BUBBLE STUDY: DIAGNOSIS: UNSTABLE ANGINA CARDIAC HISTORY: CATHERIZATION: YES SURGERY: NO PROSTHETIC VALVE: NO PACEMAKER: NO MEASUREMENTS (cm) DIASTOLIC (NORMALS) SYSTOLIC (NORMALS) IVSd 1.2 (0.6-1.2) LA Diam 3.3 (1.9-4.0) LVEF 60-65% LVIDd 4.1 (3.5-5.7) LVIDs 2.3 (2.0-3.5) %FS LVPWd 1.2 (0.6-1.2) Ao Diam 2.4 (2.0-3.7) 2 DIMENSIONAL ASSESSMENT: RIGHT ATRIUM: NORMAL LEFT ATRIUM: NORMAL RIGHT VENTRICLE: NORMAL LEFT VENTRICLE: LEFT VENTRICULAR HYPERTROPHY TRICUSPID VALVE: TRACE TRICUSPID REGURGITATION MITRAL VALVE: NORMAL PULMONIC VALVE: NORMAL AORTIC VALVE: NORMAL PERICARDIAL EFFUSION: NONE AORTIC ROOT: NORMAL LEFT VENTRICULAR WALL MOTION: NORMAL DOPPLER/COLOR FLOW: GRADE I DIASTOLIC DYSFUNCTION COMMENTS: 1. NORMAL LEFT VENTRICULAR SYSTOLIC FUNCTION, EJECTION FRACTION 60-65%, NORMAL WALL MOTION 2. GRADE I DIASTOLIC DYSFUNCTION 3. NORMAL FILLING PRESSURE TECHNOLOGIST: PATSY DUNCAN
[2025-04-01] MEDS ORDERED: CLONIDINE 0.2 MG/PATCH TD SCH (09:00)
== END 2025-03-28 10:16 | disposition home or self-care (01) | DRG 287 ==
LOC: ER 16:36 → ERHOLD 18:50 → 4TH 19:45 → OBSVTOIN 03-27 13:05
PROVIDERS: ADMIT Family Medicine; ATTEND Internal Medicine
PROC: 4A023N7 Measurement of Cardiac Sampling and Pressure, Left Heart, Percutaneous Approach (ICD-10-PCS; principal; 2025-03-27)
PROC: B2111ZZ Fluoroscopy of Multiple Coronary Arteries using Low Osmolar Contrast (ICD-10-PCS; 2025-03-27)
PROC: B4181ZZ Fluoroscopy of Bilateral Renal Arteries using Low Osmolar Contrast (ICD-10-PCS; 2025-03-27)
PROC: B3181ZZ Fluoroscopy of Bilateral Internal Carotid Arteries using Low Osmolar Contrast (ICD-10-PCS; 2025-03-27)
DX: I25.110 Atherosclerotic heart disease of native coronary artery with unstable angina pectoris (principal); I16.0 Hypertensive urgency; I70.1 Atherosclerosis of renal artery; I65.29 Occlusion and stenosis of unspecified carotid artery; M79.7 Fibromyalgia; E78.5 Hyperlipidemia, unspecified; I10 Essential (primary) hypertension; M19.90 Unspecified osteoarthritis, unspecified site; K21.9 Gastro-esophageal reflux disease without esophagitis; I25.2 Old myocardial infarction; Z88.1 Allergy status to other antibiotic agents; Z95.5 Presence of coronary angioplasty implant and graft; Z79.82 Long term (current) use of aspirin; Z79.02 Long term (current) use of antithrombotics/antiplatelets; Z90.49 Acquired absence of other specified parts of digestive tract; Z79.899 Other long term (current) drug therapy; Z96.651 Presence of right artificial knee joint
CPT/HCPCS: 36222; 36252; 36415; 71045; 76937; 80048; 80053; 83880; 84484; 85025; 85610; 93005; 93306; 93458; 99152; 99153; 99285; C1760; C1893; G0378; J0360; J0461; J1644; J1650; J2003; J2250; J2405; J2470; J3010; J7040; Q9967

== ENCOUNTER 2025-04-20 11:05 | Observation (INO) | payer OTHER, MEDICARE ==
[2025-04-19 09:50] LABS: Absolute Lymphocytes (CBC) 1.3 K/uL (0.7-4.9); Hematocrit 35.0 % (36.0-45.0); Hemoglobin 11.7 g/dL (12.0-15.0); MCH 29.6 pg (27.0-35.0); MCHC 33.6 g/dL (32.0-36.0); MCV 88.1 fL (80-100); MPV 7.2 fL (7.6-11.3); Nucleated RBC Absolute Count 0.0 (0-0); Nucleated Red Blood Cells % 0.1 % (0-0); RBC Red Blood Cell Count 3.97 M/uL (3.86-4.86); White Blood Count 4.50 thou/uL (4.3-10.9)
[2025-04-19 10:00] LABS: PT Prothrombin Time 12.4 SECONDS (10-13.0); PTT, Activated Partial Thromb 31.0 SECONDS (27.2-37.4); Protime INR 1.1
[2025-04-19 10:05] LABS: Anion Gap 7.5 mEq/L (5.0-15.0); BUN Blood Urea Nitrogen 14.0 mg/dL (7-18); Glucose Level 109.0 mg/dL (74-106); Potassium 4.5 mEq/L (3.5-5.1)
[2025-04-20] MEDS: NA CHLORIDE 0.9% 500 ML ONE (12:19)
[2025-04-20] MEDS ORDERED: HEPARIN 10,000 UNIT/10 ML VIAL IV ONE (12:45)
[2025-04-20] MEDS ORDERED: HEPA 1000U/500MLS 2,000 UNIT/1,000 ML BAG IV ONE (12:45)
[2025-04-20] MEDS ORDERED: NITROGLYCERIN/D5W 50 MG/250 ML BTL IV ONE (12:45)
[2025-04-20] MEDS ORDERED: ASPIRIN 325 MG TAB ONE (12:46)
[2025-04-20] MEDS ORDERED: TICAGRELOR 90 MG TABLET PO ONE (12:46)
[2025-04-20] MEDS ORDERED: LIDOCAINE 1% 20 ML MDV ONE (12:46)
[2025-04-20] MEDS ORDERED: CLOPIDOGREL 75 MG TABLET ONE (12:46)
[2025-04-20] MEDS ORDERED: ATROPINE SULF 1 MG/10 ML SYR IV ONE (12:46)
[2025-04-20] MEDS: MIDAZOLAM HCL 2 MG/2 ML INJ ONE (12:59)
[2025-04-20] MEDS: FENTANYL CITR 100 MCG/2 ML ONE ×2 (12:59→17:30)
[2025-04-20] MEDS ORDERED: HYDRALAZINE HCL 20 MG/ML VIAL ONE (13:52)
--- NOTE | 2025-04-20 16:28 | OP ---
Date of Procedure: 04/20/2025 Surgeon: ROMEO SYED Procedures Performed: 1. Bilateral renal angiogram. 2. Balloon angioplasty of severe left renal artery in-stent restenosis and I used a 6.0 chocolate bal loon to do angioplasty and then placed a 4.0 x 12 mm Synergy drug-eluting stent the proxim al and ostial part where the restenosis was and then postdilated using a 6.0 x 12 mm NC balloon. Indication: Renal artery stenosis. Access: Right common femoral artery 6-[place] closed with manual pressure. Complications: None. Bleeding: Less than 50 mL. Total Sedation Time: 1 hour, used fentanyl and Versed. Description Of Procedure: After risks, benefits, and alternatives were explained, the patient agreed to procedure and signed informed consent. The patient was brought into cardiac catheterization labo ratory, prepped and draped in usual sterile fashion. Then, I accessed right common femoral artery us ing micropuncture kit, ultrasound guidance, and fluoroscopy. Placed 6-[place] Islander Bath sheath and too k a 6-[place]er short CASSY guide, engaged both renal arteries and obtained angiogram and then gave system ic heparin to assure ACT level above 250 throughout the procedure and took Runthrough wire into the r enal artery, placed it in the kidney and then tried NC balloon and could not dilate in-stent restenos is. Then, I took a 6.0 mm chocolate balloon. I was able to do the angioplasty up in the stenosis co mpletely and then since there is a frequent restenosis rate, I took a 4.0 x 12 mm Synergy drug-elutin g stent and I put it in the ostium of the proximal part and then took a 6.0 x 12 mm NC balloon and po stdilated the stent, excellent expansion, 0% residual stenosis and the pressure in the renal artery b efore starting the case was close to 0, and then after the procedure, the pressure was normal similar to the aortic pressure. Subsequently, removed the wire. Final angiogram was satisfactory. Removed the guide and the sheath. Manual pressure was used for closure with good hemostasis. Findings: 1. Right renal artery. There is a stent proximally with 80% to 90% in-stent restenosis. 2. Left renal artery has an ostial to proximal 99% in-stent restenosis, status post successful balloo n angioplasty and stent placement as outlined above. Plan: 1. Aspirin, Plavix, high-dose statin. 2. Staged intervention on the right renal artery in about 4-6 weeks. SR/MODL Voice ID: [id number] Report ID: [id number]
[2025-04-20] MEDS: HYDRALAZINE HCL 20 MG/ML VIAL ONE (17:30)
[2025-04-20] MEDS: HYDROCODONE/APAP 7.5/325 MG TAB ONE (17:52)
[2025-04-20] MEDS ORDERED: ACETAMINOPHEN 325 MG TABLET PO PRN (18:56)
[2025-04-20] MEDS ORDERED: ONDANSETRON 4 MG/2 ML VIAL IV PRN (18:56)
--- NOTE | 2025-04-20 19:00 | P.HP ---
Certification for Inpatient Patient admitted to: Observation With expected LOS: <2 Midnights Practitioner: I am a practitioner with admitting privileges, knowledge of patient current condition, hospital course, and medical plan of care. Services: Services provided to patient in accordance with Admission requirements found in Title 42 Section 412.3 of the Code of Federal Regulations Patient History Date of Service: 04/20/25 Reason for admission: Pain History of Present Illness: 74-year-old female with past medical history of hypertension, hyperlipidemia, COPD, fibromyalgia, renal artery stenosis, osteoarthritis, carotid artery stenosis, GERD who underwent renal artery stenting and was admitted for intractable back pain. Denies any fever or chills. Denies any chest pain. No nausea vomiting or diarrhea. Patient underwent renal artery stenting by Dr. Kennedy today. Postprocedure patient has been having pain in the lower back and generalized weakness and was admitted for postprocedure monitoring Allergies levofloxacin [From Levaquin] Adverse Reaction (Mild, Verified 04/20/25 19:58) Pain in joints Home medications list reviewed: Yes Home Medications: Acetaminophen [Acetaminophen ER] 2 tab PO BID 04/20/25 Aspirin [Aspirin EC 81 MG] 1 tab PO BREAKFAST 04/20/25 Atorvastatin Calcium [Lipitor] 80 mg PO BEDTIME 04/20/25 Clonidine Patch [Catapres-Tts 2] 0.2 mg TD EVERY 7TH DAY 04/20/25 Glucosam/Chond/Hyalu/Cf Borate [Move Free Joint Health Tablet] 1 tab PO DAILY 04/20/25 Glucosamine/Chondroiti/Iapp280 [Cosamin Asu Capsule] 2 cap PO BREAKFAST 04/20/25 Losartan Potassium 100 mg PO DAILY 04/20/25 Melatonin 5 mg PO BEDTIME 04/20/25 NIFEdipine [Nifedipine ER] 30 mg PO DAILY 04/20/25 Pantoprazole Sodium [Protonix] 40 mg PO AC 04/20/25 Sertraline [Zoloft] 50 mg PO DAILY 04/20/25 carvediloL [Carvedilol] 6.25 mg PO BID 04/20/25 - Past Medical/Surgical History Diabetic: No Past Medical History: Reviewed- Non-Contributory -: HTN -: COPD -: Fibromyalgia -: renal artery blockage -: osteoarthritis -: carotid blockage -: Eosinophilic Asthma -: GERD Past Surgical History: Reviewed- Non-Contributory -: Tonsillectomy -: Appendectomy -: Tubal ligation -: Total knee replacement, Right -: JOSE ALBERTO renal artery stent -: Sinus Sx x2 -: endarterectomy -: cardiac stents - Family History Family History: Reviewed- Non-Contributory - Family History Father -: Heart disease, Hypertension, Lung disease, Cancer, Kidney disease Notes: prostate CA, rectal CA Mother -: Liver disease Notes: liver cirrhosis Sister -: Heart disease - Social History Smoking Status: Never smoker Alcohol use: No CD- Drugs: No Caffeine use: Yes Review of Systems 10-point ROS is otherwise unremarkable Other: Constitutional: Reports: generalized weakness. Skin: Denies: rash. Allergy/Immun: Denies: rhinorrhea, sneezing. Eyes: Denies: visual loss/blurred. ENT: Denies: earache, nasal congestion. Respiratory: Denies: non productive cough. Cardiovascular: Denies: chest pain, palpitations. GI: Denies: diarrhea, nausea. : Denies: dysuria. Musculoskeletal: Reports: arthritis. Denies: extremity pain. Heme: Denies: bleeding. Endocrine: Denies: polydipsia. Neuro: Reports: dizziness, gait problem, lightheaded, spinning sensation. Psych: Reports: anxiety. All systems rev & neg: except as noted Physical Examination - Vital Signs Temperature: 97.8 F Blood Pressure: 146/48 Pulse: 70 Respirations: 16 - Physical Exam General: Alert, In no apparent distress, Oriented x3 HEENT: Atraumatic, Normocephalic Neck: Supple Respiratory: Clear to auscultation bilaterally, Normal air movement Cardiovascular: Regular rate/rhythm, Normal S1 S2 Capillary refill: <2 Seconds Gastrointestinal: Soft and benign, W/out hepatosplenomegaly Musculoskeletal: No clubbing Integumentary: No rashes Neurological: Other (Alert awake nonfocal) Lymphatics: No axilla or inguinal lymphadenopathy Assessment and Plan - Plan Intractable back pain Pain control History of fibromyalgia Continue home medications and titrate as needed Renal artery stenosis Status post stent placement Needs staged procedure in 4 weeks Continue home medications and titrate as needed Continue double antiplatelet medications Cardiology consulted Hypertension Antihypertensives titrated Continue home medications and titrate as needed Hyperlipidemia Continue statin Anemia of chronic disease Monitor H&H closely GI/DVT prophylaxis Advanced directive full code Discharge Plan: Home Plan to discharge in: 24 Hours - Advance Directives Does patient have a Living Will: No Does patient have a Durable POA for Healthcare: Yes - Code Status/Comfort Care Code Status: Full Code Time Spent Managing Pts Care (In Minutes): 48
[2025-04-20] MEDS: MELATONIN 5 MG TABLET PO SCH (21:00)
[2025-04-20] MEDS ORDERED: ACETAMINOPHEN 650 MG PO SCH (21:00)
[2025-04-20] MEDS: ATORVASTATIN 80 MG TAB PO SCH (21:14)
[2025-04-20] MEDS: MORPHINE 2 MG/ML SYR IV PRN (21:18)
[2025-04-21 01:01] VITALS: BMI 28.5
[2025-04-21] MEDS: HYDRALAZINE HCL 20 MG/ML VIAL IV PRN (03:57)
[2025-04-21 07:05] LABS: Absolute Lymphocytes (CBC) 1.2 K/uL (0.7-4.9); Hematocrit 34.0 % (36.0-45.0); Hemoglobin 11.4 g/dL (12.0-15.0); MCH 29.6 pg (27.0-35.0); MCHC 33.7 g/dL (32.0-36.0); MCV 88.0 fL (80-100); MPV 7.5 fL (7.6-11.3); Nucleated RBC Absolute Count 0.0 (0-0); Nucleated Red Blood Cells % 0.1 % (0-0); RBC Red Blood Cell Count 3.86 M/uL (3.86-4.86); White Blood Count 8.80 thou/uL (4.3-10.9)
[2025-04-21 07:53] LABS: ALT/SGPT 26.0 U/L (13-56); AST/SGOT 15.0 U/L (15-37); Albumin 3.3 g/dL (3.4-5.0); Albumin/Globulin Ratio 1.0 (1.1-1.8); Alkaline Phosphatase 59.0 U/L (45-117); Anion Gap 8.3 mEq/L (5.0-15.0); BUN Blood Urea Nitrogen 19.0 mg/dL (7-18); Globulin 3.2 g/dL (2.3-3.5); Glucose Level 112.0 mg/dL (74-106); Potassium 4.3 mEq/L (3.5-5.1)
[2025-04-21] MEDS ORDERED: [UNRECOGNIZED DRUG - OTHER] PO SCH (08:00)
[2025-04-21] MEDS ORDERED: [UNRECOGNIZED DRUG - REMARK] PO SCH (09:00)
[2025-04-21] MEDS ORDERED: ASPIRIN 81 MG CHEWABLE TABLET PO SCH (09:00)
[2025-04-21] MEDS: LOSARTAN POTASSIUM 50 MG TABLET PO SCH (09:42)
[2025-04-21] MEDS: CLOPIDOGREL 75 MG TABLET PO SCH (09:42)
[2025-04-21] MEDS: PANTOPRAZOLE 40MG TABLET PO SCH (09:42)
[2025-04-21] MEDS: NIFEDIPINE XL 30 MG TABLET PO SCH (09:42)
[2025-04-21] MEDS: ASPIRIN EC 81 MG TAB PO SCH (09:43)
[2025-04-21] MEDS: SERTRALINE HCL 50 MG TAB PO SCH (09:43)
[2025-04-21] MEDS: HYDROCODONE/APAP 5/325 MG TAB PO PRN (12:07)
[2025-04-21 13:55] VITALS: O2SAT 93
--- NOTE | 2025-04-21 14:03 | P.CNS ---
Date of Consult: 04/21/25 Chief Complaint: Pain History of Present Illness: Patient with PMH of HTN, renal A stenosis, s/p renal A stenting for ISR yesterday, was admitted overnight for monitoring as she started having back pain after procedure, feels better today and was able to ambulate without any difficu lty. Allergies levofloxacin [From Levaquin] Adverse Reaction (Mild, Verified 04/20/25 19:58) Pain in joints Home medications list reviewed: Yes Home Medications: Acetaminophen [Acetaminophen ER] 2 tab PO BID 04/20/25 Aspirin [Aspirin EC 81 MG] 1 tab PO BREAKFAST 04/20/25 Atorvastatin Calcium [Lipitor] 80 mg PO BEDTIME 04/20/25 Clonidine Patch [Catapres-Tts 2] 0.2 mg TD EVERY 7TH DAY 04/20/25 Glucosam/Chond/Hyalu/Cf Borate [Move Free Joint Health Tablet] 1 tab PO DAILY 04/20/25 Glucosamine/Chondroiti/[id number] [Cosamin Asu Capsule] 2 cap PO BREAKFAST 04/20/25 Losartan Potassium 100 mg PO DAILY 04/20/25 Melatonin 5 mg PO BEDTIME 04/20/25 NIFEdipine [Nifedipine ER] 30 mg PO DAILY 04/20/25 Pantoprazole Sodium [Protonix] 40 mg PO AC 04/20/25 Sertraline [Zoloft] 50 mg PO DAILY 04/20/25 carvediloL [Carvedilol] 6.25 mg PO BID 04/20/25 - Past Medical/Surgical History Diabetic: No -: HTN -: COPD -: Fibromyalgia -: renal artery blockage -: osteoarthritis -: carotid blockage -: Eosinophilic Asthma -: GERD -: Tonsillectomy -: Appendectomy -: Tubal ligation -: Total knee replacement, Right -: JOSE ALBERTO renal artery stent -: Sinus Sx x2 -: endarterectomy -: cardiac stents - Family History Father Medical History: Heart disease, Hypertension, Lung disease, Cancer, Kidney disease Notes: prostate CA, rectal CA Mother Medical History: Liver disease Notes: liver cirrhosis Sister Medical History: Heart disease - Social History Smoking Status: Unknown if ever smoked Alcohol use: No CD- Drugs: No Caffeine use: Yes Place of Residence: Home Review of Systems 10-point ROS is otherwise unremarkable Physical Examination Temp Pulse Resp BP Pulse Ox 98.6 F 73 18 162/72 H 92 04/21/25 12:00 04/21/25 12:00 04/21/25 12:00 04/21/25 12:00 04/21/25 12:00 General: Alert, In no apparent distress HEENT: Atraumatic, PERRLA, Mucous membr. moist/pink, EOMI, Sclerae nonicteric Neck: Supple, 2+ carotid pulse no bruit, No LAD, Without JVD or thyroid abnormality Respiratory: Clear to auscultation bilaterally, Normal air movement Cardiovascular: Regular rate/rhythm, Normal S1 S2 Gastrointestinal: Normal bowel sounds, No tenderness Musculoskeletal: No tenderness Integumentary: No rashes Neurological: Normal gait, Normal speech, Normal tone, Normal affect Lymphatics: No axilla or inguinal lymphadenopathy Laboratory Data (last 24 hrs) 04/21/25 04/21/25 06:57 06:51 WBC 8.80 Hgb 11.4 L Hct 34.0 L Plt Count 174 Sodium 139 Potassium 4.3 BUN 19 H Creatinine 0.93 Glucose 112 H Total Bilirubin 0.6 AST 15 ALT 26 Alkaline Phosphatase 59 - Problems (1) CAD (coronary artery disease) Current Visit: No Status: Acute Plan: stable, continue medical treatment ASA 81 mg daily outpatient follow up with cardiology (2) Bilateral renal artery stenosis Current Visit: No Status: Chronic Plan: s/p left renal A stenting need staged Right renal A stent, will be arranged through office. continue ASA 81 mg daily continue Plavix 75 mg daily continue Lipitor 80 mg daily (3) Malignant essential hypertension Current Visit: No Status: Chronic Plan: continue home BP medications.
[2025-04-21 16:05] VITALS: BP 168/72; TEMP 98.3
[2025-04-27] MEDS ORDERED: CLONIDINE 0.2 MG/PATCH TD SCH (09:00)
--- NOTE | 2025-05-08 11:48 | P.DS ---
Discharge Date: 04/21/25 Disposition: ROUTINE DISCHARGE Discharge Condition: GOOD Reason for Admission: Pain Brief History of Present Illness: 74-year-old female with past medical history of hypertension, hyperlipidemia, COPD, fibromyalgia, renal artery stenosis, osteoarthritis, carotid artery stenosis, GERD who underwent renal artery stenting and was admitted for intractable back pain. Denies any fever or chills. Denies any chest pain. No nausea vomiting or diarrhea. Patient underwent renal artery stenting by Dr. Kennedy today. Postprocedure patient has been having pain in the lower back and generalized weakness and was admitted for postprocedure monitoring Hospital Course: Patient has done well during hospital stay. Patient clinically doing well. At this time, patient is stable for discharge home. Vital Signs/Physical Exam: Temp Pulse Resp BP Pulse Ox 98.3 F 69 16 168/72 H 94 04/21/25 16:00 04/21/25 16:00 04/21/25 16:00 04/21/25 16:00 04/21/25 16:00 General: Alert, In no apparent distress, Oriented x3 Laboratory Data at Discharge: WBC 8.80 thou/uL (4.3-10.9) 04/21/25 06:57 Hgb 11.4 g/dL (12.0-15.0) L 04/21/25 06:57 Hct 34.0 % (36.0-45.0) L 04/21/25 06:57 Plt Count 174 thou/uL (152-406) 04/21/25 06:57 PT 12.4 SECONDS (10-13.0) 04/19/25 09:35 INR 1.10 04/19/25 09:35 APTT 31.0 SECONDS (27.2-37.4) 04/19/25 09:35 Sodium 139 mEq/L (136-145) 04/21/25 06:51 Potassium 4.3 mEq/L (3.5-5.1) 04/21/25 06:51 BUN 19 mg/dL (7-18) H 04/21/25 06:51 Creatinine 0.93 mg/dL (0.55-1.02) 04/21/25 06:51 Glucose 112 mg/dL (74-106) H 04/21/25 06:51 Total Bilirubin 0.6 mg/dL (0.2-1.0) 04/21/25 06:51 AST 15 U/L (15-37) 04/21/25 06:51 ALT 26 U/L (13-56) 04/21/25 06:51 Alkaline Phosphatase 59 U/L (45-117) 04/21/25 06:51 Home Medications: Acetaminophen [Acetaminophen ER] 2 tab PO BID 04/20/25 Aspirin [Aspirin EC 81 MG] 1 tab PO BREAKFAST 04/20/25 Atorvastatin Calcium [Lipitor] 80 mg PO BEDTIME 04/20/25 Clonidine Patch [Catapres-Tts 2*] 0.2 mg TD EVERY 7TH DAY 04/20/25 Glucosam/Chond/Hyalu/Cf Borate [Move Free Joint Health Tablet] 1 tab PO DAILY 04/20/25 Glucosamine/Chondroiti/Fnry033 [Cosamin Asu Capsule] 2 cap PO BREAKFAST 04/20/25 Losartan Potassium 100 mg PO DAILY 04/20/25 Melatonin 5 mg PO BEDTIME 04/20/25 NIFEdipine [Nifedipine ER] 30 mg PO DAILY 04/20/25 Pantoprazole Sodium [Protonix] 40 mg PO AC 04/20/25 Sertraline [Zoloft*] 50 mg PO DAILY 04/20/25 carvediloL [Carvedilol] 6.25 mg PO BID 04/20/25 Clopidogrel Bisulfate [Plavix*] 75 mg PO DAILY #30 tab 04/21/25 Hydrocodone 5/APAP 325 [[address] 5/325*] 1 tab PO Q8HP PRN #20 tab 04/21/25 New Medications: Hydrocodone 5/APAP 325 [[address] 5/325*] 1 tab PO Q8HP PRN #20 tab PRN Reason: Pain Scale 5-7 (Moderate) Clopidogrel Bisulfate [Plavix*] 75 mg PO DAILY #30 tab Physician Discharge Instructions: -DC IV and DC home -Follow-up with PCP in 1 to 2 weeks -Follow-up with Cardiology in 1 to 2 weeks -Please call Dr. Mcduffie at [phone] if any questions regarding hospital stay -Please call nursing station at [phone] if any nursing or medication questions -Return to the emergency room if symptoms worsen Diet: AHA Activity: Fall precautions Followup: Feliciano Diallo MD [Primary Care Provider] - 1-2 Weeks Time spent managing pt's care (in minutes): 35
== END 2025-04-21 17:15 | disposition home or self-care (01) ==
LOC: CCL 11:05 → 2ND 18:49
PROVIDERS: ADMIT Family Medicine; ATTEND Hospitalist
PROC: 047A34Z Dilation of Left Renal Artery with Drug-eluting Intraluminal Device, Percutaneous Approach (ICD-10-PCS; principal; 2025-04-20)
PROC: B4181ZZ Fluoroscopy of Bilateral Renal Arteries using Low Osmolar Contrast (ICD-10-PCS; 2025-04-20)
DX: T82.856A Stenosis of peripheral vascular stent, initial encounter (principal); I70.1 Atherosclerosis of renal artery; I25.10 Atherosclerotic heart disease of native coronary artery without angina pectoris; I65.29 Occlusion and stenosis of unspecified carotid artery; R53.1 Weakness; M54.50 Low back pain, unspecified; I10 Essential (primary) hypertension; J44.9 Chronic obstructive pulmonary disease, unspecified; E78.5 Hyperlipidemia, unspecified; M79.7 Fibromyalgia; J82.83 Eosinophilic asthma; K21.9 Gastro-esophageal reflux disease without esophagitis; M19.90 Unspecified osteoarthritis, unspecified site; F41.9 Anxiety disorder, unspecified; R42 Dizziness and giddiness; R26.9 Unspecified abnormalities of gait and mobility; D63.8 Anemia in other chronic diseases classified elsewhere; Z88.1 Allergy status to other antibiotic agents
CPT/HCPCS: 93005; 85025 ×2; 80048; 36415 ×2; 85610; 85347; 85730; 80053; 37236; 36252; 76937; 94760 ×2; C1893; Q9966; C1725 ×2; J0360 ×3; J2003; J2250; J3010 ×2; J2270; J1644; J7040; G0379; G0378 ×2; C1760; 99152; 99153; J0461